=== PATIENT | female | born 1970 | race Caucasian/White ===

== ENCOUNTER 2017-09-05 14:36 | Emergency (ER) | payer BC, OTHER ==
[~2017-09-05] VITALS: Ht 177.8 cm; Wt 98.0 kg
[2017-09-05 14:45] VITALS: TEMP 36.9; Ht 177.8 cm; Wt 98.0 kg
[2017-09-05] MEDS ORDERED: ONDANSETRON INJ 2 MG/ML 2 ML VIAL IV STA (14:47)
[2017-09-05] MEDS ORDERED: KETOROLAC TROMETHAMINE 30 MG/ML VIAL IV STA (14:47)
[2017-09-05] MEDS ORDERED: SODIUM CHLORIDE 0.9% 1000ML 1,000 ML IV STA (14:47)
--- NOTE | 2017-09-05 14:55 | EMERGENCY ROOM VISIT NOTE ---
History Report prepared by Ross: Ben Pereyra Under the Supervision of: Dr. Otto Andujar M.D. First contact with patient: 14:42 Chief Complaint: ILLNESS Stated Complaint: ILLNESS History of Present Illness The patient is a 47 year old female who presents to the Emergency Room via EMS with complaints of a sudden illness that started around an hour ago. She states that when she first got up this morning, she felt a bit tired and appeared a bit pale, but other than that, the first part of the day seemed okay. The patient went to work, and was doing fine, but then all of a sudden she started feeling sick, with diarrhea initially. She says that her hands and feet started "twitching", and she felt flushed. The patient adds that she started feeling like she was getting hives with itching. She says that she was nauseous, and then vomited a bit later, and she says that she vomited a lot. The patient states that she also had a deep throbbing pain in her upper abdomen. She says that she then laid down, but got very weak and lightheaded. She states that she still feels very weak. The patient denies any fevers. She says that she has not had any known recent sick contacts with a similar illness. The patient states that she has not eaten anything abnormal recently. She says that she does not take any daily medications, but is diabetic and has mild hypertension. The patient notes that she has had a lot of family stress recently. She says that she has a history of a hysterectomy, cholecystectomy, and tubal ligation. Source of History: patient Onset: An hour ago Position: other (global) Quality: other (illness) Timing: other (sudden) Associated Symptoms: + nausea, + vomiting, + abdominal pain, + diarrhea, + fatigue, + weakness (and lightheaded), No fevers Note: Associated symptoms: Extremity "twitching". Itching. Review of Systems See HPI for pertinent positives & negatives. A total of 10 systems reviewed and were otherwise negative. Past Medical & Surgical Medical Problems: (1) Diabetes (2) HTN (hypertension) Surgical Problems: (1) History of cholecystectomy (2) History of hysterectomy (3) Hx of tubal ligation Family History No pertinent family history Social History Marital Status: Housing Status: lives with family Occupation Status: employed Current/Historical Medications Scheduled Ondasetron Odt (Zofran Odt), 4 MG SL Q6H Allergies Coded Allergies: Morphine and Related (Verified Allergy, Severe, Severe stomach pain, ) Sulfa Antibiotics (Verified Allergy, Intermediate, HIVES, 10/06/13) Physical Exam Vital Signs Date Time Temp Pulse Resp B/P (MAP) Pulse Ox O2 Delivery O2 Flow Rate FiO2 09/05/17 18:07 84 16 148/101 96 09/05/17 17:22 97 09/05/17 16:49 80 26 140/82 09/05/17 14:58 91 09/05/17 14:45 36.9 87 16 174/107 98 Room Air Physical Exam GENERAL: Patient is in no acute distress. HEENT: No acute trauma, normocephalic atraumatic, mucous membranes are a little bit dry, no nasal congestion, no scleral icterus. NECK: No stridor, no adenopathy, no meningismus, trachea is midline. LUNGS: Clear to auscultation bilaterally, no wheeze, no rhonchi, breath sounds equal. HEART: Without murmurs gallops or rubs, regular rate and rhythm. ABDOMEN: Mildly tender in the left lower quadrant. Soft, bowel sounds positive, no hernias, no peritonitis. EXTREMITIES: No cyanosis or edema, full range of motion of all the joints without pain or difficulty, no signs for acute trauma. NEUROLOGIC: Oriented x 3, no acute motor or sensory deficits, no focal weakness. SKIN: No rash, no jaundice, no diaphoresis. Medical Decision & Procedures ER Provider Diagnostic Interpretation: X-ray results as stated below per interpretation by me and the radiologist: ABDOMEN 2VIEW W/PA CHEST RTN HISTORY: 47 years-old Female pain, vomiting acute generalized abdominal pain with vomiting COMPARISON: None available TECHNIQUE: PA view the chest with erect and supine views of the abdomen FINDINGS: Cardiomediastinal and hilar silhouettes are within normal limits. No pneumothorax, pleural effusion, focal airspace consolidation or overt pulmonary edema. Bones of the chest appear grossly intact. Degenerative changes of the spine. Bowel gas pattern is nonobstructive. Multiple scattered small bowel air-fluid levels are noted throughout the abdomen, notably within the central abdomen. No pneumatosis or pneumoperitoneum. Cholecystectomy clips noted. Calcifications of the pelvis suggest phleboliths. No urolith or fracture. IMPRESSION: 1. Nonobstructive bowel gas pattern. Multiple scattered small bowel air-fluid levels throughout the abdomen suggest enteritis or ileus. 2. No pneumatosis or pneumoperitoneum. 3. Prior cholecystectomy. 4. No acute process of the chest. The above report was generated using voice recognition software. It may contain grammatical, syntax or spelling errors. Electronically signed by: Shukri Gaytan M.D. 09/05/2017 3:41 PM Dictated Date/Time: 09/05/2017 3:39 PM Laboratory Results 09/05/17 14:55 Red Blood Count 5.53, Mean Corpuscular Volume 85.7, Mean Corpuscular Hemoglobin 31.1, Mean Corpuscular Hemoglobin Concent 36.3, Mean Platelet Volume 9.2, Neutrophils (%) (Auto) 67.5, Lymphocytes (%) (Auto) 25.9, Monocytes (%) (Auto) 5.9, Eosinophils (%) (Auto) 0.4, Basophils (%) (Auto) 0.1, Neutrophils # (Auto) 6.15, Lymphocytes # (Auto) 2.36, Monocytes # (Auto) 0.54, Eosinophils # (Auto) 0.04, Basophils # (Auto) 0.01 09/05/17 14:55 Test 09/05/17 14:55 09/05/17 15:42 White Blood Count 9.12 K/uL (4.8-10.8) Red Blood Count 5.53 M/uL (4.2-5.4) Hemoglobin 17.2 g/dL (12.0-16.0) Hematocrit 47.4 % (37-47) Mean Corpuscular Volume 85.7 fL (80-100) Mean Corpuscular Hemoglobin 31.1 pg (25-34) Mean Corpuscular Hemoglobin Concent 36.3 g/dl (32-36) Platelet Count 261 K/uL (130-400) Mean Platelet Volume 9.2 fL (7.4-10.4) Neutrophils (%) (Auto) 67.5 % Lymphocytes (%) (Auto) 25.9 % Monocytes (%) (Auto) 5.9 % Eosinophils (%) (Auto) 0.4 % Basophils (%) (Auto) 0.1 % Neutrophils # (Auto) 6.15 K/uL (1.4-6.5) Lymphocytes # (Auto) 2.36 K/uL (1.2-3.4) Monocytes # (Auto) 0.54 K/uL (0.11-0.59) Eosinophils # (Auto) 0.04 K/uL (0-0.5) Basophils # (Auto) 0.01 K/uL (0-0.2) RDW Standard Deviation 39.9 fL (36.4-46.3) RDW Coefficient of Variation 12.8 % (11.5-14.5) Immature Granulocyte % (Auto) 0.2 % Immature Granulocyte # (Auto) 0.02 K/uL (0.00-0.02) Anion Gap 8.0 mmol/L (3-11) Est Creatinine Clear Calc Drug Dose 108.7 ml/min Estimated GFR () 99.5 Estimated GFR (Non- 85.8 BUN/Creatinine Ratio 16.0 (10-20) Calcium Level 9.6 mg/dl (8.5-10.1) Magnesium Level 2.2 mg/dl (1.8-2.4) Total Bilirubin 0.5 mg/dl (0.2-1) Aspartate Amino Transf (AST/SGOT) 13 U/L (15-37) Alanine Aminotransferase (ALT/SGPT) 27 U/L (12-78) Alkaline Phosphatase 80 U/L (45-117) Total Protein 7.8 gm/dl (6.4-8.2) Albumin 3.7 gm/dl (3.4-5.0) Globulin 4.1 gm/dl (2.5-4.0) Albumin/Globulin Ratio 0.9 (0.9-2) Lipase 240 U/L (73-393) Human Chorionic Gonadotropin, Qual NEG (NEG) Urine Color DK YELLOW Urine Appearance CLOUDY (CLEAR) Urine pH 5.0 (4.5-7.5) Urine Specific [place] 1.033 (1.000-1.030) Urine Protein 2+ (NEG) Urine Glucose (UA) 1+ (NEG) Urine Ketones TRACE (NEG) Urine Occult Blood 1+ (NEG) Urine Nitrite NEG (NEG) Urine Bilirubin NEG (NEG) Urine Urobilinogen NEG (NEG) Urine Leukocyte Esterase NEG (NEG) Urine WBC (Auto) 5-10 /hpf (0-5) Urine RBC (Auto) 0-4 /hpf (0-4) Urine Hyaline Casts (Auto) 10-30 /lpf (0-5) Urine Epithelial Cells (Auto) >30 /lpf (0-5) Urine Bacteria (Auto) NEG (NEG) Urine Crystals CALCIUM OXALATE (NONE Urine Pathogenic Casts 1-5 GRANULAR CASTS /lpf (0) Laboratory results reviewed by me. Medications Administered Medications (Trade) Dose Ordered Sig/Rosanna Route Start Time Stop Time Status Last Admin Dose Admin Ondansetron HCl (Zofran Inj) 4 mg NOW STAT IV 09/05/17 14:47 09/05/17 14:49 DC 09/05/17 15:09 4 MG Sodium Chloride 1,000 ml @ 999 mls/hr Q1H1M STAT IV 09/05/17 14:47 09/05/17 15:47 DC 09/05/17 15:09 999 MLS/HR Ketorolac Tromethamine (Toradol Inj) 30 mg NOW STAT IV 09/05/17 14:47 09/05/17 14:49 DC 09/05/17 15:09 30 MG ECG Per My Interpretation Indication: vomiting Rate (beats per minute): 85 Rhythm: normal sinus Findings: no ectopy, other (no ST elevation, no PVCs) ED Course 1443: The patient was evaluated in room A2. A complete history and physical exam was performed. 1447: Toradol Inj 30 mg IV, NSS 1000 ml @ 999 mls/hr IV, Zofran Inj 4 mg IV. 1637: I reevaluated the patient and she is doing better. She was updated. 1801: Reevaluated the patient and she is resting comfortably. Discussed results and discharge instructions: she verbalized understanding and agreement. The patient is ready for discharge. Medical Decision Differential diagnosis includes but is not limited to dehydration, electrolyte imbalance, food-borne or viral illness, pancreatitis, diverticulitis, anemia. There is no leukocytosis or concerning anemia. No significant electrolyte abnormality, kidney failure, hepatitis or pancreatitis. Urinalysis shows contamination, no infection. Obstruction series shows an ileus, no bowel obstruction, pneumonia or free air. On exam, the patient was not febrile or toxic. There was no peritonitis. Patient received IV Toradol, IV Zofran and IV saline. She is feeling improved. The patient presents with the sudden onset of abdominal cramping, vomiting and diarrhea. The illness is likely viral and/or foodborne. She is being discharged with Zofran, rest and hydration. If worsening, she can return. Medication Reconcilliation Current Medication List: was personally reviewed by me Blood Pressure Screening Patient's blood pressure: Elevated blood pressure Blood pressure disposition: Referred to PCP Impression Primary Impression: Nausea, vomiting and diarrhea Additional Impression: Abdominal cramping Scribe Attestation The scribe's documentation has been prepared under my direction and personally reviewed by me in its entirety. I confirm that the note above accurately reflects all work, treatment, procedures, and medical decision making performed by me. Departure Information Dispostion Home / Self-Care Prescriptions Ondasetron Odt (ZOFRAN ODT) 4 Mg Tab 4 MG SL Q6H for Nausea, #10 TAB Prov: Otto Andujar M.D. 09/05/17 Referrals Geremias Chavez M.D. (PCP) Forms HOME CARE DOCUMENTATION FORM, IMPORTANT VISIT INFORMATION, WORK / SCHOOL INSTRUCTIONS Patient Instructions My [facility] [employer] Additional Instructions bland diet---crackers, soup, toast, gatorade, rice tylenol for pain and aches zofran 1 tab every 6 hours for nausea rest return if worsening testing was all ok today--blood sugar was a little high Problem Qualifiers
[2017-09-05 15:08] LABS: BASO % 0.1 %; BASO ABS # 0.01 K/uL (0-0.2); EOS % 0.4 %; EOS ABS # 0.04 K/uL (0-0.5); HEMATOCRIT 47.4 % (37-47); HEMOGLOBIN 17.2 g/dL (12.0-16.0); IG# 0.02 K/uL (0.00-0.02); LYMPH % 25.9 %; LYMPH ABS # 2.36 K/uL (1.2-3.4); MEAN CELL VOLUME 85.7 fL (80-100); MEAN CORPUSCULAR HEMOGLOBIN 31.1 pg (25-34); MEAN CORPUSCULAR HGB CONC 36.3 g/dl (32-36); MEAN PLATELET VOLUME 9.2 fL (7.4-10.4); MONO % 5.9 %; MONO ABS # 0.54 K/uL (0.11-0.59); NEUT % 67.5 %; NEUT ABS # 6.15 K/uL (1.4-6.5); PLATELET COUNT 261 K/uL (130-400); RED CELL DISTRIBUTION WIDTH CV 12.8 % (11.5-14.5); RED CELL DISTRIBUTION WIDTH SD 39.9 fL (36.4-46.3); WHITE BLOOD COUNT 9.12 K/uL (4.8-10.8)
[2017-09-05 15:41] LABS: ALBUMIN 3.7 gm/dl (3.4-5.0); CALCIUM 9.6 mg/dl (8.5-10.1); CREATININE 0.82 mg/dl (0.60-1.20); POTASSIUM 3.3 mmol/L (3.5-5.1)
--- NOTE | 2017-09-05 15:42 | DIAGNOSTIC IMAGING REPORT ---
ABDOMEN 2VIEW W/PA CHEST RTN HISTORY: 47 years-old Female pain, vomiting acute generalized abdominal pain with vomiting COMPARISON: None available TECHNIQUE: PA view the chest with erect and supine views of the abdomen FINDINGS: Cardiomediastinal and hilar silhouettes are within normal limits. No pneumothorax, pleural effusion, focal airspace consolidation or overt pulmonary edema. Bones of the chest appear grossly intact. Degenerative changes of the spine. Bowel gas pattern is nonobstructive. Multiple scattered small bowel air-fluid levels are noted throughout the abdomen, notably within the central abdomen. No pneumatosis or pneumoperitoneum. Cholecystectomy clips noted. Calcifications of the pelvis suggest phleboliths. No urolith or fracture. IMPRESSION: 1. Nonobstructive bowel gas pattern. Multiple scattered small bowel air-fluid levels throughout the abdomen suggest enteritis or ileus. 2. No pneumatosis or pneumoperitoneum. 3. Prior cholecystectomy. 4. No acute process of the chest. The above report was generated using voice recognition software. It may contain grammatical, syntax or spelling errors. Electronically signed by: Shukri Gaytan M.D. 09/05/2017 3:41 PM Dictated Date/Time: 09/05/2017 3:39 PM
[2017-09-05 15:44] LABS: TOTAL PROTEIN 7.8 gm/dl (6.4-8.2)
[2017-09-05] MEDS ORDERED: ONDA4TAB10 SL (18:00)
[2017-09-05 18:07] VITALS: BP 148/101; PULSE 84; O2SAT 96
== END 2017-09-05 18:03 | disposition home or self-care (01) ==
LOC: C.EDA 14:36 → EDBD 14:36 → C.EDA 18:03
DX: R11.2 Nausea with vomiting, unspecified (principal); R19.7 Diarrhea, unspecified; R10.84 Generalized abdominal pain; E11.9 Type 2 diabetes mellitus without complications; I10 Essential (primary) hypertension; Z88.5 Allergy status to narcotic agent; Z88.2 Allergy status to sulfonamides

== ENCOUNTER 2017-09-26 09:55 | Emergency (ER) | payer OTHER ==
[~2017-09-26] VITALS: Ht 177.8 cm; Wt 94.0 kg
[~2017-09-26 09:55] MED LIST: ONDA4TAB10 SL
[2017-09-26 09:58] VITALS: TEMP 36.7; Ht 177.8 cm; Wt 94.0 kg
[2017-09-26] MEDS ORDERED: SODIUM CHLORIDE 0.9% 1000ML 1,000 ML IV STA (10:09)
[2017-09-26] MEDS ORDERED: ONDANSETRON INJ 2 MG/ML 2 ML VIAL IV STA (10:09)
[2017-09-26] MEDS ORDERED: GI COCKTAIL PO STA (10:10)
[2017-09-26] MEDS ORDERED: LIDOCAINE HCL 2% VISC SOLN 20 ML UDC ONE (10:58)
[2017-09-26] MEDS ORDERED: ALUMINUM/MAGNESIUM SUSP 30 ML UDC ONE (10:59)
[2017-09-26 11:09] LABS: BASO % 0.2 %; BASO ABS # 0.02 K/uL (0-0.2); EOS % 0.9 %; EOS ABS # 0.08 K/uL (0-0.5); HEMATOCRIT 44.8 % (37-47); HEMOGLOBIN 16.8 g/dL (12.0-16.0); IG# 0.01 K/uL (0.00-0.02); LYMPH % 22.7 %; LYMPH ABS # 2.11 K/uL (1.2-3.4); MEAN CELL VOLUME 85.7 fL (80-100); MEAN CORPUSCULAR HEMOGLOBIN 32.1 pg (25-34); MEAN CORPUSCULAR HGB CONC 37.5 g/dl (32-36); MEAN PLATELET VOLUME 9.3 fL (7.4-10.4); MONO % 6.8 %; MONO ABS # 0.63 K/uL (0.11-0.59); NEUT % 69.3 %; NEUT ABS # 6.46 K/uL (1.4-6.5); PLATELET COUNT 259 K/uL (130-400); RED CELL DISTRIBUTION WIDTH CV 12.7 % (11.5-14.5); WHITE BLOOD COUNT 9.31 K/uL (4.8-10.8)
[2017-09-26 11:26] LABS: ALBUMIN 3.8 gm/dl (3.4-5.0); CALCIUM 9.1 mg/dl (8.5-10.1); CREATININE 0.76 mg/dl (0.60-1.20); POTASSIUM 3.8 mmol/L (3.5-5.1)
[2017-09-26] MEDS ORDERED: OPTIRAY 320 IV PRN (12:00)
--- NOTE | 2017-09-26 12:17 | DIAGNOSTIC IMAGING REPORT ---
ABDOMEN AND PELVIS CT WITH IV CONTRAST CT DOSE: 1114.43 mGycm HISTORY: Acute severe epigastric abdominal pain severe epigastric abd pain TECHNIQUE: Multiaxial CT images of the abdomen and pelvis were performed following the use of intravenous contrast. A dose lowering technique was utilized adhering to the principles of ALARA. COMPARISON STUDY: None. FINDINGS: Lung bases are clear with minimal dependent subsegmental bibasilar atelectasis. There is no pneumatosis or pneumoperitoneum identified. The imaged inferior cardiac chambers are unremarkable. Prior cholecystectomy. Minimal intrahepatic biliary ductal dilation is likely secondary to postcholecystectomy state. The liver otherwise appears unremarkable. The spleen, pancreas and adrenal glands are within normal limits. Patent portal vein. Abdominal aorta is normal in course and caliber without aneurysm or dissection with mild mixed plaquing. No bulky adenopathy identified. Kidneys, ureters and bladder are within normal limits. Mild urinary bladder distention. Prior hysterectomy. No adnexal mass lesions. There is trace free fluid within the cul-de-sac. No bowel obstruction or focal bowel wall thickening identified. Several fluid-filled nondilated loops of ileum are noted along with fluid within the right hemicolon. The visualized appendix appears normal, the distal tip not definitively seen. Soft tissues are unremarkable. Bones appear intact. Facet arthrosis of the lower lumbar spine. IMPRESSION: 1. No acute intra-abdominal or intrapelvic abnormality identified. Normal appendix. 2. No bowel obstruction. Fluid-filled loops of ileum with fluid also noted within the right hemicolon is likely physiologic with enteritis/diarrheal state also within the differential. 3. Prior cholecystectomy and hysterectomy. 4. Minimal free pelvic fluid, possibly physiologic. Electronically signed by: Shukri Gaytan M.D. 09/26/2017 12:16 PM Dictated Date/Time: 09/26/2017 12:08 PM
[2017-09-26 12:37] VITALS: BP 195/112; PULSE 88; O2SAT 98
--- NOTE | 2017-09-26 14:02 | EMERGENCY ROOM VISIT NOTE ---
History Report prepared by Ross: James Cantu Under the Supervision of: Dr. Ismael Moctezuma D.O. First contact with patient: 09:59 Chief Complaint: ABDOMINAL PAIN Stated Complaint: stomach pain History of Present Illness The patient is a 47 year old female who presents to the Emergency Room with complaints of intermittent epigastric abdominal pain beginning shortly prior to arrival. She describes her pain as a feeling of "heaviness". The patient's pain has now resolved. She also complains of nausea and diarrhea. She denies any modifying factors (not worsened with eating). The patient was seen in the ED three weeks ago for similar symptoms. She states that she has been having episodes of this pain for about there years. Her most recent episode before today was three weeks ago. The patient's last normal bowel movement was one hour ago. Pt denies headache, change in vision, fevers, chest pain, shortness of breath, vomiting, pain with urination, and melena. She has a history of complete hysterectomy and cholecystectomy. She has followed up with her GI doctor for her symptoms in the past. Source of History: patient Onset: Shortly prior to arrival Position: abdomen (epigastric) Quality: other ("heaviness") Timing: intermittent, resolved Modifying Factors (Worsening): other (none) Modifying Factors (Relieving): other (none) Associated Symptoms: + nausea, + diarrhea, No fevers, No headache, No chest pain, No SOB, No vomiting, No melena, No urinary symptoms Review of Systems See HPI for pertinent positives & negatives. A total of 10 systems reviewed and were otherwise negative. Past Medical & Surgical Medical Problems: (1) Diabetes (2) HTN (hypertension) Surgical Problems: (1) History of cholecystectomy (2) History of hysterectomy (3) Hx of tubal ligation Family History No pertinent family history Social History Smoking Status: Unknown if Ever Smoked Marital Status: Housing Status: lives with family Occupation Status: employed Current/Historical Medications No Active Prescriptions or Reported Meds Allergies Coded Allergies: Morphine and Related (Verified Allergy, Severe, Severe stomach pain, ) Sulfa Antibiotics (Verified Allergy, Intermediate, HIVES, 09/26/17) Physical Exam Vital Signs Date Time Temp Pulse Resp B/P (MAP) Pulse Ox O2 Delivery O2 Flow Rate FiO2 09/26/17 12:37 88 18 195/112 98 Room Air 09/26/17 09:58 36.7 80 20 205/118 98 Room Air Physical Exam GENERAL: Standing up in room, minimal distress, non-toxic, holding epigastric region. EYE EXAM: normal conjunctiva. OROPHARYNX: no exudate, no erythema, lips, buccal mucosa, and tongue normal and mucous membranes are moist NECK: supple, no nuchal rigidity, no adenopathy, non-tender LUNGS: Clear to auscultation. Normal chest wall mechanics HEART: no murmurs, S1 normal and S2 normal ABDOMEN: abdomen soft, normo-active bowel sounds, no masses, no rebound or guarding. Tender to palpation of the epigastric region. BACK: Back is symmetrical on inspection and there is no deformity, no midline tenderness, no CVA tenderness. SKIN: no rashes and no bruising UPPER EXTREMITIES: upper extremities are grossly normal. LOWER EXTREMITIES: No pitting edema. NEURO EXAM: Normal sensorium, cranial nerves II-XII grossly intact, normal speech, no gross weakness of arms, no gross weakness of legs. Medical Decision & Procedures ER Provider Diagnostic Interpretation: Radiology results as stated below per my review and the radiologist's interpretation: ABDOMEN AND PELVIS CT WITH IV CONTRAST FINDINGS: Lung bases are clear with minimal dependent subsegmental bibasilar atelectasis. There is no pneumatosis or pneumoperitoneum identified. The imaged inferior cardiac chambers are unremarkable. Prior cholecystectomy. Minimal intrahepatic biliary ductal dilation is likely secondary to postcholecystectomy state. The liver otherwise appears unremarkable. The spleen, pancreas and adrenal glands are within normal limits. Patent portal vein. Abdominal aorta is normal in course and caliber without aneurysm or dissection with mild mixed plaquing. No bulky adenopathy identified. Kidneys, ureters and bladder are within normal limits. Mild urinary bladder distention. Prior hysterectomy. No adnexal mass lesions. There is trace free fluid within the cul-de-sac. No bowel obstruction or focal bowel wall thickening identified. Several fluid-filled nondilated loops of ileum are noted along with fluid within the right hemicolon. The visualized appendix appears normal, the distal tip not definitively seen. Soft tissues are unremarkable. Bones appear intact. Facet arthrosis of the lower lumbar spine. IMPRESSION: 1. No acute intra-abdominal or intrapelvic abnormality identified. Normal appendix. 2. No bowel obstruction. Fluid-filled loops of ileum with fluid also noted within the right hemicolon is likely physiologic with enteritis/diarrheal state also within the differential. 3. Prior cholecystectomy and hysterectomy. 4. Minimal free pelvic fluid, possibly physiologic. Electronically signed by: Shukri Gaytan M.D. 09/26/2017 12:16 PM Laboratory Results 09/26/17 10:55 Red Blood Count 5.23, Mean Corpuscular Volume 85.7, Mean Corpuscular Hemoglobin 32.1, Mean Corpuscular Hemoglobin Concent 37.5, Mean Platelet Volume 9.3, Neutrophils (%) (Auto) 69.3, Lymphocytes (%) (Auto) 22.7, Monocytes (%) (Auto) 6.8, Eosinophils (%) (Auto) 0.9, Basophils (%) (Auto) 0.2, Neutrophils # (Auto) 6.46, Lymphocytes # (Auto) 2.11, Monocytes # (Auto) 0.63, Eosinophils # (Auto) 0.08, Basophils # (Auto) 0.02 09/26/17 10:55 Test 09/26/17 10:30 09/26/17 10:55 Urine Color YELLOW Urine Appearance CLEAR (CLEAR) Urine pH 5.5 (4.5-7.5) Urine Specific [place] 1.015 (1.000-1.030) Urine Protein 1+ (NEG) Urine Glucose (UA) NEG (NEG) Urine Ketones 1+ (NEG) Urine Occult Blood TRACE (NEG) Urine Nitrite NEG (NEG) Urine Bilirubin NEG (NEG) Urine Urobilinogen NEG (NEG) Urine Leukocyte Esterase SMALL (NEG) Urine WBC (Auto) 1-5 /hpf (0-5) Urine RBC (Auto) 0-4 /hpf (0-4) Urine Hyaline Casts (Auto) 1-5 /lpf (0-5) Urine Epithelial Cells (Auto) 10-20 /lpf (0-5) Urine Bacteria (Auto) NEG (NEG) Urine Test NEG (NEG) White Blood Count 9.31 K/uL (4.8-10.8) Red Blood Count 5.23 M/uL (4.2-5.4) Hemoglobin 16.8 g/dL (12.0-16.0) Hematocrit 44.8 % (37-47) Mean Corpuscular Volume 85.7 fL (80-100) Mean Corpuscular Hemoglobin 32.1 pg (25-34) Mean Corpuscular Hemoglobin Concent 37.5 g/dl (32-36) Platelet Count 259 K/uL (130-400) Mean Platelet Volume 9.3 fL (7.4-10.4) Neutrophils (%) (Auto) 69.3 % Lymphocytes (%) (Auto) 22.7 % Monocytes (%) (Auto) 6.8 % Eosinophils (%) (Auto) 0.9 % Basophils (%) (Auto) 0.2 % Neutrophils # (Auto) 6.46 K/uL (1.4-6.5) Lymphocytes # (Auto) 2.11 K/uL (1.2-3.4) Monocytes # (Auto) 0.63 K/uL (0.11-0.59) Eosinophils # (Auto) 0.08 K/uL (0-0.5) Basophils # (Auto) 0.02 K/uL (0-0.2) RDW Standard Deviation 40.0 fL (36.4-46.3) RDW Coefficient of Variation 12.7 % (11.5-14.5) Immature Granulocyte % (Auto) 0.1 % Immature Granulocyte # (Auto) 0.01 K/uL (0.00-0.02) Anion Gap 6.0 mmol/L (3-11) Est Creatinine Clear Calc Drug Dose 114.9 ml/min Estimated GFR () 109.0 Estimated GFR (Non- 94.1 BUN/Creatinine Ratio 22.2 (10-20) Calcium Level 9.1 mg/dl (8.5-10.1) Total Bilirubin 0.6 mg/dl (0.2-1) Direct Bilirubin 0.1 mg/dl (0-0.2) Aspartate Amino Transf (AST/SGOT) 16 U/L (15-37) Alanine Aminotransferase (ALT/SGPT) 23 U/L (12-78) Alkaline Phosphatase 69 U/L (45-117) Total Protein 8.0 gm/dl (6.4-8.2) Albumin 3.8 gm/dl (3.4-5.0) Lipase 230 U/L (73-393) Laboratory results per my review. Medications Administered Medications (Trade) Dose Ordered Sig/Rosanna Route Start Time Stop Time Status Last Admin Dose Admin Sodium Chloride 1,000 ml @ 999 mls/hr Q1H1M STAT IV 5/9/18 10:09 09/26/17 11:09 DC 09/26/17 11:07 999 MLS/HR Ondansetron HCl (Zofran Inj) 4 mg NOW STAT IV 09/26/17 10:09 09/26/17 10:11 DC 09/26/17 11:07 4 MG Miscellaneous Medication (Gi Cocktail) 24 ml NOW STAT PO 09/26/17 10:10 09/26/17 10:11 DC 09/26/17 11:08 24 ML ED Course ED COURSE: Vital signs were reviewed and showed hypertension. The patients medical record was reviewed The above diagnostic studies were performed and reviewed. ED treatments and interventions as stated above. 1002: The patient was evaluated in room A9B. A complete history and physical examination was performed. 1009: Ordered Zofran Inj 4 mg IV, Sodium Chloride 1000 ml @ 999 mls/hr IV. 1010: Ordered GI Cocktail 24 mL PO. 1230: Upon reevaluation, the patient is resting comfortably. She notes that she has known hypertension with her blood pressure usually at around 170 systolic, but does not take medication for this. I advised she follow up with her PCP about this. I discussed my findings with the patient and she understands and agrees with the treatment plan. Based on the patients age, coexisting illnesses, exam and lab findings the decision to treat as an outpatient was made. The patient remained stable while under my care. The patient appeared well at the time of discharge. Medical Decision Differential diagnoses includes but is not limited to gastritis, peptic ulcer disease, GERD, gallbladder disease, pancreatitis, small bowel obstruction, acute coronary syndrome, pericarditis, ischemic bowel, irritable bowel disease, irritable bowel syndrome, appendicitis, diverticulitis, malignancy, hernia, urinary tract infection, torsion, /ectopic , perforation, trauma, infectious. Patient is a 47-year-old female that presents the ER for epigastric abdominal pain associated with nausea. She notes that it was initially extremely severe in nature and has now resolved. She has been getting this for the past 3 years. It comes and goes every 3 months. CBC along with BMP, LFTs, bilirubin lipase is unremarkable. UA was negative. was negative. CT abdomen pelvis was fairly unremarkable. Patient had complete resolution of her symptoms. She was discharged follow-up with her GI physician as an outpatient. Discussed with Pt concerning signs and symptoms to watch out for. Pt was instructed to follow up with their PCP and discussed with the patient their option to return to the ED at anytime for persistent or worsening symptoms. The appropriate anticipatory guidance and out-patient management, including indications for return to the emergency department, were explained at length to the patient and understood. Medication Reconcilliation Current Medication List: was personally reviewed by me Blood Pressure Screening Patient's blood pressure: Elevated blood pressure Blood pressure disposition: Referred to PCP Impression Primary Impression: Abdominal pain Scribe Attestation The scribe's documentation has been prepared under my direction and personally reviewed by me in its entirety. I confirm that the note above accurately reflects all work, treatment, procedures, and medical decision making performed by me. Departure Information Dispostion Home / Self-Care Prescriptions No Active Prescriptions or Reported Meds Referrals Geremias Chavez M.D. (PCP) Forms Call Back Authorization, HOME CARE DOCUMENTATION FORM, IMPORTANT VISIT INFORMATION Patient Instructions Abdominal Pain - [facility] Additional Instructions Please follow up with your primary care doctor with in the next 24 hours. Any worsening of your symptoms, please return to the ED immediately. This includes any fevers greater than 100.4, worsening pain, chest pain, shortness breath, persistent nausea, vomiting, unable to eat or drink, or any other concerning signs or symptoms from your standpoint. Please take Tylenol or Motrin as needed for pain. Please make sure you follow-up with your GI doctor in regards to your intermittent abdominal pain. Problem Qualifiers Primary Impression: Abdominal pain Abdominal location: unspecified location Qualified Codes: R10.9 - Unspecified abdominal pain
== END 2017-09-26 12:51 | disposition home or self-care (01) ==
LOC: C.EDB 09:56 → C.EDA 12:51
DX: R10.13 Epigastric pain (principal); R11.2 Nausea with vomiting, unspecified; E11.9 Type 2 diabetes mellitus without complications; I10 Essential (primary) hypertension; Z90.49 Acquired absence of other specified parts of digestive tract; Z90.710 Acquired absence of both cervix and uterus; Z98.51 Tubal ligation status; Z88.5 Allergy status to narcotic agent; Z88.1 Allergy status to other antibiotic agents; Z23 Encounter for immunization

== ENCOUNTER 2017-12-31 13:44 | Emergency (ER) | payer OTHER ==
[~2017-12-31] VITALS: Ht 177.8 cm; Wt 95.3 kg
[2017-12-31 13:50] VITALS: Ht 177.8 cm; Wt 95.3 kg
[2017-12-31 13:57] VITALS: O2SAT 92
[2017-12-31] MEDS ORDERED: ATEN-173 PO (14:03)
[2017-12-31] MEDS ORDERED: FAMOTIDINE 20MG/5ML IV PUSH IV STA (14:11)
[2017-12-31] MEDS ORDERED: SODIUM CHLORIDE 0.9% 1000ML 1,000 ML IV STA (14:11)
[2017-12-31 14:45] LABS: BASO % 0.1 %; BASO ABS # 0.01 K/uL (0-0.2); EOS % 0.4 %; EOS ABS # 0.04 K/uL (0-0.5); HEMATOCRIT 49.3 % (37-47); HEMOGLOBIN 17.7 g/dL (12.0-16.0); IG# 0.04 K/uL (0.00-0.02); LYMPH % 17.8 %; LYMPH ABS # 1.98 K/uL (1.2-3.4); MEAN CELL VOLUME 88.4 fL (80-100); MEAN CORPUSCULAR HEMOGLOBIN 31.7 pg (25-34); MEAN CORPUSCULAR HGB CONC 35.9 g/dl (32-36); MEAN PLATELET VOLUME 9.6 fL (7.4-10.4); MONO % 6.7 %; MONO ABS # 0.75 K/uL (0.11-0.59); NEUT % 74.6 %; NEUT ABS # 8.33 K/uL (1.4-6.5); PLATELET COUNT 261 K/uL (130-400); RED CELL DISTRIBUTION WIDTH SD 41.8 fL (36.4-46.3); WHITE BLOOD COUNT 11.15 K/uL (4.8-10.8)
[2017-12-31 15:03] LABS: ALBUMIN 3.7 gm/dl (3.4-5.0); ALKALINE PHOSPHATASE 79 U/L (45-117); ALT/SGPT 29 U/L (12-78); AST/SGOT 19 U/L (15-37); BLOOD UREA NITROGEN 15 mg/dl (7-18); CALCIUM 9.3 mg/dl (8.5-10.1); CARBON DIOXIDE 28 mmol/L (21-32); CREATININE 0.94 mg/dl (0.60-1.20); GLUCOSE 219 mg/dl (70-99); LIPASE 244 U/L (73-393); POTASSIUM 3.7 mmol/L (3.5-5.1); SODIUM 135 mmol/L (136-145); TOTAL PROTEIN 8.1 gm/dl (6.4-8.2)
--- NOTE | 2017-12-31 15:28 | DIAGNOSTIC IMAGING REPORT ---
CHEST ONE VIEW PORTABLE CLINICAL HISTORY: 47 years-old Female presenting with ABDOMINAL PAIN/GI. TECHNIQUE: Portable upright AP view of the chest was obtained. COMPARISON: 09/05/2017. FINDINGS: Cardiomediastinal silhouette normal. Lungs and pleural spaces clear. Degenerative changes of the thoracic spine. Upper abdomen normal. IMPRESSION: 1. No acute cardiopulmonary disease. Electronically signed by: Wilbur Urbano M.D. 12/31/2017 3:27 PM Dictated Date/Time: 12/31/2017 3:26 PM
[2017-12-31] MEDS ORDERED: NITROFURANTOIN MONOHYDRATE 100 MG CAP PO STA (15:48)
[2017-12-31] MEDS ORDERED: NITR-5 PO (15:52)
[2017-12-31] MEDS ORDERED: FAMO40TA6 PO (15:52)
[2017-12-31 16:05] VITALS: BP 141/72; PULSE 68; TEMP 36.9; O2SAT 98
--- NOTE | 2017-12-31 21:18 | EMERGENCY ROOM VISIT NOTE ---
History Report prepared by Ross: Angie Toure Under the Supervision of: Dr. Julián Montiel M.D. 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 pt c/o n/v . medical personel told medic pt threw self on floor while she was in pain this has happened before. pt reports she has been in the ed for same sx 2 x in the past and told all tests were fine. gall bladder and pancreas tests were negative. History of Present Illness The patient is a 47 year old female who presents to the Emergency Room with complaints of persistent epigastric abdominal pain since earlier this morning. She states this is the third episode of the same pain in 3 months. The pain started while she was at work this morning at [employer] and she describes it as feeling like "a gas bubble". She then felt flushed and diaphoretic and had 1 episode of diarrhea, so EMS was called. She has not experienced melena or hematochezia. She rates her pain as a 2/10 in severity. She did experience nausea and lightheadedness but did not vomit. She did briefly experience chest pain. The patient notes she did eat about 30 minutes before the pain started, but denies the meal being very large or greasy. Her last colonoscopy was approximately 15 years ago. The patient has a history of diabetes which she states is currently managed by diet. She also takes medication for hypertension. She denies any recent difficulty breathing. She still has her appendix but no longer has her gallbladder. She has come to the ED in the past for her pain, but states "all the tests were negative". Source of History: patient Onset: earlier this morning Position: abdomen (epigastric area) Symptom Intensity: 2/10 Timing: other (persistent) Associated Symptoms: + diaphoresis, + chest pain, + nausea, + diarrhea, No SOB, No vomiting, No melena, No hematochezia Review of Systems See HPI for pertinent positives and negatives. A total of ten systems were reviewed and were otherwise negative. Past Medical & Surgical Medical Problems: (1) Diabetes (2) HTN (hypertension) Surgical Problems: (1) History of cholecystectomy (2) History of hysterectomy (3) Hx of tubal ligation Family History No pertinent family history Social History Smoking Status: Never Smoker Alcohol Use: none Drug Use: none Marital Status: Housing Status: lives with family Occupation Status: employed Current/Historical Medications Scheduled Atenolol (Tenormin), 0.5 TAB PO DAILY Famotidine (Pepcid), 1 TAB PO DAILY Nitrofurantoin Monohyd Macrocr (Macrobid), 100 MG PO BID Allergies Coded Allergies: Morphine and Related (Verified Allergy, Severe, Severe stomach pain, ) Sulfa Antibiotics (Verified Allergy, Intermediate, HIVES, 12/31/17) Physical Exam Vital Signs Date Time Temp Pulse Resp B/P (MAP) Pulse Ox O2 Delivery O2 Flow Rate FiO2 12/31/17 16:05 36.9 68 20 141/72 98 12/31/17 14:37 63 22 130/79 98 Room Air 12/31/17 13:58 63 12/31/17 13:57 92 Room Air 12/31/17 13:50 37.1 66 18 114/81 92 Room Air Physical Exam GENERAL: Awake, alert, lying with eyes closed on stretcher, well-appearing, in no distress HENT: Normocephalic, atraumatic. Oropharynx unremarkable. EYES: Normal conjunctiva. Sclera non-icteric. NECK: Supple. No nuchal rigidity. RESPIRATORY: Clear to auscultation. No wheezes. Normal respiratory effort. CARDIAC: Normal rate. Normal rhythm. Extremities warm and well perfused. GI: Soft, non-distended. No tenderness to palpation. No rebound or guarding. No masses. RECTAL: Deferred. MUSCULOSKELETAL: Atraumatic. Chest examination reveals no tenderness. There is no CVA tenderness to palpation. LOWER EXTREMITIES: Calves are equal size bilaterally and non-tender. No edema NEURO: Normal sensorium. No sensory or motor deficits noted. No facial droop. SKIN: Warm and dry. No rash or jaundice noted. Medical Decision & Procedures ER Provider Diagnostic Interpretation: Radiology results as stated below per my review and radiologist interpretation: CHEST ONE VIEW PORTABLE CLINICAL HISTORY: 47 years-old Female presenting with ABDOMINAL PAIN/GI. TECHNIQUE: Portable upright AP view of the chest was obtained. COMPARISON: 09/05/2017. FINDINGS: Cardiomediastinal silhouette normal. Lungs and pleural spaces clear. Degenerative changes of the thoracic spine. Upper abdomen normal. IMPRESSION: 1. No acute cardiopulmonary disease. Electronically signed by: Wilbur Urbano M.D. 12/31/2017 3:27 PM Laboratory Results 12/31/17 14:30 Red Blood Count 5.58, Mean Corpuscular Volume 88.4, Mean Corpuscular Hemoglobin 31.7, Mean Corpuscular Hemoglobin Concent 35.9, Mean Platelet Volume 9.6, Neutrophils (%) (Auto) 74.6, Lymphocytes (%) (Auto) 17.8, Monocytes (%) (Auto) 6.7, Eosinophils (%) (Auto) 0.4, Basophils (%) (Auto) 0.1, Neutrophils # (Auto) 8.33, Lymphocytes # (Auto) 1.98, Monocytes # (Auto) 0.75, Eosinophils # (Auto) 0.04, Basophils # (Auto) 0.01 12/31/17 14:30 Test 12/31/17 14:22 12/31/17 14:30 Urine Color YELLOW Urine Appearance CLOUDY (CLEAR) Urine pH 5.0 (4.5-7.5) Urine Specific [place] 1.013 (1.000-1.030) Urine Protein 1+ (NEG) Urine Glucose (UA) NEG (NEG) Urine Ketones TRACE (NEG) Urine Occult Blood TRACE (NEG) Urine Nitrite NEG (NEG) Urine Bilirubin NEG (NEG) Urine Urobilinogen NEG (NEG) Urine Leukocyte Esterase TRACE (NEG) Urine WBC (Auto) 5-10 /hpf (0-5) Urine RBC (Auto) 0-4 /hpf (0-4) Urine Hyaline Casts (Auto) 10-30 /lpf (0-5) Urine Epithelial Cells (Auto) >30 /lpf (0-5) Urine Bacteria (Auto) 1+ (NEG) White Blood Count 11.15 K/uL (4.8-10.8) Red Blood Count 5.58 M/uL (4.2-5.4) Hemoglobin 17.7 g/dL (12.0-16.0) Hematocrit 49.3 % (37-47) Mean Corpuscular Volume 88.4 fL (80-100) Mean Corpuscular Hemoglobin 31.7 pg (25-34) Mean Corpuscular Hemoglobin Concent 35.9 g/dl (32-36) Platelet Count 261 K/uL (130-400) Mean Platelet Volume 9.6 fL (7.4-10.4) Neutrophils (%) (Auto) 74.6 % Lymphocytes (%) (Auto) 17.8 % Monocytes (%) (Auto) 6.7 % Eosinophils (%) (Auto) 0.4 % Basophils (%) (Auto) 0.1 % Neutrophils # (Auto) 8.33 K/uL (1.4-6.5) Lymphocytes # (Auto) 1.98 K/uL (1.2-3.4) Monocytes # (Auto) 0.75 K/uL (0.11-0.59) Eosinophils # (Auto) 0.04 K/uL (0-0.5) Basophils # (Auto) 0.01 K/uL (0-0.2) RDW Standard Deviation 41.8 fL (36.4-46.3) RDW Coefficient of Variation 13.0 % (11.5-14.5) Immature Granulocyte % (Auto) 0.4 % Immature Granulocyte # (Auto) 0.04 K/uL (0.00-0.02) Anion Gap 7.0 mmol/L (3-11) Est Creatinine Clear Calc Drug Dose 93.5 ml/min Estimated GFR () 84.3 Estimated GFR (Non- 72.8 BUN/Creatinine Ratio 16.0 (10-20) Calcium Level 9.3 mg/dl (8.5-10.1) Total Bilirubin 0.4 mg/dl (0.2-1) Direct Bilirubin < 0.1 mg/dl (0-0.2) Aspartate Amino Transf (AST/SGOT) 19 U/L (15-37) Alanine Aminotransferase (ALT/SGPT) 29 U/L (12-78) Alkaline Phosphatase 79 U/L (45-117) Troponin I < 0.015 ng/ml (0-0.045) Total Protein 8.1 gm/dl (6.4-8.2) Albumin 3.7 gm/dl (3.4-5.0) Lipase 244 U/L (73-393) Human Chorionic Gonadotropin, Qual NEG (NEG) Laboratory results reviewed by me Medications Administered Medications (Trade) Dose Ordered Sig/Rosanna Route Start Time Stop Time Status Last Admin Dose Admin Sodium Chloride 1,000 ml @ 999 mls/hr Q1H1M STAT IV 12/31/17 14:11 12/31/17 15:11 DC 12/31/17 14:35 999 MLS/HR Famotidine (Pepcid 20mg Iv Push) 20 mg ONE STAT IV 12/31/17 14:11 12/31/17 14:12 DC 12/31/17 14:35 20 MG Nitrofurantoin Macrocrystals (Macrobid Cap) 100 mg NOW STAT PO 12/31/17 15:48 12/31/17 15:49 DC 12/31/17 16:01 100 MG ECG Per My Interpretation Indication: chest pain Rate (beats per minute): 60 Rhythm: normal sinus Findings: other (normal intervals, normal axis, no ST segment elevation) Comparison ECG Date: In comparison to EKG from September 05, 2017, no change ED Course 1403: The patient was evaluated in room A11A. A complete history and physical exam was performed. 1411: Famotidine 20 mg IV, NSS 1000 ml @ 999 mls/hr IV. 1545: I reevaluated the patient. She is feeling well and is ready to go home. I discussed her results and discharge instructions and she verbalized complete understanding and agreement. 1548: Macrobid 100 mg PO. Medical Decision Triage Nursing notes reviewed. The patient's presentation and history were concerning for abdominal pain. Differential diagnosis: Etiologies such as appendicitis, diverticulitis, PUD, biliary pathology, UTI, pancreatitis, obstruction, mesenteric ischemia, aortic pathology, infections, inflammatory bowel disease, renal colic, as well as others were entertained. Patient presentation seems consistent with likely a possible gastric in etiology. Prior cholecystectomy and hysterectomy. No lower abdominal pain. Transient in nature shortly after eating. Benign abdomen now. States she had some transient midsternal chest pressure during the middle of symptoms that quickly resolved. Minimal symptoms now without treatment. History of similar in August and September of this year. Has GI follow-up on Sunday had long-standing issues with her stomach. Lower suspicion for cardiac etiology but EKG and troponin were completed. Chest x-ray completed. Doubt PE or dissection. Chest x-ray unremarkable. Labs for hepatitis and pancreatitis were sent and unremarkable. is negative. Given some Pepcid and IV fluid she is improved now. I do believe this is likely more gastric in nature. Doubt infectious etiology. Does have a history of IBS which may be contributing. Has established follow-up in 2 days with GI. Feel at this point she stable for discharge and follow-up with them. Would recommend a course of Pepcid which I discussed with the patient. Does endorse some urinary symptoms. Will start on Macrobid. Discussed return precautions. Medication Reconcilliation Current Medication List: was personally reviewed by me Blood Pressure Screening Patient's blood pressure: Normal blood pressure Blood pressure disposition: Did not require urgent referral Impression Primary Impression: Epigastric abdominal pain Additional Impression: UTI (urinary tract infection) Scribe Attestation The scribe's documentation has been prepared under my direction and personally reviewed by me in its entirety. I confirm that the note above accurately reflects all work, treatment, procedures, and medical decision making performed by me. Departure Information Dispostion Home / Self-Care Prescriptions Famotidine (PEPCID) 40 Mg Tab 1 TAB PO DAILY for 30 Days, #15 TAB 0 Refills Prov: Julián Montiel M.D. 12/31/17 Nitrofurantoin Monohyd Macrocr (Macrobid) 100 Mg Cap 100 MG PO BID for 5 Days, #10 CAP Prov: Julián Montiel M.D. 12/31/17 Referrals Geremias Chavez M.D. (PCP) Patient Instructions My [facility] Additional Instructions Please continue to maintain hydration and eat healthy regular small meals. Utilize the antibiotics for urinary symptoms. Follow-up with GI as established in 2 days. If you develop new or concerning symptoms including but not limited to chest pain, shortness of breath, severe abdominal pain please return to the emergency department for reevaluation. Would trial a course of Pepcid for the next several days and to follow-up with GI. Problem Qualifiers Additional Impression: UTI (urinary tract infection) Urinary tract infection type: acute cystitis Hematuria presence: with hematuria Qualified Codes: N30.01 - Acute cystitis with hematuria
== END 2017-12-31 16:06 | disposition home or self-care (01) ==
LOC: EDBD 13:44 → C.EDA 13:45
DX: R10.13 Epigastric pain (principal); N30.01 Acute cystitis with hematuria; Z87.19 Personal history of other diseases of the digestive system; E11.9 Type 2 diabetes mellitus without complications; I10 Essential (primary) hypertension; Z90.49 Acquired absence of other specified parts of digestive tract; Z90.710 Acquired absence of both cervix and uterus; Z79.899 Other long term (current) drug therapy; Z88.2 Allergy status to sulfonamides; Z88.6 Allergy status to analgesic agent

== ENCOUNTER 2025-01-07 20:08 | Inpatient (IN) ==
--- NOTE | 2025-01-07 20:59 | Emergency Department Note ---
Impression & Plan Septic arthritis ED Provider Note CHIEF COMPLAINT: Knee pain, chills, back pain. HISTORY OF PRESENTING ILLNESS: The patient is a pleasant 54-year-old female who arrives to the emergency department for evaluation of left knee pain, with swelling, and warmth. She reports she is also developing bilateral back pain, and fever with rigors. She states previous meniscus repair on the left knee approximately 10 years ago. She states also a history of bulging disks in the back. She reports no injury. She states she may have been favoring her left knee causing the back pain, however she is unsure. She reports no dysuria, abdominal pain, nausea, or vomiting. She is not currently febrile, however she does have tachycardia. REVIEW OF SYSTEMS: See HPI for pertinent positives and pertinent negatives. ALLERGIES: See below MEDICATIONS: See below PAST MEDICAL HISTORY: See below PHYSICAL EXAM: VITALS: Vitals are noted on the nurse's note and reviewed by myself. Vital signs stable. GENERAL: 54-year-old female, in no acute distress, nondiaphoretic, well- developed well-nourished. SKIN: Warmth with slight erythema and edema noted to the left anterior patella, suprapatellar, and left lateral patella. HEART: Regular rate and rhythm without murmurs gallops or rubs. LUNGS: Clear to auscultation bilaterally without wheezes, rales or rhonchi. No retractions or accessory muscle use. ABDOMEN: Positive bowel sounds x 4. Soft, nontender, without masses or organomegaly. Bustamante sign negative. No guarding or rebound tenderness. MUSCULOSKELETAL: Limited ROM left knee, secondary to pain, and edema. Tenderness to palpation throughout the joint. No tenderness to palpation popliteal fossa. Distal extremity sensation intact to dull and sharp. DP pulse intact. No TTP lumbar paraspinous, spinous process. Full ROM, low back. NEURO: Patient was alert and oriented to person place and time. No focal neurological deficits. DIFFERENTIAL DIAGNOSIS: Musculoskeletal, disc herniation, fracture, metastatic disease, cord compression, discitis, sciatica, cauda equina, infection, aortic disease, renal colic, gastrointestinal, septic arthritis, as well as other pathologies. ED COURSE AND MEDICAL DECISION MAKING: MEDICATIONS GIVEN: 1 L NSS bolus, 1 g IV acetaminophen, 15 mg IV Toradol, weight-based vancomycin dosing. MONITOR: Continuous teletypesetter monitor: Order was placed for continuous teletypesetter monitor. Patient was placed on the teletypesetter monitor and continuous pulse ox. Patient was noted to be in normal sinus rhythm at an initial rate of 111 bpm per my interpretation. INTERPRETATION OF LABS: I interpreted the labs with full lab results as below in the lab section of this note. Pertinent lab results discussed in the MDM section below. INTERPRETATION OF IMAGING: Imaging studies were interpreted by myself and read by radiology as per the imaging section of this note. ESCALATION OF CARE CONSIDERED: CONSULTATIONS: Dr. Sotelo, orthopedics. PROCEDURES: Joint aspiration performed, using sterile procedure. 30 cc of cloudy aspirate, obtained, from the suprapatellar region. Patient tolerated procedure well. MDM SUMMARY: The patient is a pleasant, 54-year-old female who arrives to the emergency department for evaluation of the above-stated complaint. Saline lock was established, lab work was obtained. CBC shows slight leukocytosis 12.19, no anemia. ESR 72. CMP shows elevated glucose 247, lactate 1.5, CRP 14.63, procalcitonin 0.05. Urinalysis 3+ glucose, no concerning signs of infection. X-ray imaging of the left knee shows a joint effusion per my interpretation, with no acute fracture or bony abnormality. CT imaging of the, abdomen and pelvis with lumbar spine CT imaging performed due to patient history, and report of low back pain which per my interpretation shows degenerative changes of the lumbar spine, however no acute findings in the abdomen. I do believe the patient has a septic arthritis. I spoke with Dr. Sotelo from orthopedics who recommend joint aspiration. Joint aspiration performed as above. Synovial fluid was evaluated, showing over 79,000 white blood cells. Patient was started on IV vancomycin, weight-based dosing. She was admitted to the [facility] hospitalist group for further patient workup and care. Please refer to Dr. Susan Navarro's documentation for further patient treatment. DIAGNOSIS: Septic arthritis The chart was completed utilizing [email or web address] voice recognition software. Grammatical errors, random word insertions, pronoun errors, and incomplete sentences are an occasional consequence of this system due to software limitations, ambient noise, and hardware issues. Any formal questions or concerns about the content, text, or information contained within the body of this dictation should be directly addressed to the provider for clarification. Past Med/Surg History Problem List (Updated 01/13/25 @ 00:20 by AR Khan) Septic arthritis (Acute) Effusion, left knee LBBB (left bundle branch block) Septic arthritis of knee, left Diabetes (Chronic) Hx of tubal ligation (Chronic) Abdominal pain (Acute) Epigastric abdominal pain (Acute) UTI (urinary tract infection) (Acute) Medical History Encounter for pre-operative examination Type 2 diabetes mellitus Psoriatic arthritis Badillo's palsy HTN (hypertension) Surgical History H/O left knee surgery S/P lumbar fusion Approximately 2020 History of hysterectomy History of cholecystectomy Family History Other Arthritis Social History Smoking Status: Former smoker Hx Alcohol Use: No Hx Substance Use: No Preferred Language: Israeli Communication Ability: Effective Drug And Alcohol Counselor Required: No Beliefs That Will Affect Care: None Current Living Situation: Spouse Current Living Situation Comment: , daughter, son; house - accessible in front, bedroom is upstairs Feels Safe at Home: Yes Assistive Devices: None Allergies Allergies Allergy/AdvReac Type Severity Reaction Status Date / Time morphine Allergy Severe Severe Verified 12/25/23 14:52 stomach pain Sulfa (Sulfonamide Allergy Intermediate HIVES Verified 12/25/23 14:52 Antibiotics) Home Meds Home Medications Medication Instructions Recorded Confirmed lisinopril 20 mg tablet 20 mg PO QAM 09/21/23 01/07/25 metformin 500 mg tablet,extended 500 mg PO BID 09/21/23 01/07/25 release 24 hr empagliflozin 10 mg tablet 10 mg PO DAILY 12/25/23 01/07/25 (Jardiance) amlodipine 5 mg tablet 5 mg PO QAM 01/07/25 01/07/25 diclofenac sodium 75 mg 75 mg PO BID PRN Pain 01/07/25 01/07/25 tablet,delayed release insulin glargine 100 unit/mL (3 40 unit subcut HS 01/07/25 01/07/25 mL) subcutaneous pen (Lantus Solostar U-100 Insulin) Previous Rx's Medication Instructions Recorded aspirin 81 mg tablet,delayed 81 mg PO BID #10 tabs 01/12/25 release betamethasone, augmented 0.05 % 1 applic EXT BID PRN psorasis #15 01/12/25 topical cream grams cephalexin 500 mg capsule 1,000 mg (2 x 500 mg) PO QID 7 01/12/25 days #56 caps nystatin-triamcinolone 100,000 1 applic EXT BID PRN skin yeast 01/12/25 unit/g-0.1 % topical cream infection #30 grams oxycodone 5 mg tablet 5 mg PO Q4H PRN pain #10 tabs 01/12/25 Results & Data (ED) Vital Signs Vital Signs - 24 hr 01/07/25 20:14 01/07/25 23:00 01/07/25 23:10 Temperature 36.5 C Temperature Source Temporal Artery Scan Pulse Rate 111 H 79 Pulse Rate [Apical] 77 Pulse Rhythm Regular Pulse Strength Normal Respiratory Rate 18 17 Respiratory Effort / Characteristics Non-Labored Spontaneous Non-Labored Respiratory Depth Normal Normal Respiratory Pattern Regular Blood Pressure 108/71 Blood Pressure [Left Arm] 109/63 Blood Pressure Mean 83 Blood Pressure Mean [Left Arm] 78 Pulse Oximetry 96 95 Oxygen Delivery Method Room Air Room Air Sepsis Recent Fever Within 48 Hours No Sepsis New/Unexplained Change in Mental Status N/A Sepsis Action Taken by Nursing No Action Required Home Medications Current Medication List: was personally reviewed by me Laboratory Data Attestation: I reviewed the patient's lab results. 01/10/25 06:11 01/12/25 06:09 Lab Results 01/07/25 01/07/25 01/08/25 Range/Units 20:00 22:00 00:15 WBC 12.19 H (4.8-10.8) K/ul RBC 4.63 (4.20-5.40) M/uL Hgb 14.5 (12.0-16.0) g/dl Hct 41.1 (37.0-47.0) % MCV 88.8 (80.0-100.0) fL MCH 31.3 (25.0-34.0) pg MCHC 35.3 (32.0-36.0) g/dL RDW Std Deviation 39.4 (36.4-46.3) fL RDW Coeff of Shilpi 12.1 (11.5-14.5) % Plt Count 289 (130-400) K/uL MPV 9.3 L (9.4-12.4) fL Immature Gran % (Auto) 0.3 % Neut % (Auto) 67.3 % Lymph % (Auto) 20.8 % [place] % (Auto) 9.8 % Eos % (Auto) 1.6 % Baso % (Auto) 0.2 % Neut # (Auto) 8.20 H (1.40-6.50) K/uL Lymph # (Auto) 2.54 (1.20-3.40) K/uL [place] # (Auto) 1.19 H (0.11-0.59) K/uL Eos # (Auto) 0.19 (0.00-0.50) K/uL Baso # (Auto) 0.03 (0.00-0.20) K/uL Immature Gran # (Auto) 0.04 (0.01-0.20) K/uL ESR 72 H (0-30) mm/hr Sodium 135 L (136-145) mmol/L Potassium 4.2 (3.5-5.1) mmol/L Chloride 100 (98-107) mmol/L Carbon Dioxide 26 (21-32) mmol/L Anion Gap 9 (3-11) BUN 25 H (6-23) mg/dl Creatinine 0.84 (0.6-1.2) mg/dl Est Cr Clr Drug Dosing Not Reportable eGFR 83.04 BUN/Creatinine Ratio 29.8 H (10-20) Glucose 247 H (70-99(Fasting)) mg/dl Lactate 1.5 (0.4-2.0) mmol/L Calcium 9.2 (8.6-10.3) mg/dl Total Bilirubin 0.5 (0.2-1.0) mg/dl AST 13 (13-39) U/L ALT 18 (7-52) U/L Alkaline Phosphatase 58 (34-104) U/L C-Reactive Protein 14.63 H (0-0.5) mg/dl Total Protein 7.6 (6.0-8.3) gm/dl Albumin 3.7 (3.4-5.0) gm/dl Globulin 3.9 (2.5-4.0) gm/dl Albumin/Globulin Ratio 0.9 (0.9-2) Procalcitonin 0.05 (0-0.5) ng/ml Urine Color Yellow Urine Appearance Clear (Clear) Urine pH 6.5 (4.5-7.5) Ur Specific [facility] 1.037 H (1.000-1.030) Urine Protein Negative (Negative) Urine Glucose (UA) 3+ H (Negative) Urine Ketones Negative (Negative) Urine Blood Negative (Negative) Urine Nitrite Negative (Negative) Urine Bilirubin Negative (Negative) Urine Urobilinogen Negative (Negative) Ur Leukocyte Esterase Trace H (Negative) Urine WBC (Auto) 6-10 H (0-5) /hpf Urine RBC (Auto) 0-2 (0-2) /hpf U Hyaline Cast (Auto) 0-2 (0-2) /lpf U Epithel Cells (Auto) 0-2 (0-2) /hpf Urine Bacteria (Auto) None Seen (None Seen) Urine Comment Fluid Comment Synovial Source Left Knee Synovial Color Yellow Synovial Appearance Turbid Synovial WBC (Auto) 16144 H (0-200) /ul Synovial RBC (Auto) 62144 /uL Synovial Polynuclear % 90.8 % Synovial Mononuclear % 9.2 % Synovial Crystals Lyme Disease Screen Negative (Negative) Administered Medications Discontinued Medications Acetaminophen (Acetaminophen 500 Mg Tab) 1,000 mg PO Q8 [facility] Stop: 02/07/25 21:59 Last Admin: 01/12/25 05:57 Dose: 1,000 mg Documented By: Admin: 01/11/25 22:32 Dose: 1,000 mg Documented By: Admin: 01/11/25 14:02 Dose: 1,000 mg Documented By: Admin: 01/11/25 05:55 Dose: 1,000 mg Documented By: Admin: 01/10/25 21:13 Dose: 1,000 mg Documented By: Admin: 01/10/25 13:28 Dose: 1,000 mg Documented By: Admin: 01/10/25 04:42 Dose: 1,000 mg Documented By: Admin: 01/09/25 21:01 Dose: 1,000 mg Documented By: Admin: 01/09/25 13:36 Dose: 1,000 mg Documented By: mnk Admin: 01/09/25 05:01 Dose: 1,000 mg Documented By: elyse Admin: 01/08/25 22:52 Dose: 1,000 mg Documented By: SHARON Amlodipine Besylate (Amlodipine Besylate 5 Mg Tab) 5 mg PO QAM EMIGDIO Stop: 02/07/25 08:59 Last Admin: 01/12/25 08:33 Dose: 5 mg Documented By: ted Admin: 01/11/25 08:13 Dose: 5 mg Documented By: Admin: 01/10/25 08:19 Dose: 5 mg Documented By: Admin: 01/09/25 08:23 Dose: 5 mg Documented By: ted Admin: 01/08/25 08:35 Dose: Not Given Documented By: montse Aspirin (Aspirin 81 Mg Ectab) 81 mg PO BID EMIGDIO Stop: 02/08/25 08:59 Last Admin: 01/12/25 08:33 Dose: 81 mg Documented By: ted Admin: 01/11/25 20:25 Dose: 81 mg Documented By: Admin: 01/11/25 08:13 Dose: 81 mg Documented By: Admin: 01/10/25 20:16 Dose: 81 mg Documented By: Admin: 01/10/25 08:18 Dose: 81 mg Documented By: Admin: 01/09/25 20:18 Dose: 81 mg Documented By: Admin: 01/09/25 08:23 Dose: 81 mg Documented By: ted Betamethasone Dipropion Augmented (Betamethasone Dip Aug (Diprolene) 0.05% Cr 15 Gm Tube) 1 appln EXT BID EMIGDIO Stop: 02/08/25 12:29 Last Admin: 01/12/25 08:34 Dose: 1 appln Documented By: ted Admin: 01/11/25 20:25 Dose: 1 appln Documented By: Admin: 01/11/25 08:14 Dose: 1 appln Documented By: Admin: 01/10/25 20:16 Dose: 1 appln Documented By: Admin: 01/10/25 08:19 Dose: 1 appln Documented By: Admin: 01/09/25 20:18 Dose: 1 appln Documented By: Admin: 01/09/25 13:27 Dose: 1 appln Documented By: ted Bupivacaine HCl (Bupivacaine 0.5 % 5 Mg/1 Ml Mpf 30ml Vial) Confirm Administered Dose 30 ml .ROUTE .STK-MED ONE Stop: 01/08/25 12:24 Last Admin: 01/08/25 16:34 Dose: 15 ml Documented By: MARCI Calcium Carbonate (Calcium Carbonate 500 Mg Chewable Tab) 500 mg PO Q4H PRN PRN Reason: Indigestion Stop: 02/07/25 03:05 Last Admin: 01/08/25 05:14 Dose: 500 mg Documented By: ARETHA Calcium Carbonate (Calcium Carbonate 500 Mg Chewable Tab) Confirm Administered Dose 500 mg .ROUTE .STK-MED ONE Stop: 01/08/25 03:14 Last Admin: 01/08/25 05:13 Dose: Not Given Documented By: ARETHA Docusate Sodium (Docusate Sodium 100 Mg Cap) 100 mg PO BID [facility] Stop: 02/07/25 20:59 Last Admin: 01/12/25 08:48 Dose: 100 mg Documented By: ted Admin: 01/11/25 20:25 Dose: 100 mg Documented By: Admin: 01/11/25 08:17 Dose: 100 mg Documented By: Admin: 01/10/25 20:15 Dose: 100 mg Documented By: Admin: 01/10/25 08:23 Dose: 100 mg Documented By: Admin: 01/09/25 21:01 Dose: 100 mg Documented By: Admin: 01/09/25 08:21 Dose: 100 mg Documented By: ted Admin: 01/08/25 20:42 Dose: 100 mg Documented By: SHARON Enoxaparin Sodium (Enoxaparin Inj 40 Mg/0.4 Ml Syr) 40 mg SQ HS EMIGDIO Stop: 02/09/25 20:59 Last Admin: 01/11/25 20:25 Dose: 40 mg Documented By: Admin: 01/10/25 20:16 Dose: 40 mg Documented By: MAXIME Epinephrine HCl (Epinephrine Hcl Inj 10 Mg/10 Ml Vial) Confirm Administered Dose 1 mg .ROUTE .STK-MED ONE Stop: 01/08/25 14:30 Last Admin: 01/08/25 16:33 Dose: 4 mg Documented By: MARCI Fentanyl Citrate (Fentanyl Citrate Pf 100 Mcg/2 Ml Vial) 25 mcg IV Q5M PRN PRN Reason: PACU Use Only-Pain Stop: 01/08/25 21:19 Last Admin: 01/08/25 17:27 Dose: 25 mcg Documented By: Admin: 01/08/25 17:22 Dose: 25 mcg Documented By: Admin: 01/08/25 17:17 Dose: 25 mcg Documented By: Admin: 01/08/25 17:12 Dose: 25 mcg Documented By: BG Hydromorphone HCl (Hydromorphone Inj 0.5 Mg/0.5 Ml Syr) 0.5 mg IV Q3H PRN PRN Reason: Pain (6,7,8,9,10) Stop: 01/22/25 01:31 Last Admin: 01/08/25 10:47 Dose: 0.5 mg Documented By: montse Admin: 01/08/25 06:30 Dose: 0.5 mg Documented By: Admin: 01/08/25 02:10 Dose: 0.5 mg Documented By: JAMILA Sodium Chloride (Nss) 1,000 mls @ 999 mls/hr IV .Q1H1M ONE Stop: 01/07/25 22:38 Last Infusion: 01/07/25 23:08 Dose: Infused Documented By: Admin: 01/07/25 21:57 Dose: 999 mls/hr Documented By: ANT Acetaminophen (Ofirmev) 1,000 mg in 100 mls @ 400 mls/hr IV NOW STA Stop: 01/07/25 23:12 Last Infusion: 01/07/25 23:23 Dose: Infused Documented By: Admin: 01/07/25 23:08 Dose: 400 mls/hr Documented By: JAMILA Lactated Ringer's (Lr) 1,000 mls @ 80 mls/hr IV .[id number] [facility] Stop: 01/11/25 01:44 Last Infusion: 01/08/25 19:37 Dose: Infused Documented By: Admin: 01/08/25 18:46 Dose: Not Given Documented By: montse Infusion: 01/08/25 18:45 Dose: 0 mls/hr Documented By: montse Infusion: 01/08/25 18:42 Dose: 0 mls/hr Documented By: montse Admin: 01/08/25 06:30 Dose: 80 mls/hr Documented By: DARIEL Vancomycin HCl 2,500 mg/ (Sodium Chloride) 550 mls @ 180 mls/hr IV NOW ONE Stop: 01/08/25 04:44 Last Infusion: 01/08/25 05:39 Dose: Infused Documented By: Admin: 01/08/25 02:10 Dose: 180 mls/hr Documented By: JAMILA Vancomycin HCl 1,250 mg/ (Sodium Chloride) 275 mls @ 200 mls/hr IV Q12H EMIGDIO Stop: 01/15/25 11:59 Last Infusion: 01/09/25 06:44 Dose: Infused Documented By: elyse Admin: 01/09/25 04:45 Dose: 200 mls/hr Documented By: elyse Infusion: 01/08/25 18:44 Dose: Infused Documented By: montse Admin: 01/08/25 16:20 Dose: 200 mls/hr Documented By: [id number] Tranexamic Acid (Tranexamic Acid / 0.7% Nacl) 1,000 mg in 100 mls @ 600 mls/hr IV PREOP ONE Stop: 01/08/25 10:12 Last Infusion: 01/08/25 18:43 Dose: Infused Documented By: montse Admin: 01/08/25 15:00 Dose: 600 mls/hr Documented By: [id number] Sodium Chloride (Nss) 1,000 mls @ 100 mls/hr IV .Q10H EMIGDIO Stop: 01/09/25 06:00 Last Infusion: 01/09/25 11:23 Dose: Infused Documented By: ted Admin: 01/09/25 05:31 Dose: 100 mls/hr Documented By: elyse Infusion: 01/09/25 05:15 Dose: Infused Documented By: elyse Admin: 01/08/25 18:51 Dose: 100 mls/hr Documented By: montse Vancomycin HCl 1,250 mg/ (Sodium Chloride) 275 mls @ 200 mls/hr IV Q8H EMIGDIO Stop: 01/15/25 11:59 Last Admin: 01/12/25 12:53 Dose: 200 mls/hr Documented By: ted Infusion: 01/12/25 05:58 Dose: Infused Documented By: Admin: 01/12/25 04:23 Dose: 200 mls/hr Documented By: Infusion: 01/11/25 21:02 Dose: Infused Documented By: Admin: 01/11/25 19:20 Dose: 200 mls/hr Documented By: Infusion: 01/11/25 14:03 Dose: Infused Documented By: Admin: 01/11/25 12:37 Dose: 200 mls/hr Documented By: Infusion: 01/11/25 05:57 Dose: Infused Documented By: Admin: 01/11/25 04:27 Dose: 200 mls/hr Documented By: Infusion: 01/10/25 21:15 Dose: Infused Documented By: Admin: 01/10/25 19:48 Dose: 200 mls/hr Documented By: Infusion: 01/10/25 13:27 Dose: Infused Documented By: Admin: 01/10/25 12:02 Dose: 200 mls/hr Documented By: Infusion: 01/10/25 06:25 Dose: Infused Documented By: Admin: 01/10/25 04:57 Dose: 200 mls/hr Documented By: Infusion: 01/09/25 21:37 Dose: Infused Documented By: Admin: 01/09/25 20:14 Dose: 200 mls/hr Documented By: Infusion: 01/09/25 13:51 Dose: Infused Documented By: Admin: 01/09/25 12:25 Dose: 200 mls/hr Documented By: THAD Insulin Aspart (Insulin Aspart Per Unit Charge) 0 units SC Q6 EMIGDIO Stop: 02/07/25 01:44 Last Admin: 01/08/25 18:37 Dose: Not Given Documented By: montse Co-signed By: LIYA Admin: 01/08/25 13:07 Dose: Not Given Documented By: montse Admin: 01/08/25 06:22 Dose: Not Given Documented By: Admin: 01/08/25 02:22 Dose: Not Given Documented By: JAMILA Co-signed By: ARETHA Insulin Aspart (Insulin Aspart Per Unit Charge) 0 units SC ACHS EMIGDIO Stop: 02/07/25 20:59 Last Admin: 01/12/25 12:44 Dose: 4 units Documented By: ted Co-signed By: HUNTER Admin: 01/12/25 08:49 Dose: 6 units Documented By: ted Co-signed By: HUNTER Admin: 01/11/25 20:26 Dose: 1 units Documented By: GLORIA Co-signed By: MAXIME Admin: 01/11/25 17:32 Dose: 4 units Documented By: CFYossi Co-signed By: DIVINA Admin: 01/11/25 12:32 Dose: 3 units Documented By: CFD Co-signed By: JUSTIN Admin: 01/11/25 09:23 Dose: 6 units Documented By: GAYLAD Co-signed By: JUSTIN Admin: 01/10/25 21:14 Dose: 2 units Documented By: MAXIME Co-signed By: ALBERTINA Admin: 01/10/25 17:41 Dose: 7 units Documented By: KAMRON Co-signed By: CRISTHIAN Admin: 01/10/25 12:57 Dose: 5 units Documented By: KAMRON Co-signed By: DIVINA Admin: 01/10/25 09:00 Dose: 5 units Documented By: KAMRON Co-signed By: DIVINA Admin: 01/09/25 21:02 Dose: 1 units Documented By: MAXIME Co-signed By: TORRI Admin: 01/09/25 17:45 Dose: 7 units Documented By: ted Co-signed By: THAD Admin: 01/09/25 12:24 Dose: 7 units Documented By: THAD Co-signed By: LIYA Admin: 01/09/25 09:28 Dose: Not Given Documented By: Admin: 01/08/25 20:43 Dose: 1 units Documented By: SHARON Co-signed By: elyse Insulin Glargine (Lantus Per Unit Charge) 20 units SQ DAILY EMIGDIO Stop: 02/07/25 01:59 Last Admin: 01/08/25 08:34 Dose: Not Given Documented By: montse Admin: 01/08/25 02:27 Dose: 20 units Documented By: JAMILA Co-signed By: ARETHA Insulin Glargine (Lantus Per Unit Charge) 20 units SQ HS EMIGDIO Stop: 02/07/25 20:59 Last Admin: 01/11/25 20:27 Dose: 20 units Documented By: GLORIA Co-signed By: MAXIME Admin: 01/10/25 21:14 Dose: 20 units Documented By: MAXIME Co-signed By: ALBERTINA Admin: 01/09/25 21:02 Dose: 20 units Documented By: MAXIME Co-signed By: TORRI Admin: 01/08/25 20:43 Dose: 20 units Documented By: SHARON Co-signed By: elyse Ioversol (Optiray 320 100ml) 93 ml IV ONCE ONE Stop: 01/07/25 22:43 Last Admin: 01/07/25 22:43 Dose: 93 ml Documented By: TC Ketorolac Tromethamine (Ketorolac Tromethamine 15 Mg/Ml Vial) 15 mg IV NOW ONE Stop: 01/07/25 22:59 Last Admin: 01/07/25 23:07 Dose: 15 mg Documented By: JAMILA Lidocaine/Epinephrine (Lidocaine 1%/Epinephrine 1:100,000 50 Ml Vial) Confirm Administered Dose 1 ml .ROUTE .STK-MED ONE Stop: 01/08/25 12:24 Last Admin: 01/08/25 16:36 Dose: 15 ml Documented By: MARCI Lisinopril (Lisinopril 20 Mg Tab) 20 mg PO QAM EMIGDIO Stop: 02/07/25 08:59 Last Admin: 01/12/25 08:34 Dose: 20 mg Documented By: ted Admin: 01/11/25 08:13 Dose: 20 mg Documented By: Admin: 01/10/25 08:21 Dose: 20 mg Documented By: Admin: 01/09/25 08:23 Dose: 20 mg Documented By: ted Admin: 01/08/25 08:35 Dose: Not Given Documented By: montse Nystatin/Triamcinolone Acetonide (Nystatin/Triamcin Cr 15 Gm Tube) 1 appln EXT BID EMIGDIO Stop: 02/08/25 20:59 Last Admin: 01/12/25 08:34 Dose: 1 appln Documented By: ted Admin: 01/11/25 20:24 Dose: 1 appln Documented By: Admin: 01/11/25 08:14 Dose: 1 appln Documented By: Admin: 01/10/25 20:16 Dose: 1 appln Documented By: Admin: 01/10/25 08:20 Dose: 1 appln Documented By: Admin: 01/09/25 20:18 Dose: 1 appln Documented By: MAXIME Oxycodone HCl (Oxycodone Hcl Ir 5 Mg Tab (Immediate Release)) 5 - 10 mg PO Q4H PRN PRN Reason: Pain or Pre PT Stop: 01/22/25 18:05 Last Admin: 01/12/25 12:43 Dose: 5 mg Documented By: ted Admin: 01/11/25 22:33 Dose: 10 mg Documented By: Admin: 01/10/25 22:03 Dose: 10 mg Documented By: Admin: 01/09/25 23:24 Dose: 10 mg Documented By: Admin: 01/09/25 16:21 Dose: 5 mg Documented By: ted Admin: 01/09/25 08:26 Dose: 10 mg Documented By: ted Admin: 01/09/25 00:43 Dose: 10 mg Documented By: elyse Admin: 01/08/25 20:42 Dose: 5 mg Documented By: SHARON Polyethylene Glycol (Polyethylene (Miralax) 17 Gm Pack) 17 gm PO DAILY PRN PRN Reason: Constipation Stop: 02/07/25 02:04 Last Admin: 01/10/25 20:15 Dose: 17 gm Documented By: Admin: 01/09/25 15:58 Dose: 17 gm Documented By: THAD Tranexamic Acid (Tranexamic Acid / 0.7% Nacl 1000mg/100ml Bag) Confirm Administered Dose 1,000 mg IV .STK-MED ONE Stop: 01/08/25 12:27 Last Admin: 01/08/25 15:33 Dose: Not Given Documented By: SUSU Imaging Data Attestation: I personally reviewed and interpreted this imaging study as follows: Radiologist's Impression: Abdomen/Pelvis CT 01/07/25 21:32 Exam(s): CT ABDOMEN + PELVIS With Contrast IV Amt: 93ml opti 320 EXAM: CT Abdomen and Pelvis With Intravenous Contrast CLINICAL HISTORY: Reason for exam: RLQ pain. TECHNIQUE: Axial computed tomography images of the abdomen and pelvis with intravenous contrast. CTDI is 27.03 mGy and DLP is 1616.41 mGy-cm. Automated exposure control was utilized for the study. A dose lowering technique was utilized adhering to the principles of ALARA. CONTRAST: Patient received 93ml opti 320 of IV contrast COMPARISON: 09/26/2017 postop changes prior cholecystectomy FINDINGS: Lung bases: Unremarkable. No mass. No consolidation. ABDOMEN: Liver: Hepatomegaly. Gallbladder and bile ducts: Unremarkable. No calcified stones. No ductal dilation. Pancreas: Unremarkable. No mass. No ductal dilation. Spleen: Unremarkable. No splenomegaly. Adrenals: Unremarkable. No mass. Kidneys and ureters: Unremarkable. No solid mass. No hydronephrosis. Stomach and bowel: Moderate amount of stool within the colon. No obstruction. No mucosal thickening. PELVIS: Appendix: Normal-appearing appendix with its tip directed towards the right hemipelvis. Bladder: Unremarkable. No mass. Reproductive: Uterus is surgically absent. ABDOMEN and PELVIS: Intraperitoneal space: Unremarkable. No free air. No significant fluid collection. Bones/joints: No acute fracture. No dislocation. Soft tissues: Unremarkable. Vasculature: Unremarkable. No abdominal aortic aneurysm. Lymph nodes: Unremarkable. No enlarged lymph nodes. IMPRESSION: No acute findings in the abdomen or pelvis. Moderate amount of stool within the colon Normal-appearing appendix Gallbladder and uterus are both surgically absent Electronically signed by: Ismael Hernandez MD 01/07/25 23:11 PM Knee X-Ray 01/07/25 21:32 Exam(s): XR LEFT KNEE, 3 views EXAM: XR Left Knee, 3 Views CLINICAL HISTORY: Reason for exam: pain. TECHNIQUE: Three views of the left knee. COMPARISON: No relevant prior studies available. FINDINGS: Bones/joints: Small left knee effusion. No acute fracture. No dislocation. Soft tissues: Unremarkable. IMPRESSION: No acute findings in the left knee. Electronically signed by: Ismael Hernandez MD 01/07/25 23:[address] 01/07/25 21:32 Exam(s): CT L SPINE With Contrast IV Amt: 93ml opti 320 EXAM: CT Lumbar Spine With Intravenous Contrast CLINICAL HISTORY: Reason for exam: radicular pain. TECHNIQUE: Axial computed tomography images of the lumbar spine with intravenous contrast. CTDI is 27.03 mGy and DLP is 1616.41 mGy-cm. Automated exposure control was utilized for the study. A dose lowering technique was utilized adhering to the principles of ALARA. CONTRAST: Patient received 93ml opti 320 of IV contrast COMPARISON: No relevant prior studies available. FINDINGS: Vertebrae: Unremarkable. No acute fracture. Discs/spinal canal/neural foramina: Facet and ligamentous hypertrophic changes with a superimposed broad-based posterior disc bulge at L4-L5 results in mild bilateral foraminal narrowing. Soft tissues: Unremarkable. IMPRESSION: Normal lumbar spine CT. L4-5 degenerative changes as above Electronically signed by: Ismael Hernandez MD 01/07/25 23:26 PM Discharge Plan Visit Data Chief Complaint: Knee Injury/Pain Stated Complaint: KNEE/BACK PAIN, CHILLS, PAIN ED Provider: Reji Bradley ED Midlevel Provider: Ariadna Bautista Discharge Problem: Septic arthritis Patient Disposition: Admitted As Inpatient Condition: Fair Discharge Instructions Interventions: ED Discharge Assessment Last Done: 01/08/25 05:57
[2025-01-07] MEDS: SODIUM CHLORIDE 0.9% 1,000 ML IV ONE (21:57)
[2025-01-07 22:13] LABS: Hematocrit (blood only) 41.1 % (37.0-47.0); Hemoglobin 14.5 g/dl (12.0-16.0); Immature Granulocytes # (auto) 0.04 K/uL (0.01-0.20); Immature Granulocytes % (auto) 0.3 %; Mean Corpuscular Hemoglobin 31.3 pg (25.0-34.0); Mean Corpuscular Volume 88.8 fL (80.0-100.0); Platelet Count 289 K/uL (130-400); RDW Standard Deviation 39.4 fL (36.4-46.3); Red Blood Count 4.63 M/uL (4.20-5.40); White Blood Count 12.19 K/ul (4.8-10.8)
[2025-01-07 22:14] LABS: Appearance Urine Clear (Clear); Bacteria Urine Automated None Seen (None Seen); Cast Urine Automated 0-2 /lpf (0-2); Epithelial Cell Urine Auto 0-2 /hpf (0-2); Glucose Urine UA 3+ (Negative); RBC Urine Automated 0-2 /hpf (0-2)
[2025-01-07 22:32] LABS: Alanine Aminotransferase 18 U/L (7-52); Albumin Globulin Ratio 0.9 (0.9-2); Alkaline Phosphatase 58 U/L (34-104); Anion Gap 9 (3-11); Bilirubin,Total 0.5 mg/dl (0.2-1.0); Blood Urea Nitrogen 25 mg/dl (6-23); Calcium 9.2 mg/dl (8.6-10.3); Carbon Dioxide 26 mmol/L (21-32); Chloride 100 mmol/L (98-107); Globulin 3.9 gm/dl (2.5-4.0); Glucose 247 mg/dl (70-99(Fasting)); Potassium 4.2 mmol/L (3.5-5.1); Sodium 135 mmol/L (136-145); Total Protein 7.6 gm/dl (6.0-8.3)
[2025-01-07 22:38] LABS: Procalcitonin 0.05 ng/ml (0-0.5)
[2025-01-07] MEDS: OPTIRAY 320 100ml IV ONE (22:43)
[2025-01-07 23:03] LABS: Lyme Screen Rflx Confirmation Negative (Negative)
[2025-01-07] MEDS: KETOROLAC TROMETHAMINE 15 MG/ML VIAL IV ONE (23:07)
[2025-01-07] MEDS: ACETAMINOPHEN 1,000 MG/100 ML VIAL IV STA (23:08)
--- NOTE | 2025-01-07 23:10 | XRay Report ---
Exam(s): XR LEFT KNEE, 3 views EXAM: XR Left Knee, 3 Views CLINICAL HISTORY: Reason for exam: pain. TECHNIQUE: Three views of the left knee. COMPARISON: No relevant prior studies available. FINDINGS: Bones/joints: Small left knee effusion. No acute fracture. No dislocation. Soft tissues: Unremarkable. IMPRESSION: No acute findings in the left knee. Electronically signed by: Ismael Hernandez MD 01/07/25 23:09 PM
--- NOTE | 2025-01-07 23:12 | CT Scan Report ---
Exam(s): CT ABDOMEN + PELVIS With Contrast IV Amt: 93ml opti 320 EXAM: CT Abdomen and Pelvis With Intravenous Contrast CLINICAL HISTORY: Reason for exam: RLQ pain. TECHNIQUE: Axial computed tomography images of the abdomen and pelvis with intravenous contrast. CTDI is 27.03 mGy and DLP is 1616.41 mGy-cm. Automated exposure control was utilized for the study. A dose lowering technique was utilized adhering to the principles of ALARA. CONTRAST: Patient received 93ml opti 320 of IV contrast COMPARISON: 09/26/2017 postop changes prior cholecystectomy FINDINGS: Lung bases: Unremarkable. No mass. No consolidation. ABDOMEN: Liver: Hepatomegaly. Gallbladder and bile ducts: Unremarkable. No calcified stones. No ductal dilation. Pancreas: Unremarkable. No mass. No ductal dilation. Spleen: Unremarkable. No splenomegaly. Adrenals: Unremarkable. No mass. Kidneys and ureters: Unremarkable. No solid mass. No hydronephrosis. Stomach and bowel: Moderate amount of stool within the colon. No obstruction. No mucosal thickening. PELVIS: Appendix: Normal-appearing appendix with its tip directed towards the right hemipelvis. Bladder: Unremarkable. No mass. Reproductive: Uterus is surgically absent. ABDOMEN and PELVIS: Intraperitoneal space: Unremarkable. No free air. No significant fluid collection. Bones/joints: No acute fracture. No dislocation. Soft tissues: Unremarkable. Vasculature: Unremarkable. No abdominal aortic aneurysm. Lymph nodes: Unremarkable. No enlarged lymph nodes. IMPRESSION: No acute findings in the abdomen or pelvis. Moderate amount of stool within the colon Normal-appearing appendix Gallbladder and uterus are both surgically absent Electronically signed by: Ismael Hernandez MD 01/07/25 23:11 PM
--- NOTE | 2025-01-07 23:27 | CT Scan Report ---
Exam(s): CT L SPINE With Contrast IV Amt: 93ml opti 320 EXAM: CT Lumbar Spine With Intravenous Contrast CLINICAL HISTORY: Reason for exam: radicular pain. TECHNIQUE: Axial computed tomography images of the lumbar spine with intravenous contrast. CTDI is 27.03 mGy and DLP is 1616.41 mGy-cm. Automated exposure control was utilized for the study. A dose lowering technique was utilized adhering to the principles of ALARA. CONTRAST: Patient received 93ml opti 320 of IV contrast COMPARISON: No relevant prior studies available. FINDINGS: Vertebrae: Unremarkable. No acute fracture. Discs/spinal canal/neural foramina: Facet and ligamentous hypertrophic changes with a superimposed broad-based posterior disc bulge at L4-L5 results in mild bilateral foraminal narrowing. Soft tissues: Unremarkable. IMPRESSION: Normal lumbar spine CT. L4-5 degenerative changes as above Electronically signed by: Ismael Hernandez MD 01/07/25 23:26 PM
--- NOTE | 2025-01-08 01:06 | History & Physical Report ---
Date of Service January 08, 2025 Assessment & Plan (1) Septic arthritis of knee, left: (2) Type 2 diabetes mellitus: Plan 55-year-old female PMHx psoriatic arthritis, HTN, DM, and Badillo's palsy presenting for L knee pain and swelling x 1 week. ED evaluation concerning for elevated ESR and CRP (72 and 14.63 respectively) with L knee joint effusion. Synovial fluid analysis with WBC > 50k. Will be admitted for septic arthritis, with ortho consult placed. #Septic Arthritis, L knee History of psoriatic arthritis/HLA-B27 positive/inflammatory joint disease, follows with rheumatology most recent visit being 12/25/2023. - CBC with leukocytosis 12.19, stable H&H; lactate 1.5; ESR 72; CRP 14.63 - CBC, BMP am - Synovial fluid analysis WBC 79,600 - R knee XR with small joint effusion - NPO - IVF LR @ 80 mL/hr - Acetaminophen prn pain/fever, Dilaudid prn pain - Vancomycin IV - continue - PT/OT ordered - appreciate input + recs - Ortho consulted - appreciate input + recs #T2DM H/o DMT2; at home regimen Jardiance, insulin glargine 40U HS, metformin. - Glucose on admission 247 most recent A1C 12/2023 @ 9.5% - Pending repeat - Hold home meds - SSI with target BSG range 110-140mg/dL, CF 30, carb ratio 10 - BSG ACHS - Adjust regimen as needed #HTN- Amlodipine, lisinopril - continue Dispo: Admit, med/sx VTE Prophylaxis: SCDs - defer chemical VTE at time of admission since recent joint aspiration This document was dictated utilizing MYTRND. Please excuse any grammatical errors that may be secondary to use of this software. Admission and Anticipated Discharge Date Admission Date: 01/08/2025 History of Present Illness Chief Complaint: L knee pain Primary Care Provider: Ana Kaba MD 55-year-old female PMHx psoriatic arthritis, HTN, DM, and Badillo's palsy presenting for L knee pain and swelling x 1 week. History of prior meniscus repair on L knee around 10 years ago. Reports that she has a history of psoriatic arthritis and often finds herself scratching open areas on her legs when they become itchy. [place] so she is concerned that when she scratched an area open that his led to her knee involvement. 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 States that the swelling has been coming and going but is at its worst the day of arrival. She was having difficulty ambulating because of it. At its worse, the pain is a 8/10 and described as a constant pain with occasional worsening sharp stabs. Currently her pain is a 4-5/10 on the pain scale. She denies fever but has had chills for the past 3 days. Denies trauma to the leg. Overall denies chest pain, SOB, palpitations, abdominal pain, N/V/D/C, numbness/tingling, URI symptoms, LUTS, weakness, or syncope. ED evaluation reveals CBC with leukocytosis 12.19, stable H&H; ESR 72; CMP sodium 135, BUN 25, ratio 29.8, glucose 247; lactate 1.5; CRP 14.63; procalcitonin 0.05; UA with glucose, no infection; synovial fluid analysis pending; Lyme negative; CTAP no acute findings, moderate stool in the colon, normal-appearing appendix, GB and uterus surgically absent; R knee XR small L knee effusion, no acute findings; lumbar spine CT normal, with L4-5 degenerative changes.; Provided with 1L NSS, ketorolac 15 mg IV, and acetaminophen 1 g IV in ED. Please see Dr. Navarro's attestation for adjustments/additions to treatment plan. Allergies Allergy/AdvReac Type Severity Reaction Status Date / Time morphine Allergy Severe Severe Verified 12/25/23 14:52 stomach pain Sulfa (Sulfonamide Allergy Intermediate HIVES Verified 12/25/23 14:52 Antibiotics) Home Medications Medication Instructions Recorded Confirmed Type lisinopril 20 mg tablet 20 mg PO QAM 09/21/23 01/07/25 History metformin 500 mg tablet,extended 500 mg PO BID 09/21/23 01/07/25 History release 24 hr empagliflozin 10 mg tablet 10 mg PO DAILY 12/25/23 01/07/25 History (Jardiance) amlodipine 5 mg tablet 5 mg PO QAM 01/07/25 01/07/25 History diclofenac sodium 75 mg 75 mg PO BID PRN Pain 08/20/25 08/20/25 History tablet,delayed release insulin glargine 100 unit/mL (3 40 unit subcut HS 01/07/25 01/07/25 History mL) subcutaneous pen (Lantus Solostar U-100 Insulin) Past Med/Surg History Problem List (Updated 01/08/25 @ 01:52 by Vaishali Sheikh PA-C) Type 2 diabetes mellitus Septic arthritis of knee, left Psoriatic arthritis Diabetes (Chronic) Hx of tubal ligation (Chronic) Abdominal pain (Acute) Epigastric abdominal pain (Acute) UTI (urinary tract infection) (Acute) Medical History Badillo's palsy HTN (hypertension) Surgical History H/O left knee surgery S/P lumbar fusion Approximately 2020 History of hysterectomy History of cholecystectomy Family History Other Arthritis Social History Smoking Status: Never smoker Hx Alcohol Use: Yes (Rare) Preferred Language: Khmer Feels Safe at Home: Yes Review of Systems 2 Review of Systems: All systems reviewed & are unremarkable except as noted in Subjective Physical Exam 2 Physical Exam: General: No acute distress Skin: Warm and dry; psoriatic changes to BLE, some excoriations Head: Normocephalic, atraumatic Eyes: PERRL, conjunctivae clear, sclera non-icteric ENT: External ear and ear canal without swelling; nose atraumatic; good dentition, tongue normal appearance, pharynx normal Neck: Supple, no LAD Cardio: RRR, no M/G/R, S1 and S2 normal Resp: No respiratory distress, Lungs CTA in all lobes bilaterally, no wheezes, rales, or rhonchi Abdomen: Soft, symmetric, nontender; No masses or hepatosplenomegaly; Bowel sounds normoactive MSK: L knee edematous and warm to palpation, R knee WNL (see images); pulses palpable and equal; no edema. Neuro: Awake, alert; Sensation intact bilaterally; CN grossly intact Psych: Appropriate mood and affect; good judgement and insight. Results & Data Results & Data Vital Signs (Past 12 Hours) Vital Signs Temp Pulse Pulse Resp BP BP Pulse Ox 01/07/25 23:10 79 01/07/25 23:00 77 17 109/63 95 01/07/25 20:14 36.5 C 111 H 18 108/71 96 O2 Del Method 01/07/25 23:10 01/07/25 23:00 Room Air 01/07/25 20:14 Room Air Laboratory Results 01/08/25 00:15 Gram Stain - Pending Knee,Left Aerobic and Anaerobic Culture - Pending 01/07/25 23:10 Aerobic Blood Culture - Pending Blood Anaerobic Blood Culture - Pending 01/07/25 23:10 Aerobic Blood Culture - Pending Blood Anaerobic Blood Culture - Pending 01/08/25 01/07/25 01/07/25 00:15 22:00 20:00 WBC 12.19 H RBC 4.63 Hgb 14.5 Hct 41.1 MCV 88.8 MCH 31.3 MCHC 35.3 RDW Std Deviation 39.4 RDW Coeff of Shilpi 12.1 Plt Count 289 MPV 9.3 L Immature Gran % (Auto) 0.3 Neut % (Auto) 67.3 Lymph % (Auto) 20.8 [place] % (Auto) 9.8 Eos % (Auto) 1.6 Baso % (Auto) 0.2 Neut # (Auto) 8.20 H Lymph # (Auto) 2.54 [place] # (Auto) 1.19 H Eos # (Auto) 0.19 Baso # (Auto) 0.03 Immature Gran # (Auto) 0.04 ESR 72 H Sodium 135 L Potassium 4.2 Chloride 100 Carbon Dioxide 26 Anion Gap 9 BUN 25 H Creatinine 0.84 Est Cr Clr Drug Dosing Not Reportable eGFR 83.04 BUN/Creatinine Ratio 29.8 H Glucose 247 H Lactate 1.5 Calcium 9.2 Total Bilirubin 0.5 AST 13 ALT 18 Alkaline Phosphatase 58 C-Reactive Protein 14.63 H Total Protein 7.6 Albumin 3.7 Globulin 3.9 Albumin/Globulin Ratio 0.9 Procalcitonin 0.05 Urine Color Yellow Urine Appearance Clear Urine pH 6.5 Ur Specific [place] 1.037 H Urine Protein Negative Urine Glucose (UA) 3+ H Urine Ketones Negative Urine Blood Negative Urine Nitrite Negative Urine Bilirubin Negative Urine Urobilinogen Negative Ur Leukocyte Esterase Trace H Urine WBC (Auto) 6-10 H Urine RBC (Auto) 0-2 U Hyaline Cast (Auto) 0-2 U Epithel Cells (Auto) 0-2 Urine Bacteria (Auto) None Seen Urine Comment Fluid Comment Lyme Disease Screen Negative Diagnostic Findings Abdomen/Pelvis CT 01/07/25 21:32 Exam(s): CT ABDOMEN + PELVIS With Contrast IV Amt: 93ml opti 320 EXAM: CT Abdomen and Pelvis With Intravenous Contrast CLINICAL HISTORY: Reason for exam: RLQ pain. TECHNIQUE: Axial computed tomography images of the abdomen and pelvis with intravenous contrast. CTDI is 27.03 mGy and DLP is 1616.41 mGy-cm. Automated exposure control was utilized for the study. A dose lowering technique was utilized adhering to the principles of ALARA. CONTRAST: Patient received 93ml opti 320 of IV contrast COMPARISON: 09/26/2017 postop changes prior cholecystectomy FINDINGS: Lung bases: Unremarkable. No mass. No consolidation. ABDOMEN: Liver: Hepatomegaly. Gallbladder and bile ducts: Unremarkable. No calcified stones. No ductal dilation. Pancreas: Unremarkable. No mass. No ductal dilation. Spleen: Unremarkable. No splenomegaly. Adrenals: Unremarkable. No mass. Kidneys and ureters: Unremarkable. No solid mass. No hydronephrosis. Stomach and bowel: Moderate amount of stool within the colon. No obstruction. No mucosal thickening. PELVIS: Appendix: Normal-appearing appendix with its tip directed towards the right hemipelvis. Bladder: Unremarkable. No mass. Reproductive: Uterus is surgically absent. ABDOMEN and PELVIS: Intraperitoneal space: Unremarkable. No free air. No significant fluid collection. Bones/joints: No acute fracture. No dislocation. Soft tissues: Unremarkable. Vasculature: Unremarkable. No abdominal aortic aneurysm. Lymph nodes: Unremarkable. No enlarged lymph nodes. IMPRESSION: No acute findings in the abdomen or pelvis. Moderate amount of stool within the colon Normal-appearing appendix Gallbladder and uterus are both surgically absent Electronically signed by: Ismael Hernandez MD 01/07/25 23:11 PM Knee X-Ray 01/07/25 21:32 Exam(s): XR LEFT KNEE, 3 views EXAM: XR Left Knee, 3 Views CLINICAL HISTORY: Reason for exam: pain. TECHNIQUE: Three views of the left knee. COMPARISON: No relevant prior studies available. FINDINGS: Bones/joints: Small left knee effusion. No acute fracture. No dislocation. Soft tissues: Unremarkable. IMPRESSION: No acute findings in the left knee. Electronically signed by: Ismael Hernandez MD 01/07/25 23:[address] 01/07/25 21:32 Exam(s): CT L SPINE With Contrast IV Amt: 93ml opti 320 EXAM: CT Lumbar Spine With Intravenous Contrast CLINICAL HISTORY: Reason for exam: radicular pain. TECHNIQUE: Axial computed tomography images of the lumbar spine with intravenous contrast. CTDI is 27.03 mGy and DLP is 1616.41 mGy-cm. Automated exposure control was utilized for the study. A dose lowering technique was utilized adhering to the principles of ALARA. CONTRAST: Patient received 93ml opti 320 of IV contrast COMPARISON: No relevant prior studies available. FINDINGS: Vertebrae: Unremarkable. No acute fracture. Discs/spinal canal/neural foramina: Facet and ligamentous hypertrophic changes with a superimposed broad-based posterior disc bulge at L4-L5 results in mild bilateral foraminal narrowing. Soft tissues: Unremarkable. IMPRESSION: Normal lumbar spine CT. L4-5 degenerative changes as above Electronically signed by: Ismael Hernandez MD 01/07/25 23:26 PM Medications Administered 1L NSS Ketorolac 50 mg IV Acetaminophen 1 g IV Code Status & VTE Plan Code Status Full PG Care Time/CCT Total # of Minutes Spent Total Time Spent with Patient: Total time spent is greater than 50% in coordination of care (as documented) at patient's floor/unit and/or counseling patient: Coding Level of Care Code 63529 INT INP/OBS CARE 3/75MIN Diagnoses Septic arthritis of knee, left M00.9 Type 2 diabetes mellitus E11.9
[2025-01-08 01:14] LABS: Color Synovial Fluid Yellow; Mononuclear WBC Synovial 9.2 %; Polynuclear WBC Synovial 90.8 %; RBC Synovial Fluid Auto 10000 /uL; Source Synovial Fluid Left Knee; WBC Synovial Fluid Auto 79600 /ul (0-200)
[2025-01-08] MEDS ORDERED: VANCOMYCIN HCL 2,750 MG in SODIUM CHLORIDE 0.9% 500 ML IV ONE (01:15)
[2025-01-08] MEDS ORDERED: VANCOMYCIN CONSULT ACTIVE PRN ×2 (01:15→01:41)
[2025-01-08] MEDS ORDERED: ACETAMINOPHEN 500 MG TAB PO PRN (01:31)
[2025-01-08] MEDS ORDERED: HYDROmorphone INJ 0.5 MG/0.5 ML SYR IV PRN (01:32)
[2025-01-08] MEDS ORDERED: GLUCOSE 10 TAB/TUBE PO PRN (01:35)
[2025-01-08] MEDS ORDERED: GLUCOSE 40% GEL 15 GM TUBE PO PRN (01:35)
[2025-01-08] MEDS ORDERED: GLUCAGON FOR INJ 1 MG VIAL SQ PRN (01:35)
[2025-01-08] MEDS ORDERED: DEXTROSE 50% 50 ML SYRINGE IV PRN (01:35)
[2025-01-08] MEDS ORDERED: CARBOHYDRATES FOR HYPOGLYCEMIA PO PRN (01:35)
[2025-01-08] MEDS ORDERED: MELATONIN 3 MG TAB PO PRN (02:05)
[2025-01-08] MEDS ORDERED: ONDANSETRON INJ 2 MG/ML 2 ML VIAL IV PRN ×2 (02:05→13:19)
[2025-01-08] MEDS: HYDROmorphone INJ 0.5 MG/0.5 ML SYR IV PRN (02:10)
[2025-01-08] MEDS: VANCOMYCIN HCL 2,500 MG in SODIUM CHLORIDE 0.9% 500 ML IV ONE (02:10)
[2025-01-08] MEDS: INSULIN ASPART PER UNIT CHARGE SC SCH ×2 (02:22→20:43)
[2025-01-08] MEDS: LANTUS PER UNIT CHARGE SQ SCH ×2 (02:27→20:43)
[2025-01-08] MEDS: CALCIUM CARBONATE 500 MG CHEWABLE TAB ONE (05:13)
[2025-01-08] MEDS: CALCIUM CARBONATE 500 MG CHEWABLE TAB PO PRN (05:14)
[2025-01-08] MEDS: LACTATED RINGER'S 1,000 ML IV SCH (06:30)
[2025-01-08 07:44] LABS: Hemoglobin A1C 7.7 % (4.5-5.6)
--- NOTE | 2025-01-08 08:45 | Pharmacy Report ---
Pharmacy PK ABX Note - Date of Service January 08, 2025 - Assessment and Plan Assessment 54 year old F with h/o of psoriatic arthritis and diabetes who presented with L knee pain and swelling x 1. ESR and CRP elevated. Small L knee effusion noted on Knee XR. Synovial fluid analysis showing WBC 79,000 with elevated neutrophil percentage. L knee culture and BC pending. Patient ordered empiric vancomycin IV for septic arthritis. Ortho consulted. Plan Vancomycin * Loading dose: 2500 mg IV x 1 * Maintenance dose: 1250 mg IV every 12 hours * Regimen is predicted to achieve target AUC/SANIYA of 400-600 mg/L.hr * est. steady state AUC/SANIYA = 546 * Vanc random level ordered for 01/09 @ 0800 Pharmacy will continue to follow and will adjust dose/frequency as necessary. Thank you.
--- NOTE | 2025-01-08 08:47 | Orthopedic Consultation ---
Date of Consultation January 08, 2025 Assessment & Plan (1) Septic arthritis of knee, left: IMPRESSION: Left knee swelling, concern for septic arthritis vs gout PLAN: Discussed options, tentatively plan for OR and arthroscopic I&D unless labs reveal gout/pseudogout NPO Will have sign consent as risks & benefits were discussed, LLE initialled WBAT Placed on the add-on list for later today. History of Present Illness Reason for Consultation: Left knee effusion, possible septic arthritis Requesting Physician: Yossi Sotelo MD Attending Physician: Bonita Ch MD History of Present Illness 55-year-old female PMHx psoriatic arthritis, HTN, DM, and Badillo's palsy presenting for L knee pain and swelling x 1 week, pain significantly worsened over the last couple of days. Evaluated in the ED with elevated ESR and CRP (72 and 14.63 respectively) with L knee joint effusion. Synovial fluid analysis with WBC > 50k. Admitted by Hospitalist service and I was consulted for further evaluation and treatment. Allergies Allergy/AdvReac Type Severity Reaction Status Date / Time morphine Allergy Severe Severe Verified 12/25/23 14:52 stomach pain Sulfa (Sulfonamide Allergy Intermediate HIVES Verified 12/25/23 14:52 Antibiotics) Home Medications Medication Instructions Recorded Confirmed Type lisinopril 20 mg tablet 20 mg PO QAM 09/21/23 01/07/25 History metformin 500 mg tablet,extended 500 mg PO BID 09/21/23 01/07/25 History release 24 hr empagliflozin 10 mg tablet 10 mg PO DAILY 12/25/23 01/07/25 History (Jardiance) amlodipine 5 mg tablet 5 mg PO QAM 01/07/25 01/07/25 History diclofenac sodium 75 mg 75 mg PO BID PRN Pain 01/07/25 01/07/25 History tablet,delayed release insulin glargine 100 unit/mL (3 40 unit subcut HS 01/07/25 01/07/25 History mL) subcutaneous pen (Lantus Solostar U-100 Insulin) Patient History Medical History (Updated 01/08/25 @ 08:36 by Len Sotelo MD) Psoriatic arthritis Badillo's palsy HTN (hypertension) Surgical History H/O left knee surgery S/P lumbar fusion Approximately 2020 History of hysterectomy History of cholecystectomy Family History Other Arthritis Social History Smoking Status: Former smoker Hx Alcohol Use: No Hx Substance Use: No Preferred Language: Romanian Communication Ability: Effective Business Office Associate Required: No Beliefs That Will Affect Care: None Current Living Situation: Spouse Current Living Situation Comment: , daughter, son; house - accessible in front, bedroom is upstairs Feels Safe at Home: Yes Safety Concerns: Feels Safe At This Time Review of Systems Review of Systems: fevers and chills Physical Exam Physical Exam: LLE: Sensation to light touch intact distally. Motor gastroc soleus, Tib ant, EHL intact & able to preform straight leg raise. 2+ DP pulse. ++ effusion. Warm skin over knee. No erythema. + medial joint line tenderness. - Nicolle's. Ligaments stable. Results & Data Vital Signs (Past 12 Hours) Vital Signs Temp Pulse Pulse Resp BP BP Pulse Ox 01/08/25 07:40 36.8 C 67 20 100/66 98 01/08/25 06:33 01/08/25 06:15 36.2 C L 72 18 107/70 94 01/08/25 05:57 82 18 113/68 98 01/08/25 02:30 36.4 C 01/08/25 02:29 82 17 113/68 98 01/07/25 23:10 79 01/07/25 23:00 77 17 109/63 95 O2 Del Method 01/08/25 07:40 Room Air 01/08/25 06:33 Room Air 01/08/25 06:15 Room Air 01/08/25 05:57 Room Air 01/08/25 02:30 01/08/25 02:29 01/07/25 23:10 01/07/25 23:00 Room Air Laboratory Results Laboratory Results WBC 12.19 K/ul (4.8-10.8) H 01/07/25 22:00 RBC 4.63 M/uL (4.20-5.40) 01/07/25 22:00 Hgb 14.5 g/dl (12.0-16.0) 01/07/25 22:00 Hct 41.1 % (37.0-47.0) 01/07/25 22:00 MCV 88.8 fL (80.0-100.0) 01/07/25 22:00 MCH 31.3 pg (25.0-34.0) 01/07/25 22:00 MCHC 35.3 g/dL (32.0-36.0) 01/07/25 22:00 RDW Std Deviation 39.4 fL (36.4-46.3) 01/07/25 22:00 RDW Coeff of Shilpi 12.1 % (11.5-14.5) 01/07/25 22:00 Plt Count 289 K/uL (130-400) 01/07/25 22:00 MPV 9.3 fL (9.4-12.4) L 01/07/25 22:00 Immature Gran % (Auto) 0.3 % 01/07/25 22:00 Neut % (Auto) 67.3 % 01/07/25 22:00 Lymph % (Auto) 20.8 % 01/07/25 22:00 [place] % (Auto) 9.8 % 01/07/25 22:00 Eos % (Auto) 1.6 % 01/07/25 22:00 Baso % (Auto) 0.2 % 01/07/25 22:00 Neut # (Auto) 8.20 K/uL (1.40-6.50) H 01/07/25 22:00 Lymph # (Auto) 2.54 K/uL (1.20-3.40) 01/07/25 22:00 [place] # (Auto) 1.19 K/uL (0.11-0.59) H 01/07/25 22:00 Eos # (Auto) 0.19 K/uL (0.00-0.50) 01/07/25 22:00 Baso # (Auto) 0.03 K/uL (0.00-0.20) 01/07/25 22:00 Immature Gran # (Auto) 0.04 K/uL (0.01-0.20) 01/07/25 22:00 ESR 72 mm/hr (0-30) H 01/07/25 20:00 Sodium 135 mmol/L (136-145) L 01/07/25 22:00 Potassium 4.2 mmol/L (3.5-5.1) 01/07/25 22:00 Chloride 100 mmol/L (98-107) 01/07/25 22:00 Carbon Dioxide 26 mmol/L (21-32) 01/07/25 22:00 Anion Gap 9 (3-11) 01/07/25 22:00 BUN 25 mg/dl (6-23) H 01/07/25 22:00 Creatinine 0.84 mg/dl (0.6-1.2) 01/07/25 22:00 Est Cr Clr Drug Dosing Not Reportable 01/07/25 22:00 eGFR 83.04 01/07/25 22:00 BUN/Creatinine Ratio 29.8 (10-20) H 01/07/25 22:00 Glucose 247 mg/dl (70-99(Fasting)) H 01/07/25 22:00 POC Glucose 114 mg/dl (70-99) H 01/08/25 06:17 Estimat Average Glucose 174 mg/dl 01/08/25 04:19 Hemoglobin A1c 7.7 % (4.5-5.6) H 01/08/25 04:19 Lactate 1.5 mmol/L (0.4-2.0) 01/07/25 22:00 Calcium 9.2 mg/dl (8.6-10.3) 01/07/25 22:00 Total Bilirubin 0.5 mg/dl (0.2-1.0) 01/07/25 22:00 AST 13 U/L (13-39) 01/07/25 22:00 ALT 18 U/L (7-52) 01/07/25 22:00 Alkaline Phosphatase 58 U/L (34-104) 01/07/25 22:00 C-Reactive Protein 14.63 mg/dl (0-0.5) H 01/07/25 22:00 Total Protein 7.6 gm/dl (6.0-8.3) 01/07/25 22:00 Albumin 3.7 gm/dl (3.4-5.0) 01/07/25 22:00 Globulin 3.9 gm/dl (2.5-4.0) 01/07/25 22:00 Albumin/Globulin Ratio 0.9 (0.9-2) 01/07/25 22:00 Procalcitonin 0.05 ng/ml (0-0.5) 01/07/25 22:00 Urine Color Yellow 01/07/25 22:00 Urine Appearance Clear (Clear) 01/07/25 22:00 Urine pH 6.5 (4.5-7.5) 01/07/25 22:00 Ur Specific [place] 1.037 (1.000-1.030) H 01/07/25 22:00 Urine Protein Negative (Negative) 01/07/25 22:00 Urine Glucose (UA) 3+ (Negative) H 01/07/25 22:00 Urine Ketones Negative (Negative) 01/07/25 22:00 Urine Blood Negative (Negative) 01/07/25 22:00 Urine Nitrite Negative (Negative) 01/07/25 22:00 Urine Bilirubin Negative (Negative) 01/07/25 22:00 Urine Urobilinogen Negative (Negative) 01/07/25 22:00 Ur Leukocyte Esterase Trace (Negative) H 01/07/25 22:00 Urine WBC (Auto) 6-10 /hpf (0-5) H 01/07/25 22:00 Urine RBC (Auto) 0-2 /hpf (0-2) 01/07/25 22:00 U Hyaline Cast (Auto) 0-2 /lpf (0-2) 01/07/25 22:00 U Epithel Cells (Auto) 0-2 /hpf (0-2) 01/07/25 22:00 Urine Bacteria (Auto) None Seen (None Seen) 01/07/25 22:00 Urine Comment 01/07/25 22:00 Fluid Comment 01/08/25 00:15 Synovial Source Left Knee 01/08/25 00:15 Synovial Color Yellow 01/08/25 00:15 Synovial Appearance Turbid 01/08/25 00:15 Synovial WBC (Auto) 59598 /ul (0-200) H 01/08/25 00:15 Synovial RBC (Auto) 11270 /uL 01/08/25 00:15 Synovial Polynuclear % 90.8 % 01/08/25 00:15 Synovial Mononuclear % 9.2 % 01/08/25 00:15 Lyme Disease Screen Negative (Negative) 01/07/25 22:00 Impressions Abdomen/Pelvis CT 01/07/25 21:32 Exam(s): CT ABDOMEN + PELVIS With Contrast IV Amt: 93ml opti 320 EXAM: CT Abdomen and Pelvis With Intravenous Contrast CLINICAL HISTORY: Reason for exam: RLQ pain. TECHNIQUE: Axial computed tomography images of the abdomen and pelvis with intravenous contrast. CTDI is 27.03 mGy and DLP is 1616.41 mGy-cm. Automated exposure control was utilized for the study. A dose lowering technique was utilized adhering to the principles of ALARA. CONTRAST: Patient received 93ml opti 320 of IV contrast COMPARISON: 09/26/2017 postop changes prior cholecystectomy FINDINGS: Lung bases: Unremarkable. No mass. No consolidation. ABDOMEN: Liver: Hepatomegaly. Gallbladder and bile ducts: Unremarkable. No calcified stones. No ductal dilation. Pancreas: Unremarkable. No mass. No ductal dilation. Spleen: Unremarkable. No splenomegaly. Adrenals: Unremarkable. No mass. Kidneys and ureters: Unremarkable. No solid mass. No hydronephrosis. Stomach and bowel: Moderate amount of stool within the colon. No obstruction. No mucosal thickening. PELVIS: Appendix: Normal-appearing appendix with its tip directed towards the right hemipelvis. Bladder: Unremarkable. No mass. Reproductive: Uterus is surgically absent. ABDOMEN and PELVIS: Intraperitoneal space: Unremarkable. No free air. No significant fluid collection. Bones/joints: No acute fracture. No dislocation. Soft tissues: Unremarkable. Vasculature: Unremarkable. No abdominal aortic aneurysm. Lymph nodes: Unremarkable. No enlarged lymph nodes. IMPRESSION: No acute findings in the abdomen or pelvis. Moderate amount of stool within the colon Normal-appearing appendix Gallbladder and uterus are both surgically absent Electronically signed by: Ismael Hernandez MD 01/07/25 23:11 PM Knee X-Ray 01/07/25 21:32 Exam(s): XR LEFT KNEE, 3 views EXAM: XR Left Knee, 3 Views CLINICAL HISTORY: Reason for exam: pain. TECHNIQUE: Three views of the left knee. COMPARISON: No relevant prior studies available. FINDINGS: Bones/joints: Small left knee effusion. No acute fracture. No dislocation. Soft tissues: Unremarkable. IMPRESSION: No acute findings in the left knee. Electronically signed by: Ismael Hernandez MD 01/07/25 23:[address] 01/07/25 21:32 Exam(s): CT L SPINE With Contrast IV Amt: 93ml opti 320 EXAM: CT Lumbar Spine With Intravenous Contrast CLINICAL HISTORY: Reason for exam: radicular pain. TECHNIQUE: Axial computed tomography images of the lumbar spine with intravenous contrast. CTDI is 27.03 mGy and DLP is 1616.41 mGy-cm. Automated exposure control was utilized for the study. A dose lowering technique was utilized adhering to the principles of ALARA. CONTRAST: Patient received 93ml opti 320 of IV contrast COMPARISON: No relevant prior studies available. FINDINGS: Vertebrae: Unremarkable. No acute fracture. Discs/spinal canal/neural foramina: Facet and ligamentous hypertrophic changes with a superimposed broad-based posterior disc bulge at L4-L5 results in mild bilateral foraminal narrowing. Soft tissues: Unremarkable. IMPRESSION: Normal lumbar spine CT. L4-5 degenerative changes as above Electronically signed by: Ismael Hernandez MD 01/07/25 23:26 PM
--- NOTE | 2025-01-08 09:59 | Hospitalist Progress Note ---
Date of Service January 08, 2025 Assessment & Plan (1) Septic arthritis of knee, left: (2) Type 2 diabetes mellitus: Plan 55-year-old female PMHx psoriatic arthritis, HTN, DM, and Badillo's palsy presenting for L knee pain and swelling x 1 week. ED evaluation concerning for elevated ESR and CRP (72 and 14.63 respectively) with L knee joint effusion. Synovial fluid analysis with WBC > 50k. Will be admitted for septic arthritis, with ortho consult placed. #Septic Arthritis, L knee History of psoriatic arthritis/HLA-B27 positive/inflammatory joint disease, follows with rheumatology most recent visit being 12/25/2023. Hx of meniscus repair ~ 10 years ago. R knee XR with small joint effusion Mild leukocytosis (12), CRP 14.63, ESR 72 Synovial fluid analysis WBC 79,600, crystal analysis without evidence of gout or psuedogout Continue vancomycin Ortho consulted - plan for OR today --> pt is medically optimized for surgery Keep NPO with maintenance IVF LR @ 80 mL/hr Pain control: Acetaminophen prn pain/fever, Dilaudid prn pain PT/OT AM CBC, BMP and CRP #T2DM H/o DMT2; at home regimen Jardiance, insulin glargine 40U HS, metformin - HELD A1c 7.7 Lantus 20u HS, SSI with target BSG range 110-140mg/dL, CF 30, carb ratio 10 #HTN- Amlodipine, lisinopril - continue Dispo: continued inpatient stay, OR today VTE Prophylaxis: SCDs - defer chemical VTE at time of admission since recent phylicia nt aspiration Admission and Anticipated Discharge Date Admission Date: January 08, 2025 Subjective Patient seen lying in bed reports worsening knee pain over the last ~ [address] Sotelo outpatient. Hx of meniscus repair about 10 years ago. Does report chills and sweats outpatient, no documented fevers normally does not need cane or walker Tele SR 60s Review of Systems Review of Systems: All systems reviewed & are unremarkable except as noted in Subjective Physical Exam Physical Exam: General: NAD, VS as above Resp: normal respiratory effort, lungs clear to auscultation CV: RRR, no murmur, Abd: normal bowel sounds, non tender, no hepatosplenomegaly Extremities: Moves all extremities, left knee swollen and warm Neuro: A&O x3, Results & Data Results & Data Vital Signs (Past 12 Hours) Vital Signs Temp Pulse Pulse Resp BP BP Pulse Ox 01/08/25 07:40 98.2 F 67 20 100/66 98 01/08/25 06:33 01/08/25 06:15 97.2 F L 72 18 107/70 94 01/08/25 05:57 82 18 113/68 98 01/08/25 02:30 97.6 F 01/08/25 02:29 82 17 113/68 98 01/07/25 23:10 79 01/07/25 23:00 77 17 109/63 95 O2 Del Method 01/08/25 07:40 Room Air 01/08/25 06:33 Room Air 01/08/25 06:15 Room Air 01/08/25 05:57 Room Air 01/08/25 02:30 01/08/25 02:29 01/07/25 23:10 01/07/25 23:00 Room Air Laboratory Results a1c reviewed PG Care Time/CCT Total # of Minutes Spent Total Time Spent with Patient: Total time spent is greater than 50% in coordination of care (as documented) at patient's floor/unit and/or counseling patient: Coding Level of Care Code None Diagnoses Septic arthritis of knee, left M00.9 Type 2 diabetes mellitus E11.9
--- NOTE | 2025-01-08 13:15 | Anesthesiology Consultation ---
Date of Service January 08, 2025 Assessment & Plan (1) Encounter for pre-operative examination: Chart Review Chart Review: Acceptable Risk for Surgery and Patient NOT seen in Pre Admission Testing Consults Requested none History Surgery Operation Date: 01/08/25 09:10 Proposed Procedures p Left Knee Arthroscopic Incision and Drainage - Len Kathleen Sotelo MD Height/Weight Height: 5 ft 10 in Weight: 104 kg Allergies Allergy/AdvReac Type Severity Reaction Status Date / Time morphine Allergy Severe Severe Verified 12/25/23 14:52 stomach pain Sulfa (Sulfonamide Allergy Intermediate HIVES Verified 12/25/23 14:52 Antibiotics) Medications Home Medications Medication Instructions Recorded Confirmed Last Taken lisinopril 20 mg tablet 20 mg PO QAM 09/21/23 01/07/25 01/07/25 metformin 500 mg tablet,extended 500 mg PO BID 09/21/23 01/07/25 01/07/25 release 24 hr empagliflozin 10 mg tablet 10 mg PO DAILY 12/25/23 01/07/25 01/07/25 (Jardiance) amlodipine 5 mg tablet 5 mg PO QAM 01/07/25 01/07/25 01/07/25 diclofenac sodium 75 mg 75 mg PO BID PRN Pain 01/07/25 01/07/25 Unknown tablet,delayed release insulin glargine 100 unit/mL (3 40 unit subcut HS 01/07/25 01/07/25 01/06/25 mL) subcutaneous pen (Lantus Solostar U-100 Insulin) Active Medications Generic Name Dose Route Start Last Admin Trade Name Freq PRN Reason Stop Dose Admin Amlodipine Besylate 5 mg 01/08/25 09:00 01/08/25 08:35 Amlodipine Besylate 5 Mg Tab PO 02/07/25 08:59 Not Given QAM EMIGDIO Calcium Carbonate 500 mg 01/08/25 03:06 01/08/25 05:14 Calcium Carbonate 500 Mg Chewable Tab PO 02/07/25 03:05 500 mg Q4H PRN Administration Indigestion Hydromorphone HCl 0.5 mg 01/08/25 01:32 01/08/25 10:47 Hydromorphone Inj 0.5 Mg/0.5 Ml Syr IV 01/22/25 01:31 0.5 mg Q3H PRN Administration Pain (6,7,8,9,10) Lactated Ringer's 1,000 mls @ 80 mls/hr 01/08/25 01:45 01/08/25 06:30 Lr IV 01/11/25 01:44 80 mls/hr .[id number] EMIGDIO Administration Insulin Aspart 0 units 01/08/25 01:45 01/08/25 13:07 Insulin Aspart Per Unit Charge SC 02/07/25 01:44 Not Given Q6 EMIGDIO Lisinopril 20 mg 01/08/25 09:00 01/08/25 08:35 Lisinopril 20 Mg Tab PO 02/07/25 08:59 Not Given QAM EMIGDIO NPO Date Last Intake of Fluids: 01/08/25 Time Last Intake of Fluids: 00:00 Date Last Intake of Solids: 01/07/25 Time Last Intake of Solids: 20:00 Past Medical History Medical History (Updated 01/08/25 @ 13:17 by Priyank Goel MD) Encounter for pre-operative examination Type 2 diabetes mellitus Psoriatic arthritis Badillo's palsy HTN (hypertension) Exercise / Class Metabolic Activity II 4-5 Yardwork/Stairs/Walk up hill Past Family History Family History Other Arthritis Past Surgical History Surgical History H/O left knee surgery S/P lumbar fusion Approximately 2020 History of hysterectomy History of cholecystectomy Social History Smoking Status: Former smoker Hx Alcohol Use: No Hx Substance Use: No Physical Exam Vital Signs Last Vital Signs Temp 37.1 C 01/08/25 12:20 Pulse 86 01/08/25 12:20 Resp 20 01/08/25 12:20 BP 127/78 01/08/25 12:20 Pulse Ox 94 01/08/25 12:20 O2 Del Method Room Air 01/08/25 12:20 Testing Laboratory Results 01/07/25 22:00 01/07/25 22:00 Hemoglobin A1c 7.7 % (4.5-5.6) H 01/08/25 04:19 Urine Color Yellow 01/07/25 22:00 Urine Appearance Clear (Clear) 01/07/25 22:00 Urine pH 6.5 (4.5-7.5) 01/07/25 22:00 Ur Specific [place] 1.037 (1.000-1.030) H 01/07/25 22:00 Urine Protein Negative (Negative) 01/07/25 22:00 Urine Glucose (UA) 3+ (Negative) H 01/07/25 22:00 Urine Ketones Negative (Negative) 01/07/25 22:00 Urine Nitrite Negative (Negative) 01/07/25 22:00 Ur Leukocyte Esterase Trace (Negative) H 01/07/25 22:00 Urine WBC (Auto) 6-10 /hpf (0-5) H 01/07/25 22:00 Urine RBC (Auto) 0-2 /hpf (0-2) 01/07/25 22:00 U Hyaline Cast (Auto) 0-2 /lpf (0-2) 01/07/25 22:00 U Epithel Cells (Auto) 0-2 /hpf (0-2) 01/07/25 22:00 Urine Bacteria (Auto) None Seen (None Seen) 01/07/25 22:00 01/08/25 00:15 Gram Stain - Final Knee,Left 01/08/25 01/08/25 01/08/25 12:01 06:17 02:16 POC Glucose 93 114 H 133 H
[2025-01-08] MEDS ORDERED: ATROPINE SULFATE 0.1 MG/ML 10ML SYR IV PRN (13:19)
[2025-01-08] MEDS ORDERED: PROMETHAZINE HCL 6.25 MG in SODIUM CHLORIDE 0.9% 50 ML IV PRN (13:19)
[2025-01-08] MEDS ORDERED: HYDROmorphone INJ 1 MG/ML SYRINGE IV PRN (13:19)
[2025-01-08] MEDS ORDERED: MIDAZOLAM HCL 1 MG/ML 2ML VIAL ONE (13:22)
[2025-01-08] MEDS ORDERED: DEXAMETHASONE SOD INJ 4 MG/ML VIAL ONE (13:22)
[2025-01-08] MEDS ORDERED: ONDANSETRON INJ 2 MG/ML 2 ML VIAL ONE (13:22)
[2025-01-08] MEDS ORDERED: PROPOFOL IV EMULSION 10 MG/ML 20 ML VIAL IV ONE (13:22)
[2025-01-08] MEDS ORDERED: LIDOCAINE 2% 2 ML VIAL/AMP(20MG/ML) INFIL ONE (13:22)
[2025-01-08] MEDS: TRANEXAMIC ACID / 0.7% NACL 1,000 MG/100 ML BAG IV ONE (15:00)
[2025-01-08] MEDS ORDERED: HYDROmorphone INJ 2 MG/ML SYR/VIAL ONE (15:01)
[2025-01-08] MEDS ORDERED: PHENYLEPHRINE 100MCG/ML 5ML SYR ONE (15:05)
[2025-01-08] MEDS ORDERED: METOPROLOL TARTRATE 1 MG/ML VIAL IV ONE (15:06)
[2025-01-08] MEDS: TRANEXAMIC ACID / 0.7% NACL 1000MG/100ML BAG IV ONE (15:33)
[2025-01-08] MEDS: VANCOMYCIN HCL 1,250 MG in SODIUM CHLORIDE 0.9% 250 ML IV SCH (16:20)
[2025-01-08 16:28] LABS: Color Synovial Fluid Yellow; Mononuclear WBC Synovial 9.0 %; Polynuclear WBC Synovial 91.0 %; RBC Synovial Fluid Auto 10000 /uL; Source Synovial Fluid Left Knee; WBC Synovial Fluid Auto 48130 /ul (0-200)
[2025-01-08] MEDS: EPINEPHrine HCL INJ 10 MG/10 ML VIAL ONE (16:33)
[2025-01-08] MEDS: BUPIVACAINE 0.5 % 5 MG/1 ML MPF 30ML VIAL ONE (16:34)
[2025-01-08] MEDS: LIDOCAINE 1%/EPINEPHRINE 1:100,000 50 ML VIAL ONE (16:36)
--- NOTE | 2025-01-08 16:38 | Post Operative Brief Note ---
Immediate Post Op Note Date of Surgery January 08, 2025 Pre & Post Diagnosis Operation Date: 01/08/25 09:10 Pre-Op Diagnosis: 1. Septic arthritis of knee, left Post-Op Diagnosis: 1. Septic arthritis of knee, left 2. Chondromalacia 3. Lateral meniscus tear I identified the patient and participated in the time-out.: Yes Procedure Operation Date: 01/08/25 09:10 Actual Procedures p Left Knee Arthroscopic Incision and Drainage, Chondroplasty, Partial Lateral Meniscectomy(Left) - Len Sotelo MD Surgeon Len Sotelo MD Signs And Displays Salesperson Enzo Brewer PA-C (No fellow avail) Estimated Blood Loss 18 Findings Consistent with Post-Op Diagnosis Fluids 750 cc Specimens Left knee fluid for Cell Count, Gram stain, C&S, Crystals Left knee synovium for pathology Drains Hemovac Drain Complications none
--- NOTE | 2025-01-08 16:39 | Operative Report ---
Post Operative Report Pre & Post Diagnosis Operation Date: 01/08/25 09:10 Pre-Op Diagnosis: 1. Left knee Septic arthritis Post-Op Diagnosis: 1. Left knee Septic arthritis 2. Chondromalacia 3. Lateral meniscus tear I identified the patient and participated in the time-out.: Yes Procedure Operation Date: 01/08/25 09:10 Actual Procedures p Left Knee Arthroscopic Incision and Drainage, Chondroplasty, Partial Lateral Meniscectomy(Left) - Len Sotelo MD Surgeon Len Sotelo MD Vocational Coordinator Enzo Brewer PA-C (No fellow avail) Estimated Blood Loss 18 Findings See Below The left knee was examined under anesthesia. Range of motion was 10-90 degrees. Ligamentous examination exhibited: stable Shea, posterior drawer, varus and valgus stress at 10 & 30 degrees. Post-op ROM 0-130 deg ARTHROSCOPIC FINDINGS: There was significant turbid yellow fluid aspirated from the joint, and synovitis in the suprapatellar pouch, both gutters, under the menisci, within the notch, and fat pad. 1) PATELLOFEMORAL JOINT: The articular cartilage of the Patella had [place] grade II changes. The articular cartilage of the Trochlea grade II changes centrally. 2) GUTTERS: No loose bodies. Significant synovitis 3) MEDIAL COMPARTMENT: The articular cartilage of the femur grade I changes. The articular cartilage of the Tibia grade I changes. The medial meniscus normal. 4) ACL/PCL: There was synovitis in the notch, after it was removed, the ACL & PCL were both visualized and probed to be intact. 5) LATERAL COMPARTMENT: The lateral compartment was then entered in a [id number] position. The articular cartilage of the femur had grade II changes. The articular cartilage of the Tibia had diffuse grade II changes. The lateral meniscus had degenerative tear at the posterior horn and apex. Fluids 750 cc Specimens Left knee fluid for Cell Count, Gram stain, C&S, Crystals Left knee synovium for pathology Drains HVAC Anesthesia Type General Complications none Indications This is a 54-year-old female who has clinical findings consistent with left knee septic arthritis. I recommend that a left knee arthroscopy with I&D be performed. The patient understands the risks of surgery, which include but are not limited to: bleeding, infection, re-operation, damage to nerves and arteries, continued knee pain, progression of OA, DVT, and heart attack, stroke, . The patient understands all these instructions and explanations, all his questions have been satisfactorily addressed, and the patient has elected to proceed. Informed consent was signed. Description of Procedure Enzo Brewer PA-C is assisting with positioning, instruments, and closure due to fellow not available. Procedure: The patient was taken to the Operating Room and placed in the supine position after discussing with anesthesia that this is not an elective case, her EKG changes would need to be worked up further during her hospital stay. After general anesthetic was administered, my initials and a multidisciplinary time- out were used to identify the correct patient and the left leg as the operative limb. Antibiotics were held until after cultures were obtained and her regular Vancomycin was administered.The left leg was then prepped and draped in a standard sterile fashion. The anterolateral and anteromedial portals were injected with the 50:50 mix of 1% Lidocaine plain and 0.5% Marcaine with epinephrine, for a total of 2 cc, in the standard fashion. An anterolateral arthroscopic portal was established with an 11-blade. Next, the arthroscope was introduced into the knee and over 10 cc of yellow turbid synovial fluid was collected and sent for cell count, gram stain, C&S, and crystals. A diagnostic arthroscopy commenced and both the superolateral and anteromedial portals were established under direct visualization using a spinal needle followed by an 11 blade in the standard fashion. The above findings were observed during the diagnostic arthroscopy. The synovitis through out the knee in the suprapatellar pouch, both gutters, medial/lateral compartments, notch, and anterior fat pad were debrided as they were encounter with mechanical shaver and [place].The articular cartilage damage in the patellofemoral & lateral compartments were debrided back to stable margins as they were encountered with mechanical shaver. The lateral meniscus tear was evaluated and found to be irreparable and was debrided back to stable margin with hand punches, and mechanical shaver, they were probed after and found to be stable. Using a curved Torpedo, the posterior lateral compartment was able to be debrided. I was unable o preform a Gillquist view medially. The knee was copiously irrigated with 12 L normal saline. Using the superolateral canula the large Hemovac was placed. The arthroscopic instruments were then removed. The portals were closed with 3-0 Prolene in a standard fashion. The wound was dressed with Xeroform gauze, sterile gauze, ABDs, sterile Webril, and a foot to thigh Abdullahi bandage. The patient was then transferred to the Recovery Room in stable condition. The sponge and needle counts were correct. Post-op Instructions: The patient will be WBAT. The patient will be re-admitted to the hospitalist service on Telemetry and further cardiac work-up will be obtained. Depending on the cultures and pathology will likely need an ID consult. Will start PT/OT when able. Will d/c the HVAC within 48 hours, when output is less than 50 cc per shift. I attest to the content of the Intraoperative Record and any orders documented therein. Any exceptions are noted below.
--- NOTE | 2025-01-08 17:03 | Operative Report ---
Post Operative Report Pre & Post Diagnosis Operation Date: 01/08/25 09:10 Pre-Op Diagnosis: 1. Septic arthritis of knee, left Post-Op Diagnosis: 1. Septic arthritis of knee, left 2. Chondromalacia 3. Lateral meniscus tear I identified the patient and participated in the time-out.: Yes Procedure Operation Date: 01/08/25 09:10 Actual Procedures p Left Knee Arthroscopic Incision and Drainage, Chondroplasty, Partial Lateral Meniscectomy(Left) - Len Sotelo MD Surgeon Len Sotelo M.D. Technical Manager [employer] Enzo Brewer PA-C (No fellow avail) Estimated Blood Loss 18 Findings Consistent with Post-Op Diagnosis Specimens left knee joint fluid and synovial tissue Anesthesia Type General Description of Procedure Patient was taken to the operating room and placed under general anesthesia. She was prepped and draped in routine sterile fashion. IV antibiotics were held preoperatively until after obtaining cultures and then she was given 1250 mg of vancomycin. I was present during the entire case, please see Dr. Sotelo's operative report for more details regarding today's procedure. Patient was ramesh kened and transferred to the recovery room in stable condition. I attest to the content of the Intraoperative Record and any orders documented therein. Any exceptions are noted below.
--- NOTE | 2025-01-08 17:15 | Anesthesiology Progress Note ---
Date of Service January 08, 2025 Anesthesia Post Procedure Vital Signs Vital Signs: Temp Pulse Pulse Resp BP BP Pulse Ox 01/08/25 12:20 37.1 C 86 20 127/78 94 01/08/25 10:58 01/08/25 07:40 36.8 C 67 20 100/66 98 01/08/25 06:33 01/08/25 06:15 36.2 C L 72 18 107/70 94 01/08/25 05:57 82 18 113/68 98 01/08/25 02:30 36.4 C 01/08/25 02:29 82 17 113/68 98 01/07/25 23:10 79 01/07/25 23:00 77 17 109/63 95 01/07/25 20:14 36.5 C 111 H 18 108/71 96 O2 Del Method 01/08/25 12:20 Room Air 01/08/25 10:58 Room Air 01/08/25 07:40 Room Air 01/08/25 06:33 Room Air 01/08/25 06:15 Room Air 01/08/25 05:57 Room Air 01/08/25 02:30 01/08/25 02:29 01/07/25 23:10 01/07/25 23:00 Room Air 01/07/25 20:14 Room Air Transfer of Care Handoff Completed per policy Notes Mental Status: alert / awake / arousable and participated in evaluation Patient Amnestic to Procedure: Yes Nausea / Vomiting: adequately controlled Pain: adequately controlled Airway Patency, RR, SpO2: stable & adequate BP & HR: see Notes below Hydration State: stable & adequate Anesthetic Complications: see Notes below and Pt Satisfied with anesthetic care Notes: Patient had new onset LBBB prior to induction in operating room. Patient denied any chest pain but did endorse esophageal spasms the day before (per patient she was told years ago this was noncardiac in nature). LBBB was confirmed in OR with 12 lead ECG. Decision was made to continue with procedure as patient has a septic knee in need of I and D. Primary hospitalist team was made aware and will evaluate patient after procedure. I also contacted cotton breeder copper roller handler printing and he will likely see patient during this hospital stay. I had already ordered troponin series for post-op (first set drawn in PACU). In recovery, patient again denied any chest pain/tightness/discomfort/palpitations or SOB. Patient on tele galeas and will be closely monitored and defer to primary team/cardiology for further ischemic workup. Patient had all questions answered.
[2025-01-08] MEDS ORDERED: NALOXONE HCL 0.4 MG/1 ML VIAL/CARP IV PRN (18:06)
[2025-01-08] MEDS: SODIUM CHLORIDE 0.9% 1,000 ML IV SCH (18:51)
[2025-01-08] MEDS: DOCUSATE SODIUM 100 MG CAP PO SCH (20:42)
[2025-01-08] MEDS: ACETAMINOPHEN 500 MG TAB PO SCH (22:52)
[2025-01-09 06:16] LABS: Hematocrit (blood only) 36.6 % (37.0-47.0); Hemoglobin 13.0 g/dl (12.0-16.0); Immature Granulocytes # (auto) 0.03 K/uL (0.01-0.20); Immature Granulocytes % (auto) 0.3 %; Mean Corpuscular Hemoglobin 31.9 pg (25.0-34.0); Mean Corpuscular Volume 89.9 fL (80.0-100.0); Platelet Count 249 K/uL (130-400); RDW Standard Deviation 39.5 fL (36.4-46.3); Red Blood Count 4.07 M/uL (4.20-5.40); White Blood Count 8.91 K/ul (4.8-10.8)
[2025-01-09 06:45] LABS: Anion Gap 5.0 (3-11); Blood Urea Nitrogen 12.0 mg/dl (6-23); Calcium 8.4 mg/dl (8.6-10.3); Carbon Dioxide 26.0 mmol/L (21-32); Chloride 105.0 mmol/L (98-107); Creatinine Clr Calc Pharmacy 164.2 ml/min; Glucose 82.0 mg/dl (70-99(Fasting)); Potassium 4.0 mmol/L (3.5-5.1); Sodium 136.0 mmol/L (136-145)
[2025-01-09] MEDS: ASPIRIN 81 MG ECTAB PO SCH (08:23)
[2025-01-09 08:52] LABS: Creatinine Clr Calc Pharmacy 146.6 ml/min
--- NOTE | 2025-01-09 09:26 | Orthopedic Progress Note ---
Date of Service January 09, 2025 Assessment & Plan (1) Septic arthritis of knee, left: Plan: Ice with easy wrap Weightbearing as tolerated with walker or crutches PT/OT Pain control with p.o. medication Currently on IV vancomycin DVT prophylaxis per medicine discretion Will continue to follow cultures. She may need ID consult Patient will need a 2-week follow-up in our clinic. Admission and Anticipated Discharge Date Admission Date: January 08, 2025 Supervising Physician Co-Signing Physician Notes I, Dr. Sotelo, saw and examined the patient and agree with the above findings described by my PA. Subjective This 54-year-old female is day 1 status post left knee arthroscopy with irrigation debridement. She states she is doing very well. She states her pain is well-controlled p.o. pain medication. She states that the drain seems to be working properly. She denies chest pain, shortness of breath, fever, chills, sweats, nausea, vomiting, diarrhea or difficulty voiding. She has no complaint of numbness or tingling in the left lower extremity. Review of Systems Review of Systems: All systems reviewed & are unremarkable except as noted in Subjective Physical Exam Physical Exam: Left lower extremity: Dressing was slightly saturated so I removed it. I applied new drain sponges, 4 x 4's ABDs and a light compression with Abdullahi bandages. Her drain is functioning properly. I did not pull it. She does have some swelling and fluid over the anterior aspect of the knee. She is able to extend to 0 degrees and flex to 60 degrees actively. She is able to form an active straight leg raise test. She can actively dorsi and plantarflex her foot. Her peripheral pulses are 2+. She is able to detect light sensation to touch over the pads of all digits and is neurovascularly intact in the left lower extremity. Results & Data Vital Signs (Past 12 Hours) Vital Signs Temp Pulse Pulse Pulse Resp BP BP 01/09/25 07:43 36.7 C 70 20 101/61 01/09/25 07:31 76 01/09/25 02:41 37.3 C 80 18 108/65 01/08/25 22:45 96 H 01/08/25 22:42 37.1 C 92 H 18 103/58 L Pulse Ox O2 Del Method 01/09/25 07:43 97 Room Air 01/09/25 07:31 01/09/25 02:41 95 Room Air 01/08/25 22:45 01/08/25 22:42 93 Room Air Diagnostic Findings Laboratory Results WBC 8.91 K/ul (4.8-10.8) 01/09/25 05:42 RBC 4.07 M/uL (4.20-5.40) L 01/09/25 05:42 Hgb 13.0 g/dl (12.0-16.0) 01/09/25 05:42 Hct 36.6 % (37.0-47.0) L 01/09/25 05:42 MCV 89.9 fL (80.0-100.0) 01/09/25 05:42 MCH 31.9 pg (25.0-34.0) 01/09/25 05:42 MCHC 35.5 g/dL (32.0-36.0) 01/09/25 05:42 RDW Std Deviation 39.5 fL (36.4-46.3) 01/09/25 05:42 RDW Coeff of Shilpi 11.9 % (11.5-14.5) 01/09/25 05:42 Plt Count 249 K/uL (130-400) 01/09/25 05:42 MPV 9.2 fL (9.4-12.4) L 01/09/25 05:42 Immature Gran % (Auto) 0.3 % 01/09/25 05:42 Neut % (Auto) 61.5 % 01/09/25 05:42 Lymph % (Auto) 24.9 % 01/09/25 05:42 Hancock % (Auto) 12.6 % 01/09/25 05:42 Eos % (Auto) 0.4 % 01/09/25 05:42 Baso % (Auto) 0.3 % 01/09/25 05:42 Neut # (Auto) 5.47 K/uL (1.40-6.50) 01/09/25 05:42 Lymph # (Auto) 2.22 K/uL (1.20-3.40) 01/09/25 05:42 Hancock # (Auto) 1.12 K/uL (0.11-0.59) H 01/09/25 05:42 Eos # (Auto) 0.04 K/uL (0.00-0.50) 01/09/25 05:42 Baso # (Auto) 0.03 K/uL (0.00-0.20) 01/09/25 05:42 Immature Gran # (Auto) 0.03 K/uL (0.01-0.20) 01/09/25 05:42 ESR 72 mm/hr (0-30) H 01/07/25 20:00 Sodium 136 mmol/L (136-145) 01/09/25 05:42 Potassium 4.0 mmol/L (3.5-5.1) 01/09/25 05:42 Chloride 105 mmol/L (98-107) 01/09/25 05:42 Carbon Dioxide 26 mmol/L (21-32) 01/09/25 05:42 Anion Gap 5 (3-11) 01/09/25 05:42 BUN 12 mg/dl (6-23) 01/09/25 05:42 Creatinine 0.56 mg/dl (0.6-1.2) L 01/09/25 08:06 Est Cr Clr Drug Dosing 146.6 ml/min 01/09/25 08:06 eGFR 109.06 01/09/25 08:06 BUN/Creatinine Ratio 24.0 (10-20) H 01/09/25 05:42 Glucose 82 mg/dl (70-99(Fasting)) 01/09/25 05:42 POC Glucose 91 mg/dl (70-99) 01/09/25 07:57 Estimat Average Glucose 174 mg/dl 01/08/25 04:19 Hemoglobin A1c 7.7 % (4.5-5.6) H 01/08/25 04:19 Lactate 1.5 mmol/L (0.4-2.0) 01/07/25 22:00 Calcium 8.4 mg/dl (8.6-10.3) L 01/09/25 05:42 Total Bilirubin 0.5 mg/dl (0.2-1.0) 01/07/25 22:00 AST 13 U/L (13-39) 01/07/25 22:00 ALT 18 U/L (7-52) 01/07/25 22:00 Alkaline Phosphatase 58 U/L (34-104) 01/07/25 22:00 Troponin I High Sens 2.6 pg/ml (0-14) 01/09/25 05:43 C-Reactive Protein 15.85 mg/dl (0-0.5) H 01/09/25 05:42 Total Protein 7.6 gm/dl (6.0-8.3) 01/07/25 22:00 Albumin 3.7 gm/dl (3.4-5.0) 01/07/25 22:00 Globulin 3.9 gm/dl (2.5-4.0) 01/07/25 22:00 Albumin/Globulin Ratio 0.9 (0.9-2) 01/07/25 22:00 Procalcitonin 0.05 ng/ml (0-0.5) 01/07/25 22:00 Urine Color Yellow 01/07/25 22:00 Urine Appearance Clear (Clear) 01/07/25 22:00 Urine pH 6.5 (4.5-7.5) 01/07/25 22:00 Ur Specific [place] 1.037 (1.000-1.030) H 01/07/25 22:00 Urine Protein Negative (Negative) 01/07/25 22:00 Urine Glucose (UA) 3+ (Negative) H 01/07/25 22:00 Urine Ketones Negative (Negative) 01/07/25 22:00 Urine Blood Negative (Negative) 01/07/25 22:00 Urine Nitrite Negative (Negative) 01/07/25 22:00 Urine Bilirubin Negative (Negative) 01/07/25 22:00 Urine Urobilinogen Negative (Negative) 01/07/25 22:00 Ur Leukocyte Esterase Trace (Negative) H 01/07/25 22:00 Urine WBC (Auto) 6-10 /hpf (0-5) H 01/07/25 22:00 Urine RBC (Auto) 0-2 /hpf (0-2) 01/07/25 22:00 U Hyaline Cast (Auto) 0-2 /lpf (0-2) 01/07/25 22:00 U Epithel Cells (Auto) 0-2 /hpf (0-2) 01/07/25 22:00 Urine Bacteria (Auto) None Seen (None Seen) 01/07/25 22:00 Urine Comment 01/07/25 22:00 Fluid Comment 01/08/25 15:21 Synovial Source Left Knee 01/08/25 15:21 Synovial Color Yellow 01/08/25 15:21 Synovial Appearance Cloudy 01/08/25 15:21 Synovial WBC (Auto) 53035 /ul (0-200) H 01/08/25 15:21 Synovial RBC (Auto) 97529 /uL 01/08/25 15:21 Synovial Polynuclear % 91.0 % 01/08/25 15:21 Synovial Mononuclear % 9.0 % 01/08/25 15:21 Synovial Crystals 01/08/25 00:15 Lyme Disease Screen Negative (Negative) 01/07/25 22:00 Impressions Abdomen/Pelvis CT 01/07/25 21:32 Exam(s): CT ABDOMEN + PELVIS With Contrast IV Amt: 93ml opti 320 EXAM: CT Abdomen and Pelvis With Intravenous Contrast CLINICAL HISTORY: Reason for exam: RLQ pain. TECHNIQUE: Axial computed tomography images of the abdomen and pelvis with intravenous contrast. CTDI is 27.03 mGy and DLP is 1616.41 mGy-cm. Automated exposure control was utilized for the study. A dose lowering technique was utilized adhering to the principles of ALARA. CONTRAST: Patient received 93ml opti 320 of IV contrast COMPARISON: 09/26/2017 postop changes prior cholecystectomy FINDINGS: Lung bases: Unremarkable. No mass. No consolidation. ABDOMEN: Liver: Hepatomegaly. Gallbladder and bile ducts: Unremarkable. No calcified stones. No ductal dilation. Pancreas: Unremarkable. No mass. No ductal dilation. Spleen: Unremarkable. No splenomegaly. Adrenals: Unremarkable. No mass. Kidneys and ureters: Unremarkable. No solid mass. No hydronephrosis. Stomach and bowel: Moderate amount of stool within the colon. No obstruction. No mucosal thickening. PELVIS: Appendix: Normal-appearing appendix with its tip directed towards the right hemipelvis. Bladder: Unremarkable. No mass. Reproductive: Uterus is surgically absent. ABDOMEN and PELVIS: Intraperitoneal space: Unremarkable. No free air. No significant fluid collection. Bones/joints: No acute fracture. No dislocation. Soft tissues: Unremarkable. Vasculature: Unremarkable. No abdominal aortic aneurysm. Lymph nodes: Unremarkable. No enlarged lymph nodes. IMPRESSION: No acute findings in the abdomen or pelvis. Moderate amount of stool within the colon Normal-appearing appendix Gallbladder and uterus are both surgically absent Electronically signed by: Ismael Hernandez MD 01/07/25 23:11 PM Knee X-Ray 01/07/25 21:32 Exam(s): XR LEFT KNEE, 3 views EXAM: XR Left Knee, 3 Views CLINICAL HISTORY: Reason for exam: pain. TECHNIQUE: Three views of the left knee. COMPARISON: No relevant prior studies available. FINDINGS: Bones/joints: Small left knee effusion. No acute fracture. No dislocation. Soft tissues: Unremarkable. IMPRESSION: No acute findings in the left knee. Electronically signed by: Ismael Hernandez MD 01/07/25 23:[address] 01/07/25 21:32 Exam(s): CT L SPINE With Contrast IV Amt: 93ml opti 320 EXAM: CT Lumbar Spine With Intravenous Contrast CLINICAL HISTORY: Reason for exam: radicular pain. TECHNIQUE: Axial computed tomography images of the lumbar spine with intravenous contrast. CTDI is 27.03 mGy and DLP is 1616.41 mGy-cm. Automated exposure control was utilized for the study. A dose lowering technique was utilized adhering to the principles of ALARA. CONTRAST: Patient received 93ml opti 320 of IV contrast COMPARISON: No relevant prior studies available. FINDINGS: Vertebrae: Unremarkable. No acute fracture. Discs/spinal canal/neural foramina: Facet and ligamentous hypertrophic changes with a superimposed broad-based posterior disc bulge at L4-L5 results in mild bilateral foraminal narrowing. Soft tissues: Unremarkable. IMPRESSION: Normal lumbar spine CT. L4-5 degenerative changes as above Electronically signed by: Ismael Hernandez MD 01/07/25 23:26 PM Pathology Report Case #: [id number] Collected: 01/08/25 Received: 01/08/25 Copies To Susan Navarro D.O. Bader, Dov A., MD Clinical History Septic arthritis of knee, left. Procedure performed: Arthroscopy knee. FINAL DIAGNOSIS Synovium, left knee, synovectomy: - Marked acute synovitis at 1226. Gross Description SYNOVIUM LEFT KNEE The specimen is received in a container labeled synovium left knee with the patient name. The specimen consists of pink, bonilla and red soft, rubbery tissue and blood clot. In the aggregate this measures 2.0 x 1.5 x 0.2 cm. The specimen is submitted entirely in a single cassette. Current Procedural Terminology 10128e5 Surgical Pathology Report Page 1 of 1
--- NOTE | 2025-01-09 11:33 | Hospitalist Progress Note ---
Date of Service January 09, 2025 Assessment & Plan (1) Septic arthritis of knee, left: (2) Type 2 diabetes mellitus: Plan 55-year-old female PMHx psoriatic arthritis, HTN, DM, and Badillo's palsy presenting for L knee pain and swelling x 1 week. ED evaluation concerning for elevated ESR and CRP (72 and 14.63 respectively) with L knee joint effusion. Synovial fluid analysis with WBC > 50k. Will be admitted for septic arthritis, with ortho consult placed. #Septic Arthritis, L knee History of psoriatic arthritis/HLA-B27 positive/inflammatory joint disease, follows with rheumatology most recent visit being 12/25/2023. Hx of meniscus repair ~ 10 years ago. R knee XR with small joint effusion Mild leukocytosis (12), CRP 14.63, ESR 72 on admisson Synovial fluid analysis WBC 79,600, crystal analysis without evidence of gout or psuedogout Continue vancomycin Ortho consulted - plan for OR today, follow cultures. outpatient follow up in 2 weeks Pain control: Acetaminophen prn pain/fever, oxycodone PT/OT slight increase in CRP, continue to trend Gram stain pending - if concern for organism, consult ID AM CBC, BMP and CRP #psroasis Mainly with psoriatic arthritis - which was well controlled with NSAID but stopped with LFT elevation. has not been on topical but worsening rash on neck and groin area add betamethasone cream #New LBBB Seen on EKG perioperatively with induction of anesthesia with versed and fentanyl. Pt denies CP/SOB/palpiations, but does report occasional "esophageal spams" last one 01/07 Consult cardiology #T2DM H/o DMT2; at home regimen Jardiance, insulin glargine 40U HS, metformin - HELD A1c 7.7 Lantus 20u HS, SSI with target BSG range 110-140mg/dL, CF 30, carb ratio 10 #HTN- Amlodipine, lisinopril - continue Dispo: continued inpatient stay, cardiology consult, following cultures. VTE Prophylaxis: SCDs - if prolonged stay add chemical Admission and Anticipated Discharge Date Admission Date: January 08, 2025 Subjective Patient seen lying in bed - pain is much improved feeling much better denies cp, sob or palpiations. Does report she gets occasional esophageal spasm that she takes tums and lays down for and they go away. happens every few months, the last one was sunday 01/07 no BM yet Tele SR IVCD 80s Review of Systems Review of Systems: All systems reviewed & are unremarkable except as noted in Subjective Physical Exam Physical Exam: General: NAD, VS as above Resp: normal respiratory effort, lungs clear to auscultation CV: RRR, no murmur, Abd: normal bowel sounds, non tender, no hepatosplenomegaly Extremities: Moves all extremities, left knee with caden wrap and ice in place Neuro: A&O x3, Results & Data Results & Data Vital Signs (Past 12 Hours) Vital Signs Temp Pulse Pulse Resp BP BP Pulse Ox 01/09/25 11:06 98.4 F 72 20 113/68 95 01/09/25 07:43 98.1 F 70 20 101/61 97 01/09/25 07:31 76 01/09/25 02:41 99.1 F 80 18 108/65 95 O2 Del Method 01/09/25 11:06 Room Air 01/09/25 07:43 Room Air 01/09/25 07:31 01/09/25 02:41 Room Air Laboratory Results cbc, chemistry and troponin reviewed PG Care Time/CCT Total # of Minutes Spent Total Time Spent with Patient: Total time spent is greater than 50% in coordination of care (as documented) at patient's floor/unit and/or counseling patient: Coding Level of Care Code 70651 SUB INP/OBS CARE 3/50MIN Diagnoses Septic arthritis of knee, left M00.9 Type 2 diabetes mellitus E11.9
--- NOTE | 2025-01-09 11:55 | Pharmacy Report ---
Pharmacy PK ABX Note - Date of Service January 09, 2025 - Assessment and Plan Assessment 01/09 * Random vancomycin level this AM was 9.9 mcg/ml - current vancomycin regimen associated with below goal AUC/SANIYA therefore will increase to 1250 mg iv q 8 hours 01/08: * 54 year old F with h/o of psoriatic arthritis and diabetes who presented with L knee pain and swelling x 1. ESR and CRP elevated. Small L knee effusion noted on Knee XR. Synovial fluid analysis showing WBC 79,000 with elevated neutrophil percentage. L knee culture and BC pending. Patient ordered empiric vancomycin IV for septic arthritis. Ortho consulted. Plan Vancomycin * Increase 1250 mg iv q 8 hours to target goal AUC/SANIYA 400-600 * Awaiting finalized cultures from I&D on 01/08 Pharmacy will continue to follow and will adjust dose/frequency as necessary. Thank you.
[2025-01-09] MEDS: VANCOMYCIN HCL 1,250 MG in SODIUM CHLORIDE 0.9% 250 ML IV SCH (12:25)
--- NOTE | 2025-01-09 12:50 | Cardiology Consultation ---
Date of Consultation January 09, 2025 Assessment & Plan (1) LBBB (left bundle branch block): This appeared upon the induction of anesthesia. Repeat EKG this morning confirms. The patient has been asymptomatic. Will order a lyme panel along with an echocardiogram. Supervising Physician Co-Signing Physician Notes History and exam reviewed in detail with Deidra Silverman. She seems to have new onset of an intermittent left bundle branch block, her electrocardiogram at 8:08 AM January 08, 2025 did not show this but she has alternating left bundle (which is a little bit unusual) at a somewhat faster heart rate on the same day at 14:48 AM. A Lyme titer is negative. The cause of this abnormality is not clear, it may be somewhat rate related. I would recommend an echocardiogram to make sure there is not some type of structural heart disease which might explain it. Otherwise we should follow it to see whether there is progressive AV block. History of Present Illness Reason for Consultation: Left bundle branch block Attending Physician: Bonita Ch MD History of Present Illness Margaret Thomason is a 54 year old female with a pmh of DM who initially presented to the ER on 01/07/2025 due to left knee swelling. This was concerning for septic arthritis. On 01/08/2025, she underwent a left knee arthroscopic I&D. Her preoperative EKG revealed normal sinus rhythm with a rate in the 70s. Her perioperative EKG showed the development of a left bundle branch block with rates in the 90s upon anesthesia induction. Her troponin was negative x 2 and she was asymptomatic with this. This morning, her EKG again reveals a left bundle branch block with rates in the 70s. The patient remains asymptomatic at this time. Allergies Allergy/AdvReac Type Severity Reaction Status Date / Time morphine Allergy Severe Severe Verified 12/25/23 14:52 stomach pain Sulfa (Sulfonamide Allergy Intermediate HIVES Verified 12/25/23 14:52 Antibiotics) Home Medications Medication Instructions Recorded Confirmed Type lisinopril 20 mg tablet 20 mg PO QAM 09/21/23 01/07/25 History metformin 500 mg tablet,extended 500 mg PO BID 09/21/23 01/07/25 History release 24 hr empagliflozin 10 mg tablet 10 mg PO DAILY 12/25/23 01/07/25 History (Jardiance) amlodipine 5 mg tablet 5 mg PO QAM 01/07/25 01/07/25 History diclofenac sodium 75 mg 75 mg PO BID PRN Pain 01/07/25 01/07/25 History tablet,delayed release insulin glargine 100 unit/mL (3 40 unit subcut HS 01/07/25 01/07/25 History mL) subcutaneous pen (Lantus Solostar U-100 Insulin) Patient History Medical History (Updated 01/09/25 @ 12:51 by AR Root) Encounter for pre-operative examination Type 2 diabetes mellitus Psoriatic arthritis Badillo's palsy HTN (hypertension) Surgical History H/O left knee surgery S/P lumbar fusion Approximately 2020 History of hysterectomy History of cholecystectomy Family History Other Arthritis Social History Smoking Status: Former smoker Hx Alcohol Use: No Hx Substance Use: No Preferred Language: Korean Communication Ability: Effective Medical Assembler Required: No Beliefs That Will Affect Care: None Current Living Situation: Spouse Current Living Situation Comment: , daughter, son; house - accessible in front, bedroom is upstairs Feels Safe at Home: Yes Safety Concerns: Feels Safe At This Time Assistive Devices: None Review of Systems Review of Systems: Per HPI Physical Exam Physical Exam: Physical Exam: AOx3. Mood affect appear normal. All questions appropriately. Obese HEENT: Sclerae are anicteric. Pupils are equal and reactive to light and accommodation. Extraocular movements were intact. Neuro: Cranial nerves intact Lungs: Lungs are clear to auscultation bilaterally. There are no rales wheezes or rhonchi. She has normal respiratory effort without use of accessory muscles. There is normal pulmonary excursion. Cardiac: The rhythm was regular. S1 and S2 were normal. There are no murmurs on examination. The PMI was not markedly displaced on palpation. Extremities: Patient has bilateral radial pulses that are equal in intensity. There is no evidence cyanosis or clubbing. There was no evidence of significant peripheral edema bilaterally. Skin: There are no rashes noted on examination today. Results & Data Vital Signs (Past 12 Hours) Vital Signs Temp Pulse Pulse Resp BP BP Pulse Ox 01/09/25 11:06 36.9 C 72 20 113/68 95 01/09/25 07:43 36.7 C 70 20 101/61 97 01/09/25 07:31 76 01/09/25 02:41 37.3 C 80 18 108/65 95 O2 Del Method 01/09/25 11:06 Room Air 01/09/25 07:43 Room Air 01/09/25 07:31 01/09/25 02:41 Room Air PG Care Time/CCT Total # of Minutes Spent Total Time Spent with Patient: Total time spent is greater than 50% in coordination of care (as documented) at patient's floor/unit and/or counseling patient: [place] [address] IN/OBS CONSULT LVL 2,35M Patient Type New Medical Decision Making Straight Forward Diagnoses LBBB (left bundle branch block) I44.7
[2025-01-09] MEDS: BETAMETHASONE DIP AUG (DIPROLENE) 0.05% CR 15 GM TUBE EXT SCH (13:27)
--- NOTE | 2025-01-09 14:15 | Electrocardiogram Report ---
Test Reason : Blood Pressure : */* mmHG Vent. Rate : 91 BPM Atrial Rate : 91 BPM P-R Int : 180 ms QRS Dur : 148 ms QT Int : 402 ms P-R-T Axes : 14 -16 111 degrees QTcB Int : 494 ms Sinus rhythm with LBBB in a bigeminal pattern Abnormal ECG When compared with ECG of 08-Jan-2025 08:08, (unconfirmed) Left bundle branch block is now Present Confirmed by Alphonso Irvin ([id number]) on 01/09/2025 2:14:46 PM Referred By: REFERRED SELF Confirmed By: Alphonso Irvin
--- NOTE | 2025-01-09 14:46 | Electrocardiogram Report ---
Test Reason : Blood Pressure : */* mmHG Vent. Rate : 70 BPM Atrial Rate : 70 BPM P-R Int : 168 ms QRS Dur : 90 ms QT Int : 408 ms P-R-T Axes : 6 -29 24 degrees QTcB Int : 440 ms Normal sinus rhythm Normal ECG When compared with ECG of 31-Dec-2017 14:28, QRS axis Shifted left Confirmed by Alphonso Irvin ([id number]) on 01/09/2025 2:46:11 PM Referred By: REFERRED SELF Confirmed By: Alphonso Irvin
[2025-01-09] MEDS: POLYETHYLENE (MIRALAX) 17 GM PACK PO PRN (15:58)
[2025-01-09] MEDS: NYSTATIN/TRIAMCIN CR 15 GM TUBE EXT SCH (20:18)
[2025-01-10 06:37] LABS: Hematocrit (blood only) 37.3 % (37.0-47.0); Hemoglobin 12.4 g/dl (12.0-16.0); Mean Corpuscular Hemoglobin 29.9 pg (25.0-34.0); Mean Corpuscular Volume 89.9 fL (80.0-100.0); Platelet Count 263 K/uL (130-400); RDW Standard Deviation 40.2 fL (36.4-46.3); Red Blood Count 4.15 M/uL (4.20-5.40); White Blood Count 9.12 K/ul (4.8-10.8)
[2025-01-10 07:16] LABS: Anion Gap 5.0 (3-11); Blood Urea Nitrogen 13.0 mg/dl (6-23); Calcium 8.8 mg/dl (8.6-10.3); Carbon Dioxide 27.0 mmol/L (21-32); Chloride 107.0 mmol/L (98-107); Creatinine Clr Calc Pharmacy 147.0 ml/min; Glucose 124.0 mg/dl (70-99(Fasting)); Potassium 4.0 mmol/L (3.5-5.1); Sodium 139.0 mmol/L (136-145)
--- NOTE | 2025-01-10 08:25 | Orthopedic Progress Note ---
Date of Service January 10, 2025 Assessment & Plan (1) Septic arthritis of knee, left: Plan: POD #2 s/p arthroscopic I&D left knee, improving, No growth with cultures PLAN: Ice with easy wrap Weightbearing as tolerated with walker or crutches PT/OT Pain control with p.o. medication Currently on IV vancomycin DVT prophylaxis per medicine discretion Dressing changed 01/10/25 HVAC d/c 01/10/25 Will continue to follow cultures. She may need ID consult Patient will need a 1-week follow-up in our clinic. Admission and Anticipated Discharge Date Admission Date: January 08, 2025 Subjective Knee feeling better, increased mobility and able to bare weight. Physical Exam Physical Exam: LLE: Sensation to light touch intact distally. Motor gastroc soleus, Tib ant, EHL intact & able to preform straight leg raise. 2+ DP pulse. Incisons clean, d ry, intact. HVAC removed. Results & Data Vital Signs (Past 12 Hours) Vital Signs Temp Pulse Pulse Resp BP BP Pulse Ox 01/10/25 08:08 36.8 C 74 16 128/80 97 01/10/25 07:34 71 01/10/25 04:48 36.7 C 69 14 111/69 96 01/09/25 23:20 36.6 C 73 16 133/72 92 01/09/25 21:43 79 O2 Del Method 01/10/25 08:08 Room Air 01/10/25 07:34 01/10/25 04:48 Room Air 01/09/25 23:20 Room Air 01/09/25 21:43 Laboratory Results 01/10/25 01/10/25 01/09/25 Range/Units 08:20 06:11 19:47 WBC 9.12 (4.8-10.8) K/ul RBC 4.15 L (4.20-5.40) M/uL Hgb 12.4 (12.0-16.0) g/dl Hct 37.3 (37.0-47.0) % MCV 89.9 (80.0-100.0) fL MCH 29.9 (25.0-34.0) pg MCHC 33.2 (32.0-36.0) g/dL RDW Std Deviation 40.2 (36.4-46.3) fL RDW Coeff of Shilpi 12.2 (11.5-14.5) % Plt Count 263 (130-400) K/uL MPV 8.8 L (9.4-12.4) fL Sodium 139 (136-145) mmol/L Potassium 4.0 (3.5-5.1) mmol/L Chloride 107 (98-107) mmol/L Carbon Dioxide 27 (21-32) mmol/L Anion Gap 5 (3-11) BUN 13 (6-23) mg/dl Creatinine 0.56 L (0.6-1.2) mg/dl Est Cr Clr Drug Dosing 147.0 ml/min eGFR 109.06 BUN/Creatinine Ratio 23.2 H (10-20) Glucose 124 H (70-99(Fasting)) mg/dl POC Glucose 119 H 165 H (70-99) mg/dl Calcium 8.8 (8.6-10.3) mg/dl Troponin I High Sens (0-14) pg/ml C-Reactive Protein 13.88 H (0-0.5) mg/dl Random Vancomycin (10-20) mcg/ml Anaplasma Smear A. phagocytophilum DNA Babesia Smear Babesia microti DNA PCR Lyme Disease Screen (Negative) Tick Lyme Diseas (PCR) Ehrlichia DNA (PCR) Q Fever Phase I IgG Ab Q Fever Phase I IgM Ab Q Fever Phase II IgG Ab Q Fever Phase II IgM Ab Rickettsia IgG Ab Rickettsia IgM Ab Typhus Fever IgG Ab Typhus Fever IgM Ab 01/09/25 01/09/25 01/09/25 Range/Units 16:54 13:53 11:50 WBC (4.8-10.8) K/ul RBC (4.20-5.40) M/uL Hgb (12.0-16.0) g/dl Hct (37.0-47.0) % MCV (80.0-100.0) fL MCH (25.0-34.0) pg MCHC (32.0-36.0) g/dL RDW Std Deviation (36.4-46.3) fL RDW Coeff of Shilpi (11.5-14.5) % Plt Count (130-400) K/uL MPV (9.4-12.4) fL Sodium (136-145) mmol/L Potassium (3.5-5.1) mmol/L Chloride (98-107) mmol/L Carbon Dioxide (21-32) mmol/L Anion Gap (3-11) BUN (6-23) mg/dl Creatinine (0.6-1.2) mg/dl Est Cr Clr Drug Dosing ml/min eGFR BUN/Creatinine Ratio (10-20) Glucose (70-99(Fasting)) mg/dl POC Glucose 164 H 186 H (70-99) mg/dl Calcium (8.6-10.3) mg/dl Troponin I High Sens (0-14) pg/ml C-Reactive Protein (0-0.5) mg/dl Random Vancomycin (10-20) mcg/ml Anaplasma Smear See Comment A. phagocytophilum DNA Pending Babesia Smear See Comment Babesia microti DNA PCR Pending Lyme Disease Screen Negative (Negative) Tick Lyme Diseas (PCR) Cancelled Ehrlichia DNA (PCR) Pending Q Fever Phase I IgG Ab Pending Q Fever Phase I IgM Ab Pending Q Fever Phase II IgG Ab Pending Q Fever Phase II IgM Ab Pending Rickettsia IgG Ab Pending Rickettsia IgM Ab Pending Typhus Fever IgG Ab Pending Typhus Fever IgM Ab Pending 01/09/25 01/09/25 Range/Units 11:03 08:06 WBC (4.8-10.8) K/ul RBC (4.20-5.40) M/uL Hgb (12.0-16.0) g/dl Hct (37.0-47.0) % MCV (80.0-100.0) fL MCH (25.0-34.0) pg MCHC (32.0-36.0) g/dL RDW Std Deviation (36.4-46.3) fL RDW Coeff of Shilpi (11.5-14.5) % Plt Count (130-400) K/uL MPV (9.4-12.4) fL Sodium (136-145) mmol/L Potassium (3.5-5.1) mmol/L Chloride (98-107) mmol/L Carbon Dioxide (21-32) mmol/L Anion Gap (3-11) BUN (6-23) mg/dl Creatinine 0.56 L (0.6-1.2) mg/dl Est Cr Clr Drug Dosing 146.6 ml/min eGFR 109.06 BUN/Creatinine Ratio (10-20) Glucose (70-99(Fasting)) mg/dl POC Glucose (70-99) mg/dl Calcium (8.6-10.3) mg/dl Troponin I High Sens < 2.3 (0-14) pg/ml C-Reactive Protein (0-0.5) mg/dl Random Vancomycin 9.9 L (10-20) mcg/ml Anaplasma Smear A. phagocytophilum DNA Babesia Smear Babesia microti DNA PCR Lyme Disease Screen (Negative) Tick Lyme Diseas (PCR) Ehrlichia DNA (PCR) Q Fever Phase I IgG Ab Q Fever Phase I IgM Ab Q Fever Phase II IgG Ab Q Fever Phase II IgM Ab Rickettsia IgG Ab Rickettsia IgM Ab Typhus Fever IgG Ab Typhus Fever IgM Ab Spec: [id number] Collected: 01/08/25-152 Received: 01/08/25-[address]: Len Sotelo MD Copy To: Susan Navarro, D.O. Source: Joint Fluid,Knee OV Order: Ordered: Aer/Valentine Cult/Sm Comments: Comment 1. left knee joint fluid for culture Procedure Result Verified Site Gram Stain Final 01/10/25-0707 Gram Stain Result Many Polys No Organisms Seen Aero/Valentine Cult Preliminary 01/09/25-1223 No growth to date. Knee aspirate 01/07/25 as above Blood Cx x2 No growth
--- NOTE | 2025-01-10 11:53 | Electrocardiogram Report ---
Test Reason : Blood Pressure : */* mmHG Vent. Rate : 77 BPM Atrial Rate : 77 BPM P-R Int : 176 ms QRS Dur : 154 ms QT Int : 438 ms P-R-T Axes : 15 5 53 degrees QTcB Int : 495 ms Normal sinus rhythm Left bundle branch block Abnormal ECG When compared with ECG of 08-Jan-2025 14:48, Fusion complexes are no longer Present Confirmed by Sergey Marie ([id number]) on 01/10/2025 11:52:57 AM Referred By: REFERRED SELF Confirmed By: Sergey Marie
--- NOTE | 2025-01-10 12:06 | XCELERA ---
[id number]
--- NOTE | 2025-01-10 17:49 | Hospitalist Progress Note ---
Date of Service January 10, 2025 Assessment & Plan (1) Septic arthritis of knee, left: (2) Type 2 diabetes mellitus: Plan 55-year-old female PMHx psoriatic arthritis, HTN, DM, and Badillo's palsy presenting for L knee pain and swelling x 1 week. ED evaluation concerning for elevated ESR and CRP (72 and 14.63 respectively) with L knee joint effusion. Synovial fluid analysis with WBC > 50k. Will be admitted for septic arthritis, with ortho consult placed. #Septic Arthritis, L knee ddx is flare of psoriatic arthritis which can mimic septic joint History of psoriatic arthritis/HLA-B27 positive/inflammatory joint disease, follows with rheumatology most recent visit being 12/25/2023. Hx of meniscus repair ~ 10 years ago. R knee XR with small joint effusion Mild leukocytosis (12), CRP 14.63, ESR 72 on admisson Synovial fluid analysis WBC 79,600, crystal analysis without evidence of gout or psuedogout Continue vancomycin Ortho consulted - washout 01/09, follow cultures - pending and gram stain negative. outpatient follow up in 2 weeks Pain control: Acetaminophen prn pain/fever, oxycodone PT/OT slight increase in CRP, continue to trend Gram stain pending - if concern for organism, consult ID CBC, BMP and CRP - reviewed - no leukocytosis, no fever, CRP down a little remains elevated at 13.88 #psroasis Mainly with psoriatic arthritis - which was well controlled with NSAID but stopped with LFT elevation. has not been on topical but worsening rash on neck and groin area cont betamethasone cream followed by Dr. Villalobos #New LBBB Seen on EKG perioperatively with induction of anesthesia with versed and fentanyl. Pt denies CP/SOB/palpiations, but does report occasional "esophageal spams" last one 01/07 Consulted cardiology Reviewed TTE 01/10 - normal LV EF 55-60% no rwma's, borderline LVH, no valvular pathology - reassuring #T2DM H/o DMT2; at home regimen Jardiance, insulin glargine 40U HS, metformin - HELD A1c 7.7 Lantus 20u HS, SSI with target BSG range 110-140mg/dL, CF 30, carb ratio 10 #HTN- Amlodipine, lisinopril - continue Dispo: continued inpatient stay, cardiology consult, following cultures. VTE Prophylaxis: enoxaparin Admission and Anticipated Discharge Date Admission Date: January 08, 2025 Subjective L knee pain tolerable and can ambulate few steps, adequate pain control, ortho examined today Has been having skin flare of psoriasis Arthritis more quiescent lately - has had sausage digits Physical Exam 2 Physical Exam: Last 24h vitals reviewed GEN: no acute distress, sitting in bed HEENT: pupils equal, sclerae anicteric, moist MM RESP: normal WOB, CTAB CV: reg no mrg ABD: soft/nt/nd +BT : no raymond SKIN: warm and dry, plaques with scale especially around collar area, wrist, arms NEURO: AOx person, place, and situation. Face symmetric, speech normal, moves 4 ext spontaneously and equally Results & Data Results & Data Vital Signs (Past 12 Hours) Vital Signs Temp Pulse Pulse Resp BP BP Pulse Ox 01/10/25 15:47 37.0 C 73 20 126/81 99 01/10/25 13:37 80 01/10/25 11:50 36.6 C 77 24 114/71 98 01/10/25 08:08 36.8 C 74 16 128/80 97 01/10/25 07:34 71 O2 Del Method 01/10/25 15:47 Room Air 01/10/25 13:37 01/10/25 11:50 Room Air 01/10/25 08:08 Room Air 01/10/25 07:34 Laboratory Results 01/10/25 06:11 01/10/25 06:11 PG Care Time/CCT Total # of Minutes Spent Total Time Spent with Patient: Total time spent is greater than 50% in coordination of care (as documented) at patient's floor/unit and/or counseling patient: Coding Level of Care Code 59210 SUB INP/OBS CARE 2/35MIN Diagnoses Septic arthritis of knee, left M00.9 Type 2 diabetes mellitus E11.9
[2025-01-10] MEDS: ENOXAPARIN INJ 40 MG/0.4 ML SYR SQ SCH (20:16)
[2025-01-11 06:58] LABS: Creatinine Clr Calc Pharmacy 164.0 ml/min
--- NOTE | 2025-01-11 08:54 | Orthopedic Progress Note ---
Date of Service January 11, 2025 Assessment & Plan (1) Septic arthritis of knee, left: Plan: POD #3 s/p arthroscopic I&D left knee, improving. Initially with elevated WBC, ESR, CRP and concern for septic arthritis. No growth with cultures to date. DDx: Left knee Septic arthritis vs Psoriatic arthritis flare PLAN: Ice with easy wrap Weightbearing as tolerated with walker or crutches PT/OT Pain control with p.o. medication Currently on IV vancomycin DVT prophylaxis per medicine discretion Dressing changed 01/10/25 HVAC d/c 01/10/25 Will continue to follow cultures. She may need ID consult Patient will need a 1-week follow-up in our clinic, currently has appointment with Dr. Sotelo on Sunday, may need to change if still in house. Admission and Anticipated Discharge Date Admission Date: January 08, 2025 Subjective Knee feeling better, increased mobility and able to bare weight, using cane. Did c/o increased pain overnight that required stronger oral pain medicine. Physical Exam Physical Exam: LLE: Sensation to light touch intact distally. Motor gastroc soleus, Tib ant, EHL intact & able to preform straight leg raise. 2+ DP pulse. Dressing clean, dry, intact. Knee ROM 0-90 deg. Results & Data Vital Signs (Past 12 Hours) Vital Signs Temp Pulse Pulse Resp BP BP Pulse Ox 01/11/25 07:19 70 01/11/25 07:13 37.0 C 66 18 119/78 97 01/11/25 04:32 36.5 C 68 14 114/76 94 01/11/25 00:17 36.7 C 67 18 103/58 L 94 01/10/25 21:48 78 O2 Del Method 01/11/25 07:19 01/11/25 07:13 Room Air 01/11/25 04:32 Room Air 01/11/25 00:17 Room Air 01/10/25 21:48 Laboratory Results 01/11/25 01/11/25 01/10/25 Range/Units 08:10 06:02 20:05 Creatinine 0.50 L (0.6-1.2) mg/dl Est Cr Clr Drug Dosing 164.0 ml/min eGFR 112.08 POC Glucose 126 H 184 H (70-99) mg/dl 01/10/25 01/10/25 Range/Units 17:07 12:16 Creatinine (0.6-1.2) mg/dl Est Cr Clr Drug Dosing ml/min eGFR POC Glucose 149 H 127 H (70-99) mg/dl C&S left knee x 2 No growth to date Blood Cx x2 No growth to date
--- NOTE | 2025-01-11 10:20 | Hospitalist Progress Note ---
Date of Service January 11, 2025 Assessment & Plan (1) Septic arthritis of knee, left: (2) Type 2 diabetes mellitus: Plan 55-year-old female PMHx psoriatic arthritis, HTN, DM, and Badillo's palsy presenting for L knee pain and swelling x 1 week. ED evaluation concerning for elevated ESR and CRP (72 and 14.63 respectively) with L knee joint effusion. Synovial fluid analysis with WBC > 50k. Will be admitted for septic arthritis, with ortho consult placed. #Septic Arthritis, L knee ddx is flare of psoriatic arthritis which can mimic septic joint History of psoriatic arthritis/HLA-B27 positive/inflammatory joint disease, follows with rheumatology most recent visit being 12/25/2023. Hx of meniscus repair ~ 10 years ago. R knee XR with small joint effusion Mild leukocytosis (12), CRP 14.63, ESR 72 on admisson Synovial fluid analysis WBC 79,600, crystal analysis without evidence of gout or psuedogout Continue vancomycin Ortho consulted - washout 01/09, follow cultures - follow up in 2 weeks Pain control: Acetaminophen prn pain/fever, oxycodone PT/OT - rec home. CRP decreasing. cultures negative but improving with antibiotics - consulted ID for recs #psroasis Mainly with psoriatic arthritis - which was well controlled with NSAID but stopped with LFT elevation. has not been on topical but worsening rash on neck and groin area. Follows with Dr. Villalobos - has not seen recently, no biologics cont betamethasone cream Continue nystatin on groin fungal rash #New LBBB Seen on EKG perioperatively with induction of anesthesia with versed and fentanyl. Pt denies CP/SOB/palpiations, but does report occasional "esophageal spams" last one 01/07 Consulted cardiology - Reviewed TTE 01/10 - normal LV EF 55-60% no rwma's, borderline LVH, no valvular pathology - reassuring. Lyme negative Outpaient folllowup #T2DM H/o DMT2; at home regimen Jardiance, insulin glargine 40U HS, metformin - HELD A1c 7.7 Lantus 20u HS, SSI with target BSG range 110-140mg/dL, CF 30, carb ratio 10 #HTN- Amlodipine, lisinopril - continue Dispo: continued inpatient stay, ID consult tomorrow and hopefully discharge VTE Prophylaxis: enoxaparin follow ups on discharge: ortho, rheum, cardiology Admission and Anticipated Discharge Date Admission Date: January 08, 2025 Subjective Feeling better today, more mobility to her knee. pain realitvely well controlled. encouraged ice for sharp pains rash is improving Review of Systems Review of Systems: All systems reviewed & are unremarkable except as noted in Subjective Physical Exam Physical Exam: General: NAD, VS as above Resp: normal respiratory effort, lungs clear to auscultation CV: RRR, no murmur, Abd: normal bowel sounds, non tender, no hepatosplenomegaly Extremities: Moves all extremities, left knee with caden wrap in place, able to bend slightly and lift off bed Neuro: A&O x3, skin: psoriasis lesions to neck significantly less redness . Groin rash still with open areas, but improved apperance Results & Data Results & Data Vital Signs (Past 12 Hours) Vital Signs Temp Pulse Pulse Resp BP BP Pulse Ox 01/11/25 07:19 70 01/11/25 07:13 98.6 F 66 18 119/78 97 01/11/25 04:32 97.7 F 68 14 114/76 94 01/11/25 00:17 98.1 F 67 18 103/58 L 94 O2 Del Method 01/11/25 07:19 01/11/25 07:13 Room Air 01/11/25 04:32 Room Air 01/11/25 00:17 Room Air Laboratory Results cr reviewed PG Care Time/CCT Total # of Minutes Spent Total Time Spent with Patient: Total time spent is greater than 50% in coordination of care (as documented) at patient's floor/unit and/or counseling patient: Coding Level of Care Code 23436 SUB INP/OBS CARE 2/35MIN Diagnoses Septic arthritis of knee, left M00.9 Type 2 diabetes mellitus E11.9
--- NOTE | 2025-01-11 11:45 | Pharmacy Report ---
Pharmacy PK ABX Note - Date of Service January 11, 2025 - Assessment and Plan Assessment 01/11: * Day #5 of vancomycin. Random level this AM was therapeutic. * Awaiting ID input. No growth to date in any cultures. 01/09: * Random vancomycin level this AM was 9.9 mcg/ml - current vancomycin regimen associated with below goal AUC/SANIYA therefore will increase to 1250 mg iv q 8 hours 01/08: * 54 year old F with h/o of psoriatic arthritis and diabetes who presented with L knee pain and swelling x 1. ESR and CRP elevated. Small L knee effusion noted on Knee XR. Synovial fluid analysis showing WBC 79,000 with elevated neutrophil percentage. L knee culture and BC pending. Patient ordered empiric vancomycin IV for septic arthritis. Ortho consulted. Plan Vancomycin * Current regimen: 1250 mg IV every 8 hours * Random level obtained 01/11/25 resulted as 14 mcg/mL. This is predicted to achieve target AUC/SANIYA of 400-600 mg/L.hr * Predicted AUC at steady state: 482 mg/L.hr * Continue 1250 mg IV every 8 hours * Repeat random level ordered for: 01/14/25 Pharmacy will continue to follow and will adjust dose/frequency as necessary. Thank you.
[2025-01-11] MEDS: VANCOMYCIN LEVEL ONE (12:16)
[2025-01-12 07:04] LABS: Creatinine Clr Calc Pharmacy 126.5 ml/min
--- NOTE | 2025-01-12 09:26 | Orthopedic Progress Note ---
Date of Service January 12, 2025 Assessment & Plan (1) Septic arthritis of knee, left: Plan: POD #4 s/p arthroscopic I&D left knee, improving. Initially with elevated WBC, ESR, CRP and concern for septic arthritis. No growth with cultures to date. DDx: Left knee Septic arthritis vs Psoriatic arthritis flare PLAN: Ice with easy wrap Weightbearing as tolerated with walker or crutches PT/OT Pain control with p.o. medication Currently on IV vancomycin, switch to PO Abx per ID for 2 weeks prophylaxis DVT prophylaxis per medicine discretion Dressing changed 01/12/25 - Xeroform, 4 x 4's and Tegaderm applied. Can reinforce as needed. Will continue to follow cultures. 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 Sotelo on Sunday, may need to change if still in house. Admission and Anticipated Discharge Date Admission Date: January 08, 2025 Subjective Doing well today. Reports no pain. Occasional sharp pain at night. Physical Exam Physical Exam: Dressing was taken down. Patient has moderate swelling. She has some light tenderness to palpate mostly laterally over the joint line. She has full extension and about 45 degrees of active flexion. Full strength dorsiflexion and plantarflexion 5/5. Sensation intact distally light touch and 2+ dorsal pedal pulses present. Results & Data Vital Signs (Past 12 Hours) Vital Signs Temp Pulse Pulse Resp BP Pulse Ox O2 Del Method 01/12/25 07:32 65 01/12/25 04:26 36.6 C 65 14 116/72 94 Room Air 01/12/25 00:26 36.7 C 76 20 119/74 94 Room Air 01/11/25 21:44 77 Laboratory Results Microbiology 01/08/25 15:21 Gram Stain - Final Joint Fluid,Knee Aerobic and Anaerobic Culture - Preliminary No growth to date. 01/08/25 00:15 Gram Stain - Final Knee,Left Aerobic and Anaerobic Culture - Preliminary No growth to date. 01/12/25 01/12/25 01/11/25 Range/Units 07:52 06:09 20:06 Creatinine 0.65 (0.6-1.2) mg/dl Est Cr Clr Drug Dosing 126.5 ml/min eGFR 105.21 POC Glucose 113 H 166 H (70-99) mg/dl Random Vancomycin (10-20) mcg/ml 01/11/25 01/11/25 01/11/25 Range/Units 17:08 12:02 10:47 Creatinine (0.6-1.2) mg/dl Est Cr Clr Drug Dosing ml/min eGFR POC Glucose 135 H 124 H (70-99) mg/dl Random Vancomycin 14.0 (10-20) mcg/ml
[2025-01-12 11:04] VITALS: BP 117/74; RESP 18; TEMP 98.2; O2SAT 97
--- NOTE | 2025-01-12 11:20 | Infectious Disease Consult ---
Date of Consultation January 12, 2025 Assessment & Plan (1) Effusion, left knee: Plan Problems: #L knee swelling/pain s/p I&D (01/08/25) #Psoriatic arthritis Micro: 01/08 OR L knee joint fluid cx: NGTD. GS no org 01/08 L knee synovial fluid cx: NGTD. GS no org 01/07 BCx x2: NGTD Abx: Vanc 01/08 - present 52 yo F with psoriatic arthritis, HTN, DM, Badillo's palsy who presented on 01/07 with L knee pain and swelling x 1 week, admitted with concern for L knee septic arthritis. Has a history of prior meniscus repair on her L knee ~10 years ago. About 1 week prior to admission, pt noted that her L knee was "catching" more when she walked and was becoming edematous. Was having difficulty ambulating. At worst, pain is 8/10. Denies fevers but has had chills for past 3 days. Denies trauma to her leg. On presentation, pt was afebrile, VSS. Labs showed WBC 12.19, ESR 72, CRP 14.63, procal 0.05. Lyme screen negative. L knee XR with no acute findings. L knee arthrocentesis performed, which showed 79.6K WBCs (90.8% WBCs), 10K RBCs, no crystals, gram stain negative, culture NGTD. Pt was started on vanc after arthrocentesis, and ortho was consulted. Pt was taken to the OR on 01/08 for I&D. Noted significant turbid yellow fluid aspirated from the joint, and synovitis. Synovial fluid sent for testing, which showed 48,130 WBCs (91% PMNs), 10,000 RBCs, gram stain negative, culture NGTD. Leukocytosis has resolved. Discussion: With L knee synovial fluid culture prior to first dose of antibiotic NGTD, think septic arthritis is less likely. 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 Do not think MRSA coverage is needed, as would have expected MRSA to grow out on culture if it were present. Recommendations: - Can discharge with cephalexin 1 g PO q6h through 01/21 to complete a total 2 week course from I&D - Can follow-up non-finalized L knee cultures as outpatient Will sign off. Consultation Information This patient recommendation is based on a telemedicine consult request which was completed asynchronously through chart review and information provided by the primary physician. The patient was not seen or examined today. The evaluation is consultative in nature and all patient care and treatment decisions can either be accepted or rejected by the patient's primary hospital-based treating physician using their own independent medical judgment for their patient. Food Court Team Member contact information: Please call [facility] Center . (Phone Number For Physician Use Only) An e-consult was performed as the video cart is not functioning. Time Spent Reviewing Chart: 31+ minutes History of Present Illness Reason for Consultation: ? L knee septic arthritis Attending Physician: Bonita Ch MD History of Present Illness 52 yo F with psoriatic arthritis, HTN, DM, Badillo's palsy who presented on 01/07 with L knee pain and swelling x 1 week. Has a history of prior meniscus repair on her L knee ~10 years ago. About 1 week prior to admission, pt noted that her L knee was "catching" more when she walked and was becoming edematous. Was having difficulty ambulating. At worst, pain is 8/10. Denies fevers but has had chills for past 3 days. Denies trauma to her leg. On presentation, pt was afebrile, VSS. Labs showed WBC 12.19, ESR 72, CRP 14.63, procal 0.05. Lyme screen negative. L knee XR with no acute findings. L knee arthrocentesis performed, which showed 79.6K WBCs (90.8% WBCs), 10K RBCs, no crystals, gram stain negative, culture NGTD. Pt was started on vanc after arthrocentesis, and ortho was consulted. Pt was taken to the OR on 01/08 for I&D. Noted significant turbid yellow fluid aspirated from the joint, and synovitis. Synovial fluid sent for testing, which showed 48,130 WBCs (91% PMNs), 10,000 RBCs, gram stain negative, culture NGTD. Leukocytosis has resolved. Allergies Allergy/AdvReac Type Severity Reaction Status Date / Time morphine Allergy Severe Severe Verified 12/25/23 14:52 stomach pain Sulfa (Sulfonamide Allergy Intermediate HIVES Verified 12/25/23 14:52 Antibiotics) Home Medications Medication Instructions Recorded Confirmed Type lisinopril 20 mg tablet 20 mg PO QAM 09/21/23 01/07/25 History metformin 500 mg tablet,extended 500 mg PO BID 09/21/23 01/07/25 History release 24 hr empagliflozin 10 mg tablet 10 mg PO DAILY 12/25/23 01/07/25 History (Jardiance) amlodipine 5 mg tablet 5 mg PO QAM 01/07/25 01/07/25 History diclofenac sodium 75 mg 75 mg PO BID PRN Pain 01/07/25 01/07/25 History tablet,delayed release insulin glargine 100 unit/mL (3 40 unit subcut HS 01/07/25 01/07/25 History mL) subcutaneous pen (Lantus Solostar U-100 Insulin) Patient History Medical History (Updated 01/12/25 @ 12:54 by Pebbles Salcedo MD) Encounter for pre-operative examination Type 2 diabetes mellitus Psoriatic arthritis Badillo's palsy HTN (hypertension) Surgical History H/O left knee surgery S/P lumbar fusion Approximately 2020 History of hysterectomy History of cholecystectomy Family History Other Arthritis Social History Smoking Status: Former smoker Hx Alcohol Use: No Hx Substance Use: No Preferred Language: Gambian Communication Ability: Effective Application Integrator Required: No Beliefs That Will Affect Care: None Current Living Situation: Spouse Current Living Situation Comment: , daughter, son; house - accessible in front, bedroom is upstairs Feels Safe at Home: Yes Safety Concerns: Feels Safe At This Time Assistive Devices: None Results & Data Vital Signs (Past 12 Hours) Vital Signs Temp Pulse Pulse Resp BP Pulse Ox O2 Del Method 01/12/25 11:02 36.8 C 73 18 117/74 97 Room Air 01/12/25 07:32 65 01/12/25 04:26 36.6 C 65 14 116/72 94 Room Air 01/12/25 00:26 36.7 C 76 20 119/74 94 Room Air Laboratory Results BMP 01/12/25 06:09 Creatinine 0.65 Medications Administered Current Inpatient Medications Acetaminophen (Acetaminophen 500 Mg Tab) 1,000 mg PO Q8H PRN PRN Reason: Pain & Pre PT Stop: 02/07/25 01:30 Acetaminophen (Acetaminophen 500 Mg Tab) 1,000 mg PO Q8 EMIGDIO Stop: 02/07/25 21:59 Last Admin: 01/12/25 05:57 Dose: 1,000 mg Amlodipine Besylate (Amlodipine Besylate 5 Mg Tab) 5 mg PO QAM EMIGDIO Stop: 02/07/25 08:59 Last Admin: 01/12/25 08:33 Dose: 5 mg Aspirin (Aspirin 81 Mg Ectab) 81 mg PO BID [facility] Stop: 02/08/25 08:59 Last Admin: 01/12/25 08:33 Dose: 81 mg Betamethasone Dipropion Augmented (Betamethasone Dip Aug (Diprolene) 0.05% Cr 15 Gm Tube) 1 appln EXT BID [facility] Stop: 02/08/25 12:29 Last Admin: 01/12/25 08:34 Dose: 1 appln Calcium Carbonate (Calcium Carbonate 500 Mg Chewable Tab) 500 mg PO Q4H PRN PRN Reason: Indigestion Stop: 02/07/25 03:05 Last Admin: 01/08/25 05:14 Dose: 500 mg Dextrose (Dextrose 50% 50 Ml Syringe) 25 - 50 ml IV UD PRN; Protocol PRN Reason: Hypoglycemia Protocol Stop: 02/07/25 01:34 Docusate Sodium (Docusate Sodium 100 Mg Cap) 100 mg PO BID EMIGDIO Stop: 02/07/25 20:59 Last Admin: 01/12/25 08:48 Dose: 100 mg Enoxaparin Sodium (Enoxaparin Inj 40 Mg/0.4 Ml Syr) 40 mg SQ HS [facility] Stop: 02/09/25 20:59 Last Admin: 01/11/25 20:25 Dose: 40 mg Glucagon (Glucagon For Inj 1 Mg Vial) 1 mg SQ UD PRN; Protocol PRN Reason: Hypoglycemia Protocol Stop: 02/07/25 01:34 Glucose (Glucose 40% Gel 15 Gm Tube) 15 - 30 gm PO UD PRN; Protocol PRN Reason: Hypoglycemia Protocol Stop: 02/07/25 01:34 Glucose (Glucose 10 Tab/Tube) 4 - 8 tab PO UD PRN; Protocol PRN Reason: Hypoglycemia Protocol Stop: 02/07/25 01:34 Hydromorphone HCl (Hydromorphone Inj 0.5 Mg/0.5 Ml Syr) 0.25 mg IV Q3H PRN PRN Reason: Pain (1,2,3,4,5) & Pre PT Stop: 01/22/25 01:31 Hydromorphone HCl (Hydromorphone Inj 0.5 Mg/0.5 Ml Syr) 0.5 mg IV Q3H PRN PRN Reason: Pain (6,7,8,9,10) Stop: 01/22/25 01:31 Last Admin: 01/08/25 10:47 Dose: 0.5 mg Vancomycin HCl 1,250 mg/ (Sodium Chloride) 275 mls @ 200 mls/hr IV Q8H [facility] Stop: 01/15/25 11:59 Last Infusion: 01/12/25 05:58 Dose: Infused Insulin Aspart (Insulin Aspart Per Unit Charge) 0 units SC ACHS [facility] Stop: 02/07/25 20:59 Last Admin: 01/12/25 08:49 Dose: 6 units Insulin Glargine (Lantus Per Unit Charge) 20 units SQ HS EMIGDIO Stop: 02/07/25 20:59 Last Admin: 01/11/25 20:27 Dose: 20 units Lisinopril (Lisinopril 20 Mg Tab) 20 mg PO QAM [facility] Stop: 02/07/25 08:59 Last Admin: 01/12/25 08:34 Dose: 20 mg Melatonin (Melatonin 3 Mg Tab) 3 mg PO HS PRN PRN Reason: Insomnia Stop: 02/07/25 02:04 Miscellaneous (Carbohydrates For Hypoglycemia ) 15 - 30 gm PO UD PRN PRN Reason: Hypoglycemia Protocol Stop: 02/07/25 01:34 Miscellaneous Information (Vancomycin Consult Active) 1 each N/A UD PRN PRN Reason: Consult Stop: 02/07/25 01:40 Naloxone HCl (Naloxone Hcl 0.4 Mg/1 Ml Vial/Carp) 0.1 mg IV Q5M PRN PRN Reason: Oversedation/Resp Depression Stop: 02/07/25 18:05 Nystatin/Triamcinolone Acetonide (Nystatin/Triamcin Cr 15 Gm Tube) 1 appln EXT BID EMIGDIO Stop: 02/08/25 20:59 Last Admin: 01/12/25 08:34 Dose: 1 appln Ondansetron HCl (Ondansetron Inj 2 Mg/Ml 2 Ml Vial) 4 mg IV Q6H PRN PRN Reason: Nausea Stop: 02/07/25 02:04 Oxycodone HCl (Oxycodone Hcl Ir 5 Mg Tab (Immediate Release)) 5 - 10 mg PO Q4H PRN PRN Reason: Pain or Pre PT Stop: 01/22/25 18:05 Last Admin: 01/11/25 22:33 Dose: 10 mg Polyethylene Glycol (Polyethylene (Miralax) 17 Gm Pack) 17 gm PO DAILY PRN PRN Reason: Constipation Stop: 02/07/25 02:04 Last Admin: 01/10/25 20:15 Dose: 17 gm
[2025-01-12 13:33] VITALS: PULSE 92
--- NOTE | 2025-01-12 13:43 | Discharge Summary ---
Discharge Summary Date of Service January 12, 2025 Principal Dx & Hospital Course #1 = Principal Diagnosis (1) Septic arthritis of knee, left: (2) Type 2 diabetes mellitus: Plan #Septic Arthritis, L knee 55-year-old female PMHx psoriatic arthritis, HTN, DM, and Badillo's palsy presenting for L knee pain and swelling x 1 week. ED evaluation concerning for elevated ESR and CRP (72 and 14.63 respectively) with L knee joint effusion. Synovial fluid analysis with WBC > 50k. R knee XR with small joint effusion, hx of meniscus repair ~ 10 years ago. Mild leukocytosis (12), CRP 14.63, ESR 72 on admission. Admitted for ortho consult - had a washout with Dr. Sotelo on 01/09. Synovial fluid analysis WBC 79,600, crystal analysis without evidence of gout or pseudogout. Wound cultures no growth to date. Received IV vancomycin - was seen by ID and recommended course of Keflex QID through 01/21. Pain control with prn tylenol and oxycodone. PT/OT - rec home #psroasis Mainly with psoriatic arthritis - which was well controlled with NSAID but stopped with LFT elevation. has not been on topical but worsening rash on neck and groin area. Follows with Dr. Villalobos - has not seen recently, no biologics cont betamethasone cream - on chest/extremities Continue nystatin on groin fungal rash #New LBBB Seen on EKG perioperatively with induction of anesthesia with versed and fentanyl. Pt denies CP/SOB/palpitations, but does report occasional "esophageal spams" last one 01/07. Consulted cardiology - Reviewed TTE 01/10 - normal LV EF 55-60% no rwma's, borderline LVH, no valvular pathology - reassuring. Lyme negative. No events on telemetry monitoring. Outpatient follow up. #T2DM - Continue home regimen Jardiance, insulin glargine 40U HS, metformin. A1c 7.7 #HTN- Amlodipine, lisinopril - continue Dispo: discharge to home today follow ups on discharge: ortho, rheum, cardiology Notes For Next Care Provider Medication Changes From Visit course of keflex betamethasone cream and nystatin cream Admission HPI Per Admitting Provider 55-year-old female PMHx psoriatic arthritis, HTN, DM, and Badillo's palsy presenting for L knee pain and swelling x 1 week. History of prior meniscus repair on L knee around 10 years ago. Reports that she has a history of psoriatic arthritis and often finds herself scratching open areas on her legs when they become itchy. [place] she is concerned that when she scratched an area open that his led to her knee involvement. 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 States that the swelling has been coming and going but is at its worst the day of arrival. She was having difficulty ambulating because of it. At its worse, the pain is a 8/10 and described as a constant pain with occasional worsening sharp stabs. Currently her pain is a 4-5/10 on the pain scale. She denies fever but has had chills for the past 3 days. Denies trauma to the leg. Overall denies chest pain, SOB, palpitations, abdominal pain, N/V/D/C, numbness/tingling, URI symptoms, LUTS, weakness, or syncope. ED evaluation reveals CBC with leukocytosis 12.19, stable H&H; ESR 72; CMP sodium 135, BUN 25, ratio 29.8, glucose 247; lactate 1.5; CRP 14.63; procalcitonin 0.05; UA with glucose, no infection; synovial fluid analysis pending; Lyme negative; CTAP no acute findings, moderate stool in the colon, normal-appearing appendix, GB and uterus surgically absent; R knee XR small L knee effusion, no acute findings; lumbar spine CT normal, with L4-5 degenerative changes.; Provided with 1L NSS, ketorolac 15 mg IV, and acetaminophen 1 g IV in ED. Please see Dr. Navarro's attestation for adjustments/additions to treatment plan. Discharge Exam General: NAD, VS as above Resp: normal respiratory effort, CV: well perfused Abd: normal bowel sounds, non tender, no hepatosplenomegaly Extremities: Moves all extremities, left knee dressing c/d/i, knee swollen compared to right, but not erythematous or warm skin: psoriasis lesions to neck significantly less redness . Groin rash still with open areas, but improved appearance Discharge Plan Discharge Items Patient Disposition: Home - Self-Care Reason For Visit: SEPTIC ARTHRITIS, L KNEE Discharge Diagnosis: Left knee infection Activity: As commented below Activity Comment: continue exercises from PT and ortho to get stronger Weightbearing: Left weightbearing Weightbearing Comment: with walker or crutches Non-emergency contact: Primary Care Provider and Surgeon Call non-emergency contact if: you have any medication questions, your symptoms worsen, your pain is not controlled and your temperature is above 101 Follow-up/Referrals: Alphonso Irvin MD [Physician] - (follow up 2-3 months, new LBBB ) Issa Villalobos DO [Physician] - (Follow up 1-2 weeks ) Ana Kaba MD [Primary Care Provider] - (Follow up within one week ) Ángel Tavera PA [Physician Piece Maker] - 01/22/25 8:30 am Diet: Carb Consistent or DM2 Addtl Attending Provider Instructions: Ms. Eckert, You were hospitalized after having left knee swelling and inflammation - this was washed out in the OR by Dr. Sotelo on 01/09. You were seen by PT and OT who recommended you return home. You were seen by infectious disease who recommended antibiotics thorough 01/21. This will be Keflex every 6 hours, take the first do se tonight. Follow up with orthopedics Sunday as scheduled. Continue pain control with tylenol and oxycodone as needed. You were started on baby aspirin 81mg twice a day by ortho for DVT prevention - please discuss with ortho how long this will need to be continued. You can purchase this over the counter. Please monitor for constipation with opioid use - can use miralax or senna or colace over the counter to help with bowel movements. You also had a flare of your psorasis and were started on betamethasone cream - you can continue to use this twice a day for flares. Do not use this on areas of thin/sensitive skin - like face, groin, top of hands or feet. You were treated for a fungal infection in the groin area with nystatin - triamcinolone. Continue to use this twice a day as needed. Keep the area clean and dry and open to air when possible. Recommend 100% cotton underwear. While receiving anesthesia, you had a change in your heart rythym to a left bundle branch block. You were evaluated by cardiology and not further workup needed at this time. Your echocardiogram was reassuring. Follow up with cardiology in 2-3 months. Please follow up with your PCP in the next 7-10 days. Activity: You can do normal everyday activities as your body allows. Take rest breaks if you feel tired. Do not overexert. Stop activity if you have pain, shortness of breath or feel dizzy. Follow-up appointments: Make an appointment with your primary care physician within one week of discharge. A copy of this summary will be sent to them. Every time you see your primary care physician, or any other doctor, bring your medication list, and a list of questions. CONTACT YOUR PRIMARY CARE PROVIDER if you experience any of the following: Shortness of breath or difficulty breathing Fevers or chills Feeling tired with normal activity or experiencing dizziness or fainting Difficulty following your treatment plan, or difficulty taking medications CALL 911 OR GO TO THE EMERGENCY DEPARTMENT if you experience any of the following: Severe abdominal pain or nausea/vomiting Severe chest pain, or chest pain that radiates (moves) to your jaw or arm Sudden, severe shortness of breath or difficulty breathing Thank you for allowing us to participate in your care. Addtl Manager Ob Provider Instructions: Orthopedic instructions: Ice with easy wrap Weightbearing as tolerated with walker or crutches Patient will need a 2-week follow-up in our clinic. Pending Studies at Discharge: No Stand-Alone Forms: My [facility] Medications and DC Order Prescriptions: New aspirin 81 mg Tablet,Delayed Release (Dr/Ec) 81 mg PO BID Qty: 10 0RF oxycodone 5 mg Tablet 5 mg PO Q4H PRN (Reason: pain) Qty: 10 0RF betamethasone, augmented 0.05 % Cream 1 applic EXT BID PRN (Reason: psorasis) Qty: 15 0RF nystatin-triamcinolone 100,000-0.1 unit/g-% Cream 1 applic EXT BID PRN (Reason: skin yeast infection) Qty: 30 0RF cephalexin 500 mg capsule 1,000 mg PO QID 7 Days Qty: 56 0RF Continued Jardiance 10 mg tablet 10 mg PO DAILY metformin 500 mg tablet extended release 24 hr 500 mg PO BID lisinopril 20 mg tablet 20 mg PO QAM amlodipine 5 mg tablet 5 mg PO QAM diclofenac sodium 75 mg tablet,delayed release (DR/EC) 75 mg PO BID PRN (Reason: Pain) insulin glargine [Lantus Solostar U-100 Insulin] 100 unit/mL (3 mL) insulin pen 40 unit SUBCUT HS Discharge Orders: Discharge Order (Routine); Ordered 01/12/25 Ordered By: Krupa Hernandez/Other Patient Handouts: Managing Type 2 Diabetes Admission Data Admit Date/Time: 01/08/25 01:31 Attending Provider: Bonita Ch Admit Provider: Susan Navarro Primary Care Provider: Ana Kaba Other Providers: Len Sotelo; Alphonso Irvin Other Interventions: Discharge Summary Assessment (RN) Last Done: 01/12/25 13:19 Hospital Stay Data Consultations 01/08/25 02:05 Consult Orthopedic Surgery Routine 01/09/25 11:21 Consult Cardiology Routine 01/11/25 08:22 Consult Infectious Diseases Routine Procedures Performed Operation Date: 01/08/25 09:10 Actual Procedures p Left Knee Arthroscopic Incision and Drainage, Chondroplasty, Partial Lateral Meniscectomy(Left) - Len Sotelo MD Diagnostic Imagining Performed 01/07/25 21:32 CT Abd and Pelvis [CT abd pelvis IV con only] Stat CT lumbar spine w con Stat Pending Results Patient Have Any Pending Studies at Discharge: No Discharge Instructions Given to Patient (Per Discharging Provider) Ms. Eckert, You were hospitalized after having left knee swelling and inflammation - this was washed out in the OR by Dr. Sotelo on 01/09. You were seen by PT and OT who recommended you return home. You were seen by infectious disease who recommended antibiotics thorough 01/21. This will be Keflex every 6 hours, take the first dos e tonight. Follow up with orthopedics Sunday as scheduled. Continue pain control with tylenol and oxycodone as needed. You were started on baby aspirin 81mg twice a day by ortho for DVT prevention - please discuss with ortho how long this will need to be continued. You can purchase this over the counter. Please monitor for constipation with opioid use - can use miralax or senna or colace over the counter to help with bowel movements. You also had a flare of your psorasis and were started on betamethasone cream - you can continue to use this twice a day for flares. Do not use this on areas of thin/sensitive skin - like face, groin, top of hands or feet. You were treated for a fungal infection in the groin area with nystatin - triamcinolone. Continue to use this twice a day as needed. Keep the area clean and dry and open to air when possible. Recommend 100% cotton underwear. While receiving anesthesia, you had a change in your heart rythym to a left bundle branch block. You were evaluated by cardiology and not further workup needed at this time. Your echocardiogram was reassuring. Follow up with cardiology in 2-3 months. Please follow up with your PCP in the next 7-10 days. Activity: You can do normal everyday activities as your body allows. Take rest breaks if you feel tired. Do not overexert. Stop activity if you have pain, shortness of breath or feel dizzy. Follow-up appointments: Make an appointment with your primary care physician within one week of discharge. A copy of this summary will be sent to them. Every time you see your primary care physician, or any other doctor, bring your medication list, and a list of questions. CONTACT YOUR PRIMARY CARE PROVIDER if you experience any of the following: Shortness of breath or difficulty breathing Fevers or chills Feeling tired with normal activity or experiencing dizziness or fainting Difficulty following your treatment plan, or difficulty taking medications CALL 911 OR GO TO THE EMERGENCY DEPARTMENT if you experience any of the following: Severe abdominal pain or nausea/vomiting Severe chest pain, or chest pain that radiates (moves) to your jaw or arm Sudden, severe shortness of breath or difficulty breathing Thank you for allowing us to participate in your care. Total Time Total Time Spent Total Time Spent (In Minutes): Time spent day of discharge 38 minutes including direct patient care, medication reconciliation, documentation, review of labs and images, and coordination of care. case discussed with ID Coding Level of Care Code 75844 INP/OBS DISCH >30 MIN Diagnoses Septic arthritis of knee, left M00.9 Type 2 diabetes mellitus E11.9
[2025-01-14] MEDS ORDERED: VANCOMYCIN LEVEL ONE (03:00)
[2025-01-15 00:42] LABS: Q Fever IgG, Phase I NEGATIVE
== END 2025-01-12 14:18 | disposition home or self-care (01) | DRG 487 ==
LOC: ED 20:08 → EDINP 01-08 01:31 → SUATTDRO 01-08 01:31 → 2N 01-08 05:57
DX: Z87.891 Personal history of nicotine dependence; M25.462 Effusion, left knee; Z98.1 Arthrodesis status; Z88.2 Allergy status to sulfonamides; Z79.84 Long term (current) use of oral hypoglycemic drugs; I44.7 Left bundle-branch block, unspecified; I10 Essential (primary) hypertension; M23.252 Derangement of posterior horn of lateral meniscus due to old tear or injury, left knee; E11.9 Type 2 diabetes mellitus without complications; M00.9 Pyogenic arthritis, unspecified; Z79.4 Long term (current) use of insulin; M94.262 Chondromalacia, left knee; L40.59 Other psoriatic arthropathy; Z88.5 Allergy status to narcotic agent